=== PATIENT | male | born 1960 | race Caucasian/White ===

== ENCOUNTER → 2017-12-30 | Outpatient (CLI) | payer MEDICAID ==
[~2017-12-30] MED LIST: AC325T PO; AMIT10TA6 PO; AMIT50TA3 PO; ASP81CT PO; B 100 PO; DIGO250T PO; DLT120CCR PO; FLC1T PO; FLT05NA16 NSEACH; GBPN100C PO; IBP200T PO; LMT25T PO; MAGN100T3 PO; METO25TA PO; OSTEO BI-FLEX1 EACH PO; QTP100T PO; SRTR100T PO; ZINC15TA2 PO
== END ==
LOC: CARD 10:43
PROVIDERS: ATTEND Internal Medicine Cardiovascular Disease
DX: I47.1 Supraventricular tachycardia (principal); I63.9 Cerebral infarction, unspecified; R00.2 Palpitations; Z72.0 Tobacco use; I08.1 Rheumatic disorders of both mitral and tricuspid valves
CPT/HCPCS: 93306

== ENCOUNTER 2018-12-15 16:14 | Outpatient (RCR) | payer MEDICAID ==
[2018-12-24] MEDS ORDERED: QUET400T PO (13:03)
[2018-12-24] MEDS ORDERED: ATOR10TA66 PO (13:03)
[2018-12-24] MEDS ORDERED: ACAM333T8 PO (13:03)
[2018-12-24] MEDS ORDERED: METO-351 PO (13:03)
[2018-12-24] MEDS ORDERED: VARE0.5T PO (13:03)
[2018-12-24] MEDS ORDERED: SERT100T PO (13:03)
== END 2019-03-15 | disposition home or self-care (01) ==
LOC: CARD 16:14
PROVIDERS: ATTEND Physician Assistant
DX: I47.1 Supraventricular tachycardia (principal); R00.2 Palpitations; J44.9 Chronic obstructive pulmonary disease, unspecified; Z72.0 Tobacco use; Z82.49 Family history of ischemic heart disease and other diseases of the circulatory system

== ENCOUNTER 2018-12-18 09:37 | Emergency (ER) | payer MEDICAID ==
[~2018-12-18] VITALS: Ht 190.5 cm; Wt 68.0 kg
--- OUTSIDE RECORDS SUMMARY | 2018-12-18 09:44 | XMS REPORT ---
Author Author VICTORIANO BOSWELL Organization [facility] [address] [place] [address] Care Team Providers Care [employer] Specialist Name Role Phone VICTORIANO BOSWELL Unavailable PROBLEMS Type Condition ICD9-CM Code [id number] Code Onset Dates Condition Status SNOMED Code Problem Lumbago 724.2 Active 908343611 Problem Pain in soft tissues of limb 729.5 Active 52231798 Problem Unspecified dental caries 521.00 Active 38148454 Problem Cellulitis and abscess of leg, except foot 682.6 Active 041751200 Problem Chronic airway obstruction, not elsewhere classified 496 Active 62423463 Problem 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 Active 396916230 Problem Occlusion and stenosis of carotid artery without mention of cerebral infarction 433.10 Active 500872441528939 Problem Other specified cardiac dysrhythmias 427.89 Active 390157223 Problem Paroxysmal supraventricular tachycardia 427.0 Active 93513063 Problem Epilepsy, unspecified, not intractable, without status epilepticus G40.909 Active 93844468 Problem Allergic rhinitis, cause unspecified 477.9 Active 33630253 Problem Mixed hyperlipidemia E78.2 Active 044096988 Problem Unspecified epilepsy without mention of intractable epilepsy 345.90 Active 65869835 Problem Tobacco dependence F17.200 Active 76737280 Problem Type 1 diabetes mellitus without complications E10.9 Active 871447102 Problem ETD (eustachian tube dysfunction), left H69.82 Active 31654468 Problem Generalized anxiety disorder F41.1 Active 65768724 Problem Left maxillary sinusitis J32.0 Active 21753471 Problem Lipoma of other specified sites 214.8 Active 10730250 Problem Diabetes mellitus without mention of complication, type I [juvenile type], not stated as uncontrolled 250.01 Active 612138755 Problem PPV23 (PNEUMOVAX) DX V03.82 Active 64817898 Problem Nondependent tobacco use disorder 305.1 Active 578461407 Problem Need for prophylactic vaccination and inoculation, Influenza V04.81 Active 449027429 Problem Family history of prostate cancer Z80.42 Active 310550952 Problem Dental examination V72.2 Active 81780881 Problem Major depressive disorder, recurrent 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 Active 79223158 Problem Special screening for malignant neoplasms, colon V76.51 Active 444874706 Problem Cerebrovascular accident (CVA), unspecified mechanism I63.9 Active 592612966 Problem PSVT (paroxysmal supraventricular tachycardia) I47.1 Active 86713168 Problem Unspecified tachycardia 785.0 Active 1558857 Problem Tinea corporis B35.4 Active 90689007 Problem Marfan's syndrome 759.82 Active 26459064 Problem Sinusitis J32.9 Active 17966933 Problem Other dyspnea and respiratory abnormalities 786.09 Active 388610934 Problem Shoulder pain, right 719.41 Active 77756574 Problem Palpitations 785.1 Active 31796203 Problem Sinusitis chronic, frontal J32.1 Active 51454847 Problem Other, multiple, and unspecified sites, insect bite, nonvenomous, without mention of infection 919.4 Active 100525956 Problem Pain in right shoulder M25.511 Active 565871886 Problem Chest pain, unspecified 786.50 Active 14736427 Problem Chronic obstructive pulmonary disease, unspecified J44.9 Active 31892094 Problem Palpitations R00.2 Active 01231283 Problem Marfan's syndrome, unspecified Q87.40 Active 13007963 ALLERGIES No Information ENCOUNTERS Encounter Location Date Diagnosis [facility] [address] [place] [address] Jul, Mixed hyperlipidemia E78.2 [facility] [address] [place] [address] Jul, [facility] for [facility] Z[facility] [address] [place] [address] Jul, Major depressive disorder, recurrent 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 and Generalized anxiety disorder F41.1 [facility] [address] [place] [address] Feb, [facility] [address] [place] [address] January, Left maxillary sinusitis J32.0 [facility] [address] [place] [address] 17 Oct, [address] [address] May, Tobacco dependence F17.200 ; Mixed hyperlipidemia E78.2 and Encounter for immunization Z23 [address] [address] Apr, Major depressive disorder, recurrent 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 ; Other custodial (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 ; Palpitations R00.2 ; PSVT ( paroxysmal supraventricular tachycardia) I47.1 ; Cerebrovascular accident (CVA) , unspecified mechanism I63.9 and Tobacco use Z72.[address] [address] Apr, Tobacco dependence F17.200 and Type 1 diabetes mellitus without complications E10.[address] [address] Mar, Tobacco dependence F17.200 ; Chronic obstructive pulmonary disease, unspecified J44.9 ; Mixed hyperlipidemia E78.2 ; Palpitations R00.2 and Family history of prostate cancer Z80.[address] [address] Dec, Major depressive disorder, recurrent 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 ; Type 1 diabetes mellitus without complications E10.9 and Other custodial (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 [address] Jul, ETD ( eustachian tube dysfunction), left H69.82 and Tobacco dependence F17.200 [place] [address] [address] Jun, Pain in left shoulder M25.512 [facility] [address] [address] Jun, Pain in left shoulder M25.512 [place] [address] [id number] [place] [address] Jun, Pain in left shoulder M25.512 [facility] [id number] [place] [address] Jun, Pain in left shoulder M25.512 [facility] [id number] [place] [address] Jun, Pain in left shoulder M25.512 [facility] [id number] [place] [address] May, Pain in right shoulder M25.511 [facility] [address] [place] [address] Apr, Pain in right shoulder M25.511 [facility] [address] [place] [address] Dec, Tinea corporis B35.4 and Sinusitis J32.9 [facility] [address] [place] [address] Sep, Sinusitis chronic, frontal J32.1 and URI (upper respiratory infection) J06.[address] [address] May, Shoulder pain, right 719.41 [facility] [address] [address] January, Chronic airway obstruction, not elsewhere classified 496 ; Palpitations 785.1 ; Bleeds easily 287.9 and Mixed hyperlipidemia 272.2 [facility] [id number] [place] [address] Dec, [facility] [id number] [place] [address] Dec, [facility] [id number] [place] [address] Sep, [facility] [id number] [place] [address] Sep, [facility] [id number] [address] Aug, [facility] [id number] [address] Aug, [facility] [address] [place] [address] Aug, [facility] [place] [facility] [id number] [address] Aug, [facility] [place] [facility] [id number] [address] Jul, [facility] [place] [facility] [id number] [address] Jul, [facility] [address] [place] [address] Jul, [facility] [address] [place] [address] Jul, [facility] [place] [facility] [id number] [address] Jul, [facility] [place] [facility] [id number] [address] Jul, [facility] [place] [facility] [address] [address] May, [facility] [place] [facility] [address] [address] May, [facility] [address] [place] [address] May, [facility] [place] [facility] [id number] [address] May, [facility] [place] [facility] [address] [address] Feb, [facility] [address] [place] [address] Feb, [facility] [address] [place] [address] Feb, [facility] [address] [facility] [id number] [place] [address] Feb, [facility] [address] [place] [address] Feb, [facility] [address] [facility] [id number] [place] [address] Feb, [facility] [address] [facility] [id number] [place] [address] January, [facility] [address] [facility] [id number] [place] [address] January, [facility] [address] [place] [address] January, [facility] [address] [facility] [id number] [place] [address] January, [facility] [id number] [address] Dec, [facility] [address] [facility] [id number] [place] [address] Dec, [facility] [id number] [address] Dec, [facility] [address] [facility] [id number] [place] [address] Nov, [facility] [address] [facility] [id number] [place] [address] Nov, [facility] [address] [place] [address] Nov, [facility] [address] [facility] [id number] [address] Nov, [facility] [address] [facility] [id number] [place] [address] May, [facility] [address] [place] [address] May, [facility] [id number] [address] 10 May, 2013 [facility] [address] [id number] [place] [address] May, [facility] [place] [facility] [address] [id number] [place] [address] January, [facility] [address] [id number] [place] [address] Nov, [facility] [address] [id number] [place] [address] Jul, [facility] [address] [id number] [place] [address] Jul, [facility] [address] [id number] [place] [address] Jun, [facility] [address] [id number] [place] [address] Jun, [facility] [address] [id number] [place] [address] January, [facility] [address] [id number] [place] [address] January, [facility] [address] [id number] [place] [address] January, [facility] [address] [id number] [place] [address] Dec, [facility] [address] [id number] [place] [address] Oct, [facility] [place] [facility] [address] [id number] [place] [address] Oct, [facility] [place] [facility] [address] [id number] [place] [address] Oct, [facility] [place] [facility] [address] [id number] [place] [address] Oct, [facility] [address] [facility] [id number] [place] [address] Sep, [facility] [address] [facility] [id number] [place] [id number] Sep, IMMUNIZATIONS No Known Immunizations SOCIAL HISTORY Never Assessed REASON FOR VISIT refill medication PLAN OF CARE VITAL SIGNS MEDICATIONS Medication Instructions Dosage Frequency Start Date End Date Duration Status Atorvastatin Calcium 10 mg Orally Once a day 1 tablet 24h May, 30 day(s) Active RESULTS No Results PROCEDURES No Known procedures INSTRUCTIONS MEDICATIONS ADMINISTERED No Known Medications MEDICAL (GENERAL) HISTORY Type Description Date Medical History Chronic obstructive pulmonary disease, unspecified Medical History Mixed hyperlipidemia Medical History Palpitations Medical History Marfan's syndrome, unspecified Medical History Epilepsy, unspecified, not intractable, without status epilepticus Surgical History C 5-7 fusion 2006 Surgical History Cadiac ablation-stroke at this time 2006 Hospitalization History Hospitalization for surgery only Hospitalization [place]
--- OUTSIDE RECORDS SUMMARY | 2018-12-18 09:44 | XMS REPORT ---
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 Role Phone VICTORIANO BOSWELL Unavailable PROBLEMS Type Condition ICD9-CM Code QAY76-MA Code Onset Dates Condition Status SNOMED Code Problem Lumbago 724.2 Active 771999084 Problem Pain in soft tissues of limb 729.5 Active 65047289 Problem Unspecified dental caries 521.00 Active 21509167 Problem Cellulitis and abscess of leg, except foot 682.6 Active 178399553 Problem Chronic airway obstruction, not elsewhere classified 496 Active 30595790 Problem 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 Active 642484139 Problem Occlusion and stenosis of carotid artery without mention of cerebral infarction 433.10 Active [id number] Problem Other specified cardiac dysrhythmias 427.89 Active 548378702 Problem Paroxysmal supraventricular tachycardia 427.0 Active 11533802 Problem Epilepsy, unspecified, not intractable, without status epilepticus G40.909 Active 43313772 Problem Allergic rhinitis, cause unspecified 477.9 Active 08346076 Problem Mixed hyperlipidemia E78.2 Active 910735337 Problem Unspecified epilepsy without mention of intractable epilepsy 345.90 Active 72637972 Problem Tobacco dependence F17.200 Active 75146702 Problem Type 1 diabetes mellitus without complications E10.9 Active 142065358 Problem ETD (eustachian tube dysfunction), left H69.82 Active 92208874 Problem Generalized anxiety disorder F41.1 Active 13694980 Problem Left maxillary sinusitis J32.0 Active 07384122 Problem Lipoma of other specified sites 214.8 Active 81934771 Problem Diabetes mellitus without mention of complication, type I [juvenile type], not stated as uncontrolled 250.01 Active 803629212 Problem PPV23 (PNEUMOVAX) DX V03.82 Active 73161826 Problem Nondependent tobacco use disorder 305.1 Active 329085553 Problem Need for prophylactic vaccination and inoculation, Influenza V04.81 Active 717230456 Problem Family history of prostate cancer Z80.42 Active 456426494 Problem Dental examination V72.2 Active 06886797 Problem Major depressive disorder, recurrent 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 Active 57518763 Problem Special screening for malignant neoplasms, colon V76.51 Active 135235822 Problem Cerebrovascular accident (CVA), unspecified mechanism I63.9 Active 026176648 Problem PSVT (paroxysmal supraventricular tachycardia) I47.1 Active 69411118 Problem Unspecified tachycardia 785.0 Active 8020639 Problem Tinea corporis B35.4 Active 17019574 Problem Marfan's syndrome 759.82 Active 31937265 Problem Sinusitis J32.9 Active 78526468 Problem Other dyspnea and respiratory abnormalities 786.09 Active 776787457 Problem Shoulder pain, right 719.41 Active 02987401 Problem Palpitations 785.1 Active 10302496 Problem Sinusitis chronic, frontal J32.1 Active 18145982 Problem Other, multiple, and unspecified sites, insect bite, nonvenomous, without mention of infection 919.4 Active 209235543 Problem Pain in right shoulder M25.511 Active 322177295 Problem Chest pain, unspecified 786.50 Active 49439195 Problem Chronic obstructive pulmonary disease, unspecified J44.9 Active 66826221 Problem Palpitations R00.2 Active 56594370 Problem Marfan's syndrome, unspecified Q87.40 Active 33261624 ALLERGIES No Information ENCOUNTERS Encounter Location Date Diagnosis [facility] [address] [place] [address] Jul, [facility]counter for [facility] Z[facility] [address] [place] [address] Jul, Major depressive disorder, recurrent 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 and Generalized anxiety disorder F41.1 [address] [address] [place] [address] Feb, [facility] [address] [place] [address] January, Left maxillary sinusitis J32.0 [facility] [address] [place] [address] [facility] [address] [place] [address] 18 May, 2017 Tobacco dependence F17.200 ; Mixed hyperlipidemia E78.2 and Encounter for immunization Z23 [address] [address] Apr, Major depressive disorder, recurrent 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 ; Other nursing home (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 ; Palpitations R00.2 ; PSVT ( paroxysmal supraventricular tachycardia) I47.1 ; Cerebrovascular accident (CVA) , unspecified mechanism I63.9 and Tobacco use Z72.[address] [address] Apr, Tobacco dependence F17.200 and Type 1 diabetes mellitus without complications E10.[address] [address] Mar, Tobacco dependence F17.200 ; Chronic obstructive pulmonary disease, unspecified J44.9 ; Mixed hyperlipidemia E78.2 ; Palpitations R00.2 and Family history of prostate cancer Z80.[address] [address] Dec, Major depressive disorder, recurrent 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 ; Type 1 diabetes mellitus without complications E10.9 and 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 [address] Jul, ETD ( eustachian tube dysfunction), left H69.82 and Tobacco dependence F17.200 [place] [id number] [place] [address] Jun, Pain in left shoulder M25.512 [place] [address] [place] [id number] [place] [address] Jun, Pain in left shoulder M25.512 [place] [id number] [place] [address] Jun, Pain in left shoulder M25.512 [place] [address] [id number] [place] [address] Jun, Pain in left shoulder M25.512 [facility] [id number] [place] [address] Jun, Pain in left shoulder M25.512 [facility] [id number] [place] [address] May, Pain in right shoulder M25.[address] [address] Apr, Pain in right shoulder M25.[address] [address] Dec, Tinea corporis B35.4 and Sinusitis J32.[address] [address] Sep, Sinusitis chronic, frontal J32.1 and URI (upper respiratory infection) J06.[address] [address] May, Shoulder pain, right 719.[address] [address] January, Chronic airway obstruction, not elsewhere classified 496 ; Palpitations 785.1 ; Bleeds easily 287.9 and Mixed hyperlipidemia 272.2 [place] [address] [place] [id number] [place] [address] Dec, [facility] [id number] [place] [address] Dec, [facility] [id number] [place] [address] Sep, [facility] [address] [id number] [place] [address] Sep, [facility] [address] [id number] [place] [address] Aug, [facility] [address] [place] [address] Aug, [facility] [address] [place] [address] Aug, [facility] [place] [facility] [id number] [address] Aug, [facility] [place] [facility] [id number] [address] Jul, [facility] [place] [facility] [id number] [address] Jul, [facility] [address] [place] [address] Jul, [facility] [address] [place] [address] Jul, [facility] [place] [facility] [id number] [address] Jul, [facility] [place] [facility] [id number] [address] Jul, [facility] [place] [facility] [id number] [address] May, [facility] [place] [facility] [address] [place] [address] May, [facility] [address] [place] [address] May, [facility] [place] [facility] [id number] [address] May, [facility] [place] [facility] [id number] [address] Feb, [facility] [address] [place] [address] Feb, [facility] [address] [place] [address] Feb, [facility] [place] [facility] [address] [id number] [address] Feb, [facility] [address] [place] [facility] [place] [address] Feb, [facility] [address] [facility] [id number] [place] [address] Feb, [facility] [place] [facility] [address] [facility] [id number] [place] [address] January, [facility] [address] [facility] [id number] [place] [address] January, [facility] [address] [place] [facility] [place] [address] January, [facility] [address] [facility] [id number] [place] [address] January, [facility] [address] [facility] [id number] [place] [address] Dec, [facility] [place] [facility] [id number] [place] [address] Dec, [facility] [place] [facility] [address] [facility] [id number] [place] [address] Dec, [facility] [id number] [place] [address] Nov, [facility] [address] [facility] [id number] [place] [address] Nov, [facility] [address] [place] [facility] [place] [address] Nov, [facility] [place] [facility] [address] [facility] [id number] [place] [address] Nov, [facility] [place] [facility] [address] [facility] [id number] [address] May, [facility] [address] [place] [facility] [place] [address] May, [facility] [address] [facility] [id number] [place] [address] May, [facility] [place] [facility] [address] [facility] [id number] [place] [address] May, [facility] [address] [id number] [place] [address] January, [facility] [address] [id number] [place] [address] Nov, [facility] [address] [id number] [place] [address]- [address] Jul, [facility] [address] [id number] [place] [address] Jul, [facility] [address] [id number] [place] [address]- [address] Jun, [facility] [address] [id number] [place] [address]- [address] Jun, [facility] [address] [id number] [place] [address]- [address] January, [facility] [address] [id number] [place] [address]- [address] January, [facility] [address] [id number] [place] [address]- [address] January, [facility] [address] [facility] [id number] [place] [address]- [address] Dec, [facility] [address] [id number] [place] [address]- [address] Oct, [facility] [address] [id number] [place] [address]- [address] Oct, [facility] [place] [facility] [address] [id number] [place] [address]- [address] Oct, [facility] [place] [facility] [address] [id number] [place] [address]- [address] Oct, [facility] [place] [facility] [address] [id number] [place] [address]- [address] Sep, [facility] [address] [facility] [id number] [place] [id number] Sep, IMMUNIZATIONS Vaccine Route Administration Date Status FLULAVAL QUAD 0.5ML (6 MO & UP) 2018 IM Intramuscular Jul 31, 2018 Administered SOCIAL HISTORY Never Assessed REASON FOR VISIT flu shot, [place] PLAN OF CARE VITAL SIGNS MEDICATIONS Unknown Medications RESULTS No Results PROCEDURES Procedure Date Ordered Result Body Site FLULAVAL QUAD 0.5ML (6 MO AND UP) 2018 Jul 31, 2018 SINGLE IMMUNIZATION ADMIN Jul 31, 2018 INSTRUCTIONS MEDICATIONS ADMINISTERED No Known Medications MEDICAL [...]
--- OUTSIDE RECORDS SUMMARY | 2018-12-18 09:44 | XMS REPORT ---
Author Author VICTORIANO BOSWELL [facility] [address] Address [address] [place] [address] Care Team Providers Care Deputy Of Counter Intelligence Name Role Phone VICTORIANO BOSWELL Unavailable PROBLEMS Type Condition ICD9-CM Code WYR86-OO Code Onset Dates Condition Status SNOMED Code Problem Lumbago 724.2 Active 815325044 Problem Pain in soft tissues of limb 729.5 Active 71504523 Problem Unspecified dental caries 521.00 Active 14456125 Problem Cellulitis and abscess of leg, except foot 682.6 Active 132335877 Problem Chronic airway obstruction, not elsewhere classified 496 Active 62341425 Problem 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 Active 765466161 Problem Occlusion and stenosis of carotid artery without mention of cerebral infarction 433.10 Active [id number] Problem Other specified cardiac dysrhythmias 427.89 Active 094167131 Problem Paroxysmal supraventricular tachycardia 427.0 Active 15355955 Problem Epilepsy, unspecified, not intractable, without status epilepticus G40.909 Active 28234460 Problem Allergic rhinitis, cause unspecified 477.9 Active 81431624 Problem Mixed hyperlipidemia E78.2 Active 006188015 Problem Unspecified epilepsy without mention of intractable epilepsy 345.90 Active 27760590 Problem Tobacco dependence F17.200 Active 16727548 Problem Type 1 diabetes mellitus without complications E10.9 Active 826388489 Problem ETD (eustachian tube dysfunction), left H69.82 Active 39937021 Problem Generalized anxiety disorder F41.1 Active 33347312 Problem Left maxillary sinusitis J32.0 Active 16559628 Problem Lipoma of other specified sites 214.8 Active 46329156 Problem Diabetes mellitus without mention of complication, type I [juvenile type], not stated as uncontrolled 250.01 Active 463138196 Problem PPV23 (PNEUMOVAX) DX V03.82 Active 39726803 Problem Nondependent tobacco use disorder 305.1 Active 859978533 Problem Need for prophylactic vaccination and inoculation, Influenza V04.81 Active 897270552 Problem Family history of prostate cancer Z80.42 Active 123752107 Problem Dental examination V72.2 Active 70724644 Problem Major depressive disorder, recurrent 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 Active 83726564 Problem Special screening for malignant neoplasms, colon V76.51 Active 275905703 Problem Cerebrovascular accident (CVA), unspecified mechanism I63.9 Active 850973962 Problem PSVT (paroxysmal supraventricular tachycardia) I47.1 Active 41367808 Problem Unspecified tachycardia 785.0 Active 2564664 Problem Tinea corporis B35.4 Active 78802035 Problem Marfan's syndrome 759.82 Active 12446188 Problem Sinusitis J32.9 Active 66910697 Problem Other dyspnea and respiratory abnormalities 786.09 Active 087496560 Problem Shoulder pain, right 719.41 Active 97130178 Problem Palpitations 785.1 Active 59671609 Problem Sinusitis chronic, frontal J32.1 Active 02232571 Problem Other, multiple, and unspecified sites, insect bite, nonvenomous, without mention of infection 919.4 Active 250494738 Problem Pain in right shoulder M25.511 Active 257944301 Problem Chest pain, unspecified 786.50 Active 10390923 Problem Chronic obstructive pulmonary disease, unspecified J44.9 Active 21304082 Problem Palpitations R00.2 Active 50112600 Problem Marfan's syndrome, unspecified Q87.40 Active 89883021 ALLERGIES No Information ENCOUNTERS Encounter Location Date Diagnosis [facility] [address] [place] [address] Jul, Encounter for immunization Z23 [facility] [address] [place] [address] Jul, Major depressive disorder, recurrent 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 and Generalized anxiety disorder F41.[address] [place] [address] Feb, J[facility] [address] [place] [address] January, Left maxillary sinusitis J32.0 Sharon [address] [place] [address] [facility] [address] [place] [address] 18 May, 2017 Tobacco dependence F17.200 ; Mixed hyperlipidemia E78.2 and Encounter for immunization Z23 [address] [address] Apr, Major depressive disorder, recurrent 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 ; Other skilled nursing (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 ; Palpitations R00.2 ; PSVT ( paroxysmal supraventricular tachycardia) I47.1 ; Cerebrovascular accident (CVA) , unspecified mechanism I63.9 and Tobacco use Z72.[address] [address] Apr, Tobacco dependence F17.200 and Type 1 diabetes mellitus without complications E10.[address] [address] Mar, Tobacco dependence F17.200 ; Chronic obstructive pulmonary disease, unspecified J44.9 ; Mixed hyperlipidemia E78.2 ; Palpitations R00.2 and Family history of prostate cancer Z80.[address] [address] Dec, Major depressive disorder, recurrent 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 ; Type 1 diabetes mellitus without complications E10.9 and 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 lobsterman (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 [address] Jul, ETD ( eustachian tube dysfunction), left H69.82 and Tobacco dependence F17.200 [place] [id number] [place] [address] Jun, Pain in left shoulder M25.512 [place] [id number] [place] [address] Jun, Pain in left shoulder M25.512 [place] [id number] [place] [address] Jun, Pain in left shoulder M25.512 [place] [id number] [place] [address] Jun, Pain in left shoulder M25.512 [facility] [id number] [place] [address] Jun, Pain in left shoulder M25.512 [facility] [id number] [place] [address] May, Pain in right shoulder M25.[address] [address] Apr, Pain in right shoulder M25.[address] [address] Dec, Tinea corporis B35.4 and Sinusitis J32.[address] [address] Sep, Sinusitis chronic, frontal J32.1 and URI (upper respiratory infection) J06.[address] [address] May, Shoulder pain, right 719.[address] [address] January, Chronic airway obstruction, not elsewhere classified 496 ; Palpitations 785.1 ; Bleeds easily 287.9 and Mixed hyperlipidemia 272.2 [place] [id number] [place] [address] Dec, [facility] [id number] [place] [address] Dec, [facility] [id number] [place] [address] Sep, [facility] [id number] [place] [address] Sep, [facility] [id number] [place] [address] Aug, [facility] [address] [place] [address] Aug, [facility] [address] [place] [address] Aug, [facility] [place] [facility] [id number] [address] Aug, [facility] [place] [facility] [id number] [address] Jul, [facility] [place] [facility] [id number] [address] Jul, [facility] [address] [place] [address] Jul, [facility] [address] [place] [address] Jul, [facility] [place] [facility] [id number] [address] Jul, [facility] [place] [facility] [id number] [address] Jul, [facility] [place] [facility] [id number] [address] May, [facility] [place] [facility] [address], [place] [address] May, [facility] [address] [place] [address] May, [facility] [place] [facility] [id number] [address] May, [facility] [place] [facility] [id number] [address] Feb, [facility] [address] [place] [address] Feb, [facility] [address] [place] [address] Feb, [facility] [place] [facility] [id number] [address] Feb, [facility] [address] [place] [facility] [place] [address] Feb, [facility] [address] [facility] [id number] [place] [address] Feb, [facility] [place] [facility] [address] [facility] [id number] [place] [address] January, [facility] [address] [facility] [id number] [place] [address] January, [facility] [address] [facility] [place] [address] January, [facility] [address] [facility] [id number] [place] [address] January, [facility] [address] [facility] [id number] [place] [address] Dec, [facility] [place] [facility] [id number] [place] [address] Dec, [facility] [place] [facility] [address] [facility] [id number] [place] [address] Dec, [facility] [id number] [place] [address] Nov, [facility] [address] [facility] [id number] [place] [address] Nov, [facility] [address] [facility] [place] [address] Nov, [facility] [place] [facility] [address] [facility] [id number] [place] [address] Nov, [facility] [place] [facility] [address] [facility] [id number] [address] May, [facility] [address] [facility] [place] [address] May, [facility] [address] [facility] [id number] [place] [address] May, [facility] [place] [facility] [address] [facility] [id number] [place] [address] May, [facility] [address] [id number] [place] [address] January, [facility] [address] [id number] [place] [address] Nov, [facility] [address] [id number] [place] [address]- [address] Jul, [facility] [address] [id number] [place] [address]- [address] Jul, [facility] [address] [id number] [place] [address] Jun, [facility] [address] [id number] [place] [address]- [address] Jun, [facility] [address] [id number] [place] [address]- [address] January, [facility] [address] [id number] [place] [address]- [address] January, [facility] [address] [id number] [place] [address]- [address] January, [facility] [address] [facility] [id number] [place] [address]- [address] Dec, [facility] [address] [id number] [place] [address]- [address] Oct, [facility] [address] [id number] [place] [address]- 164[address] Oct, [facility] [place] [facility] [address] [id number] [place] [address]- [address] Oct, [facility] [place] [facility] [address] [id number] [place] [address]- [address] Oct, [facility] [place] [facility] [address] [id number] [place] [address]- [address] Sep, [facility] [place] [address] [facility] [id number] [place] [id number] Sep, IMMUNIZATIONS No Known Immunizations SOCIAL HISTORY Never Assessed REASON FOR VISIT Lab (walk-in) PLAN OF CARE Activity Details Pending Test A1C (IN HOUSE) Pending Test LIPID PANEL Pending Test CMP Pending Test CBC Pending Test TSH VITAL SIGNS MEDICATIONS Unknown Medications RESULTS No Results PROCEDURES Procedure Date Ordered Result Body Site LAB [email or web address] Jul 31, 2018 GLYCATED HEMOGLOBIN TEST Jul 31, 2018 INSTRUCTIONS MEDICATIONS ADMINISTERED No [...]
--- OUTSIDE RECORDS SUMMARY | 2018-12-18 09:45 | XMS REPORT ---
Author Author VICTORIANO BOSWELL Organization [facility] [address] Address [address] [place] [address] Care Team Providers Care Gauge Machine Operator Name Role Phone VICTORIANO BOSWELL Unavailable PROBLEMS Type Condition ICD9-CM Code PRQ82-MC Code Onset Dates Condition Status SNOMED Code Problem Pain in soft tissues of limb 729.5 Active 88487991 Problem Marfan's syndrome 759.82 Active 54100296 Problem Cellulitis and abscess of leg, except foot 682.6 Active 322708506 Problem Lumbago 724.2 Active 588884616 Problem Unspecified dental caries 521.00 Active 32788100 Problem Chronic airway obstruction, not elsewhere classified 496 Active 99443186 Problem 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 Active 331956801 Problem Occlusion and stenosis of carotid artery without mention of cerebral infarction 433.10 Active 216073270809524 Problem Other specified cardiac dysrhythmias 427.89 Active 247303789 Problem Pain in right shoulder M25.511 Active 843328491 Problem Paroxysmal supraventricular tachycardia 427.0 Active 09854445 Problem Chronic obstructive pulmonary disease, unspecified J44.9 Active 91010970 Problem Allergic rhinitis, cause unspecified 477.9 Active 02270869 Problem Epilepsy, unspecified, not intractable, without status epilepticus G40.909 Active 66130388 Problem Tobacco dependence F17.200 Active 99459729 Problem ETD (eustachian tube dysfunction), left H69.82 Active 69143002 Problem Left maxillary sinusitis J32.0 Active 49984196 Problem Cerebrovascular accident (CVA), unspecified mechanism I63.9 Active 492055332 Problem Diabetes mellitus without mention of complication, type I [juvenile type], not stated as uncontrolled 250.01 Active 544717130 Problem Nondependent tobacco use disorder 305.1 Active 118202735 Problem Need for prophylactic vaccination and inoculation, Influenza V04.81 Active 732494358 Problem Unspecified epilepsy without mention of intractable epilepsy 345.90 Active 07871271 Problem Dental examination V72.2 Active 69929722 Problem Type 1 diabetes mellitus without complications E10.9 Active 107778228 Problem Special screening for malignant neoplasms, colon V76.51 Active 463918313 Problem Major depressive disorder, recurrent 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 Active 91134982 Problem PSVT (paroxysmal supraventricular tachycardia) I47.1 Active 05403990 Problem Family history of prostate cancer Z80.42 Active 844566237 Problem Palpitations 785.1 Active 72827295 Problem Sinusitis chronic, frontal J32.1 Active 13109505 Problem Unspecified tachycardia 785.0 Active 4044186 Problem Sinusitis J32.9 Active 36459720 Problem Chest pain, unspecified 786.50 Active 94714632 Problem Lipoma of other specified sites 214.8 Active 81770253 Problem Other dyspnea and respiratory abnormalities 786.09 Active 378946745 Problem Shoulder pain, right 719.41 Active 99382216 Problem PPV23 (PNEUMOVAX) DX V03.82 Active 61569791 Problem Palpitations R00.2 Active 94039361 Problem Other, multiple, and unspecified sites, insect bite, nonvenomous, without mention of infection 919.4 Active 113438248 Problem Marfan's syndrome, unspecified Q87.40 Active 58769511 Problem Tinea corporis B35.4 Active 19516764 Problem Mixed hyperlipidemia E78.2 Active 205721204 ALLERGIES No Information ENCOUNTERS Encounter Location Date Diagnosis [address] [address] Feb, [address] [address] January, Left maxillary sinusitis J32.[address] [address] Oct, [address] [address] May, Tobacco dependence F17.200 ; Mixed hyperlipidemia E78.2 and Encounter for immunization Z23 [address] [address] Apr, Major depressive disorder, recurrent 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 ; Other termite renewal inspector (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 ; Palpitations R00.2 ; PSVT ( paroxysmal supraventricular tachycardia) I47.1 ; Cerebrovascular accident (CVA) , unspecified mechanism I63.9 and Tobacco use Z72.[address] [address] Apr, Tobacco dependence F17.200 and Type 1 diabetes mellitus without complications E10.[address] [address] Mar, Tobacco dependence F17.200 ; Chronic obstructive pulmonary disease, unspecified J44.9 ; Mixed hyperlipidemia E78.2 ; Palpitations R00.2 and Family history of prostate cancer Z80.[address] [address] Dec, Major depressive disorder, recurrent 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 ; Type 1 diabetes mellitus without complications E10.9 and Other termite renewal inspector (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 [address] Jul, ETD ( eustachian tube dysfunction), left H69.82 and Tobacco dependence F17.200 [place] [address] [address] Jun, Pain in left shoulder M25.512 [place] [address] [address] Jun, Pain in left shoulder M25.512 [place] [address] [address] Jun, Pain in left shoulder M25.512 [place] [address] [address] Jun, Pain in left shoulder M25.512 [place] [address] [address] Jun, Pain in left shoulder M25.512 [place] [address] [address] May, Pain in right shoulder M25.511 [facility] [address] [place] [address] Apr, Pain in right shoulder M25.[address] [address] Dec, Tinea corporis B35.4 and Sinusitis J32.[address] [address] Sep, Sinusitis chronic, frontal J32.1 and URI (upper respiratory infection) J06.[address] [address] May, Shoulder pain , right 719.[address] [address] January, Chronic airway obstruction, not elsewhere classified 496 ; Palpitations 785.1 ; Bleeds easily 287.9 and Mixed hyperlipidemia 272.2 [facility] [address] [place] [id number] [place] [address] Dec, [facility] [address] [place] [id number] [place] [address] Dec, [facility] [address] [place] [id number] [place] [address] Sep, [facility] [address] [place] [id number] [place] [address] Sep, [facility] [id number] [place] [address] Aug, [facility] [address] [place] [address] [id number] [place] [address] Aug, [address] [address] Aug, [facility] [id number] [place] [address] Aug, [facility] [id number] [address] Jul, [facility] [id number] [address] Jul, [facility] [address] [place] [address] Jul, [facility] [address] [place] [address] Jul, [facility] [place] [facility] [address] [facility] [id number] [place] [address] Jul, [facility] [place] [facility] [address] [facility] [id number] [address] Jul, [facility] [place] [facility] [address] [facility] [id number] [place] [address] May, [facility] [place] [facility] [address] [id number] [address] May, [facility] [address] [place] [address] May, [facility] [place] [facility] [address] [place] [id number] [address] May, [facility] [place] [facility] [address] [place] [id number] [address] Feb, [facility] [address] [place] [address] Feb, [facility] [address] [place] [address] Feb, [facility] [place] [facility] [address] [place] [id number] [address] Feb, [facility] [address] [place] [address] Feb, [facility] [place] [facility] [address] [facility] [id number], [place] [address] Feb, [facility] [place] [facility] [address] [place] [id number] [address] January, [facility] [place] [facility] [address] [place] [id number] [address] January, [facility] [address] [place] [address] January, [facility] [place] [facility] [address] [facility] [id number] [place] [address] January, [facility] [place] [facility] [address] [facility] [id number] [place] [address] Dec, [facility] [place] [facility] [address] [facility] [id number] [place] [address] Dec, [facility] [place] [facility] [address] [facility] [id number] [place] [address] Dec, [facility] [place] [facility] [address] [facility] [id number] [address] Nov, [facility] [place] [facility] [address] [place] [id number] [place] [address] Nov, [facility] [address] [place] [address] Nov, [facility] [place] [facility] [address] [place] [id number] [address] Nov, [facility] [place] [facility] [address] [place] [id number] [address] May, [facility] [address] [place] [address] May, [facility] [place] [facility] [address] [place] [id number] [address] May, [facility] [place] [facility] [address] [facility] [id number], [place] [address] 09 May, 2013 [facility] [place] [facility] [address] [facility] [id number], [place] [address] January, [facility] [place] [facility] [address] [facility] [id number] [address] Nov, [facility] [place] [facility] [address] [facility] [id number], [place] [address] Jul, [facility] [place] [facility] [address] [facility] [id number], [place] [address] Jul, [facility] [id number] [address] Jun, [facility] [id number] [address] Jun, [facility] [id number] [address] January, [facility] [id number] [address] January, [facility] [id number] [address] January, [facility] [id number] [address] Dec, [facility] [id number] [address] Oct, [facility] [id number], [place] [address] Oct, [facility] [id number] [address] Oct, [facility] [id number], [place] [address] Oct, [facility] [address] [place] [id number] [address] Sep, [facility] [address] [id number] [id number] Sep, IMMUNIZATIONS No Known Immunizations SOCIAL HISTORY Never Assessed REASON FOR VISIT refill medication PLAN OF CARE VITAL SIGNS MEDICATIONS Medication Instructions Dosage Frequency Start Date End Date Duration Status Gabapentin 100 mg 2 Capsule 2 times per day Dec, Active RESULTS No Results PROCEDURES No Known procedures INSTRUCTIONS MEDICATIONS ADMINISTERED No Known Medications MEDICAL (GENERAL) HISTORY Type Description Date Medical History Chronic obstructive pulmonary disease, unspecified Medical History Mixed hyperlipidemia Medical History Palpitations Medical History Marfan's syndrome, unspecified Medical History Epilepsy, unspecified, not intractable, without status epilepticus Surgical History C 5-7 fusion 2007 Surgical History Cadiac ablation-stroke at this time 2006 Hospitalization History Hospitalization for surgery only Hospitalization History [place] for [place]
--- OUTSIDE RECORDS SUMMARY | 2018-12-18 09:45 | XMS REPORT ---
Author Author DI ELDRIDGE [facility] [employer] Address Unknown Phone Unavailable Care Team Providers Care Title Search Manager Name Role Phone DI ELDRIDGE Unavailable Allergies No Known Allergies Problems Problem Type Condition Code Onset Dates Condition Status Problem Allergic rhinitis, cause unspecified 477.9 Active Problem Other specified cardiac dysrhythmias 427.89 Active Problem Nondependent tobacco use disorder 305.1 Active Problem Marfan's syndrome 759.82 Active Problem Paroxysmal supraventricular tachycardia 427.0 Active Problem Chronic airway obstruction, not elsewhere classified 496 Active Problem Unspecified epilepsy without mention of intractable epilepsy 345.90 Active Problem 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 Active Problem Other dyspnea and respiratory abnormalities 786.09 Active Problem Unspecified dental caries 521.00 Active Problem Chest pain, unspecified 786.50 Active Problem Special screening for malignant neoplasms, colon V76.51 Active Problem Diabetes mellitus without mention of complication, type I [juvenile type], not stated as uncontrolled 250.01 Active Problem Shoulder pain, right 719.41 Active Problem Sinusitis J32.9 Active Problem Sinusitis chronic, frontal J32.1 Active Problem Palpitations R00.2 Active Problem Marfan's syndrome, unspecified Q87.40 Active Problem Need for prophylactic vaccination and inoculation, Influenza V04.81 Active Problem PPV23 (PNEUMOVAX) DX V03.82 Active Problem Mixed hyperlipidemia E78.2 Active Problem Occlusion and stenosis of carotid artery without mention of cerebral infarction 433.10 Active Problem Pain in right shoulder M25.511 Active Problem Tinea corporis B35.4 Active Problem Epilepsy, unspecified, not intractable, without status epilepticus G40.909 Active Problem Chronic obstructive pulmonary disease, unspecified J44.9 Active Problem Pain in soft tissues of limb 729.5 Active Assessment Pain in left shoulder M25.512 Active Problem Lumbago 724.2 Active Problem Unspecified tachycardia 785.0 Active Problem Palpitations 785.1 Active Problem Dental examination V72.2 Active Problem Lipoma of other specified sites 214.8 Active Problem Other, multiple, and unspecified sites, insect bite, nonvenomous, without mention of infection 919.4 Active Problem Cellulitis and abscess of leg, except foot 682.6 Active Medications No Known Medications Procedures Procedure Coding System Code Date THERAPEUTIC EXERCISES CPT-4 53266 Jul 09, 2016 Results No Known Results Summary Purpose eClinical[employer] Submission
--- OUTSIDE RECORDS SUMMARY | 2018-12-18 09:45 | XMS REPORT ---
Author Author VICTORIANO BOSWELL [facility] [place] Address [address] [place] [address] Care Team Providers Care Miter Sawyer Name Role Phone VICTORIANO BOSWELL Unavailable PROBLEMS Type Condition ICD9-CM Code BMN73-GU Code Onset Dates Condition Status SNOMED Code Problem Marfan's syndrome 759.82 Active 63419712 Problem Unspecified tachycardia 785.0 Active 7809617 Problem Lumbago 724.2 Active 129632668 Problem Pain in soft tissues of limb 729.5 Active 69613610 Problem Cellulitis and abscess of leg, except foot 682.6 Active 506636736 Problem Unspecified dental caries 521.00 Active 42942010 Problem Chronic airway obstruction, not elsewhere classified 496 Active 76335815 Problem 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 Active 431379839 Problem Occlusion and stenosis of carotid artery without mention of cerebral infarction 433.10 Active 142880882367977 Problem Marfan's syndrome, unspecified Q87.40 Active 70541374 Problem Other specified cardiac dysrhythmias 427.89 Active 016543294 Problem Pain in right shoulder M25.511 Active 567529542 Problem Paroxysmal supraventricular tachycardia 427.0 Active 41317671 Problem Chronic obstructive pulmonary disease, unspecified J44.9 Active 61113578 Problem ETD (eustachian tube dysfunction), left H69.82 Active 89027635 Problem Epilepsy, unspecified, not intractable, without status epilepticus G40.909 Active 36174852 Problem PSVT (paroxysmal supraventricular tachycardia) I47.1 Active 02616445 Problem Cerebrovascular accident (CVA), unspecified mechanism I63.9 Active 959016686 Problem Nondependent tobacco use disorder 305.1 Active 973008346 Problem Unspecified epilepsy without mention of intractable epilepsy 345.90 Active 47041518 Problem Dental examination V72.2 Active 25645360 Problem Allergic rhinitis, cause unspecified 477.9 Active 09112574 Problem Special screening for malignant neoplasms, colon V76.51 Active 735981883 Problem Major depressive disorder, recurrent 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 Active 53134976 Problem Tobacco dependence F17.200 Active 59321042 Problem Family history of prostate cancer Z80.42 Active 183985670 Problem Type 1 diabetes mellitus without complications E10.9 Active 884853273 Problem Other dyspnea and respiratory abnormalities 786.09 Active 497070216 Problem Shoulder pain, right 719.41 Active 78544966 Problem Palpitations 785.1 Active 37816260 Problem Sinusitis chronic, frontal J32.1 Active 73178672 Problem Other, multiple, and unspecified sites, insect bite, nonvenomous, without mention of infection 919.4 Active 205913099 Problem Diabetes mellitus without mention of complication, type I [juvenile type], not stated as uncontrolled 250.01 Active 205511008 Problem Chest pain, unspecified 786.50 Active 62351083 Problem Lipoma of other specified sites 214.8 Active 00279091 Problem Need for prophylactic vaccination and inoculation, Influenza V04.81 Active 262545420 Problem Mixed hyperlipidemia E78.2 Active 689347082 Problem PPV23 (PNEUMOVAX) DX V03.82 Active 21003453 Problem Palpitations R00.2 Active 30293400 Problem Sinusitis J32.9 Active 94176816 Problem Tinea corporis B35.4 Active 69868544 ALLERGIES Substance Reaction Event Type Date Status Albuterol Sulfate HFA Unknown Drug Allergy Apr, Active Abilify memory loss Drug Allergy Apr, Active Tramadol Unknown Drug Allergy Apr, Active ENCOUNTERS Encounter Location Date Diagnosis [address] [id number] [place] [id number] Oct, [address] [id number] [place] [id number] May, Tobacco dependence F17.200 ; Mixed hyperlipidemia E78.2 and Encounter for immunization Z23 [address] [id number] [place] [id number] Apr, Major depressive disorder, recurrent 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 ; 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 ; Palpitations R00.2 ; PSVT (paroxysmal supraventricular tachycardia) I47.1 ; Cerebrovascular accident (CVA), unspecified mechanism I63.9 and Tobacco use Z72.0 [facility] [place] [address] [facility] C [id number] [place] [id number] Apr, Tobacco dependence F17.200 and Type 1 diabetes mellitus without complications E10.9 [facility] [place] [address] [facility] C [id number] [place] [id number] Mar, Tobacco dependence F17.200 ; Chronic obstructive pulmonary disease, unspecified J44.9 ; Mixed hyperlipidemia E78.2 ; Palpitations R00.2 and Family history of prostate cancer Z80.42 [facility] [place] [address] [place] [address] C [id number] [place] [id number] Dec, Major depressive disorder, recurrent 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 ; Type 1 diabetes mellitus without complications E10.9 and Other alf (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 [facility] [address] [place] [address] [id number] [place] [id number] Jul, ETD (eustachian tube dysfunction), left H69.82 and Tobacco dependence F17.200 [facility] [id number] [place] [address] Jun, Pain in left shoulder M25.512 [facility] [id number] [place] [address] 1997 Jun, Pain in left shoulder M25.512 [facility] [id number] [place] [address] Jun, Pain in left shoulder M25.512 [facility] [id number] [place] [address] Jun, Pain in left shoulder M25.512 [facility] [id number] [place] [address] Jun, Pain in left shoulder M25.512 [facility] [id number] [place] [address] 3786 May, Pain in right shoulder M25.511 [facility] [address] [place] [address] [address] [id number] [place] [id number] Apr, Pain in right shoulder M25.511 [facility] [place] [address] [facility] [address] [id number] [place] [id number] Dec, Tinea corporis B35.4 and Sinusitis J32.9 [facility] [place] [address] [facility] [address] [id number] [place] [id number] Sep, Sinusitis chronic, frontal J32.1 and URI (upper respiratory infection) J06.9 [facility] [place] [address] [facility] [address] [id number] [place] [id number] May, Shoulder pain, right 719.41 [facility] [place] [address] [facility] [address] [id number] [place] [id number] January, Chronic airway obstruction, not elsewhere classified 496 ; Palpitations 785.1 ; Bleeds easily 287.9 and Mixed hyperlipidemia 272.2 [facility] [address] [address] Dec, [facility] [address] [place] [address] Dec, [facility] [address] [place] [address] Sep, [facility] [address], [place] [address] Sep, [facility] [address] [place] [address] Aug, [facility] [address] [id number] [address] Aug, [facility] [place] [address] [facility] [address] [id number] [place] [id number] Aug, [facility] [address] [id number] [address] Aug, [facility] [address] [address] Jul, [facility] [place] [facility] [address] [id number] [facility] [place] [address] Jul, [facility] [place] [address] [id number] [place] [id number] Jul, [facility] [place] [address] [id number] [place] [address] Jul, [facility] [place] [facility] [address] [id number] [place] [address] Jul, [facility] [place] [facility] [address] [id number] [place] [address] Jul, [facility] [place] [facility] [address] [id number] [place] [address] May, [facility] [place] [facility] [address] [facility] [id number] [place] [address] May, [facility] [place] [address] [facility] [address] [id number] [place] [id number] May, [facility] [place] [facility] [address] [facility] [id number] [place] [address] May, [facility] [place] [facility] [address] [id number] [place] [address] Feb, [facility] [place] [address] [facility] [address] [id number] [place] [address] Feb, [facility] [place] [address] [id number] [place] [id number] Feb, [facility] [place] [facility] [address] [id number] [place] [address] Feb, [facility] [place] [address] [id number] [place] [id number] Feb, [facility] [place] [facility] [address] [id number] [place] [address] Feb, [facility] [place] [facility] [address] [facility] [id number] [place] [address] January, [facility] [place] [facility] [address] [id number] [place] [address] January, [facility] [place] [address] [id number] [place] [id number] January, [facility] [address] [id number] [place] [address] January, [facility] [address] [id number] [place] [address] Dec, [facility] [address] [id number] [place] [address] Dec, [facility] [address] [id number] [place] [address] Dec, [facility] [address] [id number] [place] [address] Nov, [facility] [address] [id number] [place] [address] Nov, [facility] [place] [address] [facility] [address] [id number] [place] [address] Nov, [facility] [address] [id number] [place] [address] Nov, [facility] [address] [id number] [place] [address] May, [facility] [place] [address] [id number] [place] [address] May, [facility] [address] [id number] [place] [address] May, [facility] [place] [facility] [address] [id number] [place] [address] May, [facility] [place] [facility] [address] [id number] [place] [address] January, [facility] [place] [facility] [address] [id number] [place] [address] Nov, [facility] [address] [id number], [place] [address] Jul, [facility] [address], [place] [address] Jul, [facility] [address], [place] [address] Jun, [facility] [address], [place] [address] Jun, [facility] [address] [id number], [place] [address] January, [facility] [address], [place] [address] January, [facility] [address], [place] [address] January, [facility] [address], [place] [address] Dec, [facility] [id number], [place] [address] Oct, [facility] [address], [place] [address] Oct, [facility] [address] [id number], [place] [address] Oct, [facility] [id number], [place] [address] Oct, [facility] [address] [id number], [place] [address] Sep, [facility] [address] [id number] [id number] Sep, IMMUNIZATIONS No Known Immunizations SOCIAL HISTORY Never Assessed REASON FOR VISIT smoking f/u, [facility] PLAN OF CARE Activity Details Follow Up 4 Weeks Reason:smoking VITAL SIGNS Height 72 in 2017-05-15 Weight 147.4 lbs 2017-05-15 Temperature 97.8 degrees Fahrenheit 2017-05-15 Heart Rate 80 bpm 2017-05-15 Respiratory Rate 14 2017-05-15 BMI 19.99 kg/m2 2017-05-15 Blood pressure systolic 110 mmHg 2017-05-15 Blood pressure diastolic 70 mmHg 2017-05-15 MEDICATIONS Medication Instructions Dosage Frequency Start Date End Date Duration Status Breo Ellipta 100-25 mcg/dose 1 Inhalant 1 time per day Jul, Active Diazepam 10 mg take 1 tablet by Oral route 1 time per day PRN Jul, Active Multivitamin 1 time per day May, Active Cyclobenzaprine HCl 10MG TAKE ONE TABLET BY MOUTH TWICE DAILY NEEDED 30 Active Cardizem CD 120 mg take 1 capsule (120 mg) by oral route once daily Jun, Active Seroquel XR 200 mg 1 tablet by Oral route 1 time per day for 30 day(s) Sep, Active Gabapentin 100 mg 2 Capsule 2 times per day Dec, Active Digoxin 250 MCG 1 tablet by Oral route 1 time per day further refills per cardiology May, Active Chantix Starting Month Josh 0.5 MG X 11 & 1 MG X 42 as directed Mar, Active sertraline 100 mg take 2 tablets (200 mg) by oral route once daily January, Active Chantix 1 MG Orally Twice a day 1 tablet 12h Apr, Sep, 30 day(s) Active B-100 daily Jul, Active RESULTS No Results PROCEDURES No Known [...]
--- OUTSIDE RECORDS SUMMARY | 2018-12-18 09:45 | XMS REPORT ---
Author Author DI ELDRIDGE [facility] [employer] Address Unknown Phone Unavailable Care Team Providers Care Route Delivery Manager Name Role Phone DI ELDRIDGE Unavailable [...] Coding System Code Date THERAPEUTIC EXERCISES CPT-4 79232 Jul 04, 2016 Results No Known Results Summary Purpose eClinicalWorks Submission
--- OUTSIDE RECORDS SUMMARY | 2018-12-18 09:45 | XMS REPORT ---
Author Author DI ELDRIDGE [facility] [employer] Address Unknown Phone Unavailable Care Team Providers Care Breastfeeding Peer Counselor Name Role Phone DI ELDRIDGE Unavailable Allergies [...] Coding System Code Date THERAPEUTIC EXERCISES CPT-4 14874 Jul 11, 2016 Results No Known Results Summary Purpose eClinicalWorks Submission
--- OUTSIDE RECORDS SUMMARY | 2018-12-18 09:45 | XMS REPORT ---
Author Author VICTORIANO BOSWELL [facility] [place] Address [address] [place] [address] Care Team Providers Care Planning Analyst Name Role Phone VICTORIANO BOSWELL Unavailable PROBLEMS Type Condition ICD9-CM Code LPM90-RN Code Onset Dates Condition Status SNOMED Code Problem Marfan's syndrome 759.82 Active 69502091 Problem Unspecified tachycardia 785.0 Active 7117420 Problem Lumbago 724.2 Active 637543042 Problem Pain in soft tissues of limb 729.5 Active 53486114 Problem Cellulitis and abscess of leg, except foot 682.6 Active 104632579 Problem Unspecified dental caries 521.00 Active 73838914 Problem Chronic airway obstruction, not elsewhere classified 496 Active 61443040 Problem 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 Active 388448618 Problem Occlusion and stenosis of carotid artery without mention of cerebral infarction 433.10 Active 593286290087168 Problem Marfan's syndrome, unspecified Q87.40 Active 97737163 Problem Other specified cardiac dysrhythmias 427.89 Active 824857823 Problem Pain in right shoulder M25.511 Active 518569659 Problem Paroxysmal supraventricular tachycardia 427.0 Active 09449542 Problem Chronic obstructive pulmonary disease, unspecified J44.9 Active 10361560 Problem ETD (eustachian tube dysfunction), left H69.82 Active 33208740 Problem Epilepsy, unspecified, not intractable, without status epilepticus G40.909 Active 32920418 Problem PSVT (paroxysmal supraventricular tachycardia) I47.1 Active 35000139 Problem Cerebrovascular accident (CVA), unspecified mechanism I63.9 Active 081049368 Problem Nondependent tobacco use disorder 305.1 Active 753358218 Problem Unspecified epilepsy without mention of intractable epilepsy 345.90 Active 77839745 Problem Dental examination V72.2 Active 32718271 Problem Allergic rhinitis, cause unspecified 477.9 Active 23355146 Problem Special screening for malignant neoplasms, colon V76.51 Active 819312173 Problem Major depressive disorder, recurrent 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 Active 11371834 Problem Tobacco dependence F17.200 Active 43877426 Problem Family history of prostate cancer Z80.42 Active 271867452 Problem Type 1 diabetes mellitus without complications E10.9 Active 534316065 Problem Other dyspnea and respiratory abnormalities 786.09 Active 219807495 Problem Shoulder pain, right 719.41 Active 07544284 Problem Palpitations 785.1 Active 98913236 Problem Sinusitis chronic, frontal J32.1 Active 53697043 Problem Other, multiple, and unspecified sites, insect bite, nonvenomous, without mention of infection 919.4 Active 485056485 Problem Diabetes mellitus without mention of complication, type I [juvenile type], not stated as uncontrolled 250.01 Active 200798593 Problem Chest pain, unspecified 786.50 Active 92365617 Problem Lipoma of other specified sites 214.8 Active 63456583 Problem Need for prophylactic vaccination and inoculation, Influenza V04.81 Active 660361984 Problem Mixed hyperlipidemia E78.2 Active 071733793 Problem PPV23 (PNEUMOVAX) DX V03.82 Active 38384587 Problem Palpitations R00.2 Active 39530151 Problem Sinusitis J32.9 Active 92661749 Problem Tinea corporis B35.4 Active 54784760 ALLERGIES No Information SOCIAL HISTORY Never Assessed PLAN OF CARE Activity Details Follow Up prn Reason: VITAL SIGNS MEDICATIONS Unknown Medications RESULTS No Results PROCEDURES Procedure Date Ordered Result Body Site GLYCATED HEMOGLOBIN TEST January 01, 2017 [facility] January 01, 2017 VENIPUNCT, ROUTINE* January 01, 2017 IMMUNIZATIONS No Known Immunizations MEDICAL (GENERAL) HISTORY Type Description Date Medical [...]
--- OUTSIDE RECORDS SUMMARY | 2018-12-18 09:46 | XMS REPORT ---
Author Author VICTORIANO BOSWELL [facility] eClinicalWorks Address Unknown Phone Unavailable Care Team Providers Care Gynecological Assistant Name Role Phone VICTORIANO BOSWELL CP Unavailable Allergies, Adverse Reactions, Alerts Substance Reaction Event Type Abilify memory loss Drug Allergy Tramadol Info Not Available Drug Allergy Albuterol Sulfate 90 Mcg/actuation Hfa Aerosol Inh Info Not Available Non Drug Allergy Problems Problem Type Condition ICD-9 Code Onset Dates Condition Status Assessment Shoulder pain, right 719.41 Active Problem Need for prophylactic vaccination and inoculation, Influenza V04.81 Active Problem Other specified cardiac dysrhythmias 427.89 Active Problem Unspecified tachycardia 785.0 Active Problem Allergic rhinitis, cause unspecified 477.9 Active Problem Palpitations 785.1 Active Problem Lumbago 724.2 Active Problem Pain in soft tissues of limb 729.5 Active Problem Special screening for malignant neoplasms, colon V76.51 Active Problem Unspecified dental caries 521.00 Active Problem Paroxysmal supraventricular tachycardia 427.0 Active Problem Nondependent tobacco use disorder 305.1 Active Problem Shoulder pain, right 719.41 Active Problem Marfan's syndrome 759.82 Active Problem Cellulitis and abscess of leg, except foot 682.6 Active Problem Other, multiple, and unspecified sites, insect bite, nonvenomous, without mention of infection 919.4 Active Problem Lipoma of other specified sites 214.8 Active Problem Dental examination V72.2 Active Problem 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 Active Problem Other dyspnea and respiratory abnormalities 786.09 Active Problem Chronic airway obstruction, not elsewhere classified 496 Active Problem Unspecified epilepsy without mention of intractable epilepsy 345.90 Active Problem Occlusion and stenosis of carotid artery without mention of cerebral infarction 433.10 Active Problem PPV23 (PNEUMOVAX) DX V03.82 Active Problem Chest pain, unspecified 786.50 Active Problem Diabetes mellitus without mention of complication, type I [juvenile type], not stated as uncontrolled 250.01 Active Medications Medication Code System Code Instructions Start Date End Date Status Dosage [place] M[place] [facility] [address]-31 100-25 mcg/dose Aug 13, 2014 1 Inhalant 1 time per day acamprosate ND 0 333 mg December 01, 2013 take 2 tablets (666 mg) by oral route 3 times per day Cyclobenzaprine HCl [facility] [id number] 10MG TAKE ONE TABLET BY MOUTH TWICE DAILY NEEDED sertraline ND 0 100 mg February 22, 2012 take 2 tablets (200 mg) by oral route once daily Digoxin [facility] [address]-57 250 mcg Jun 08, 2013 1 tablet by Oral route 1 time per day further refills per cardiology Diazepam [facility] [address]-20 10 mg Aug 18, 2014 take 1 tablet by Oral route 1 time per day PRN Seroquel XR [facility] [address]-40 200 mg Oct 18, 2011 1 tablet by Oral route 1 time per day for 30 day(s) B-100 [facility] [address]19 Aug 06, 2012 daily Gabapentin [facility] [address]-18 100 mg January 13, 2014 2 Capsule 2 times per day Cardizem CD [facility] [address]-12 120 mg Jul 09, 2012 take 1 capsule ( 120 mg) by oral route once daily Multivitamin [facility] [address] Jun 11, 2013 1 time per day Procedures Procedure Coding System Code Date Office Visit, Est Pt., Level 3 CPT-4 08327 Jun 01, 2015 Vital Signs Date/Time: Jun 01, 2015 Temperature 98.3 F Weight 139 lbs Height 72 in BMI 18.85 Index Blood Pressure Diastolic 80 mmHg Blood Pressure Systolic 124 mmHg Cardiac Monitoring Heart Rate 92 bpm Results No Known Results Summary Purpose eClinicalWorks Submission
--- OUTSIDE RECORDS SUMMARY | 2018-12-18 09:46 | XMS REPORT ---
Author Author VICTORIANO BOSWELL [facility] [place] Address [address] [place] [address] Care Team Providers Care Picking Tech Name Role Phone VICTORIANO BOSWELL Unavailable PROBLEMS Type Condition ICD9-CM Code ZLR85-HC Code Onset Dates Condition Status SNOMED Code Problem Marfan's syndrome 759.82 Active 23669683 Problem Unspecified tachycardia 785.0 Active 9081911 Problem Lumbago 724.2 Active 759437211 Problem Pain in soft tissues of limb 729.5 Active 55186375 Problem Cellulitis and abscess of leg, except foot 682.6 Active 348995397 Problem Unspecified dental caries 521.00 Active 31379169 Problem Chronic airway obstruction, not elsewhere classified 496 Active 54917061 Problem 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 Active 542189722 Problem Occlusion and stenosis of carotid artery without mention of cerebral infarction 433.10 Active 206937353430645 Problem Marfan's syndrome, unspecified Q87.40 Active 57434866 Problem Other specified cardiac dysrhythmias 427.89 Active 424769364 Problem Pain in right shoulder M25.511 Active 103831549 Problem Paroxysmal supraventricular tachycardia 427.0 Active 89693893 Problem Chronic obstructive pulmonary disease, unspecified J44.9 Active 89121051 Problem ETD (eustachian tube dysfunction), left H69.82 Active 75117105 Problem Epilepsy, unspecified, not intractable, without status epilepticus G40.909 Active 32113558 Problem PSVT (paroxysmal supraventricular tachycardia) I47.1 Active 68186199 Problem Cerebrovascular accident (CVA), unspecified mechanism I63.9 Active 736840810 Problem Nondependent tobacco use disorder 305.1 Active 073240033 Problem Unspecified epilepsy without mention of intractable epilepsy 345.90 Active 00603863 Problem Dental examination V72.2 Active 02440371 Problem Allergic rhinitis, cause unspecified 477.9 Active 71148452 Problem Special screening for malignant neoplasms, colon V76.51 Active 226166904 Problem Major depressive disorder, recurrent 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 Active 26328331 Problem Tobacco dependence F17.200 Active 94188389 Problem Family history of prostate cancer Z80.42 Active 657038684 Problem Type 1 diabetes mellitus without complications E10.9 Active 307848569 Problem Other dyspnea and respiratory abnormalities 786.09 Active 365626248 Problem Shoulder pain, right 719.41 Active 44724184 Problem Palpitations 785.1 Active 78199773 Problem Sinusitis chronic, frontal J32.1 Active 50802833 Problem Other, multiple, and unspecified sites, insect bite, nonvenomous, without mention of infection 919.4 Active 450156701 Problem Diabetes mellitus without mention of complication, type I [juvenile type], not stated as uncontrolled 250.01 Active 096158466 Problem Chest pain, unspecified 786.50 Active 42263305 Problem Lipoma of other specified sites 214.8 Active 76351709 Problem Need for prophylactic vaccination and inoculation, Influenza V04.81 Active 222394355 Problem Mixed hyperlipidemia E78.2 Active 568202177 Problem PPV23 (PNEUMOVAX) DX V03.82 Active 75888797 Problem Palpitations R00.2 Active 19804864 Problem Sinusitis J32.9 Active 12346711 Problem Tinea corporis B35.4 Active 76878794 ALLERGIES No Information ENCOUNTERS Encounter Location Date Diagnosis [address] [id number] [place] [id number] Oct, [address] [id number] [place] [id number] May, Tobacco dependence F17.200 ; Mixed hyperlipidemia E78.2 and Encounter for immunization Z23 [address] [id number] [place] [id number] Apr, 2017 Major depressive disorder, recurrent 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 ; Other retirement (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 ; Palpitations R00.2 ; PSVT (paroxysmal supraventricular tachycardia) I47.1 ; Cerebrovascular accident (CVA), unspecified mechanism I63.9 and Tobacco use Z72.[address] [id number] [place] [address] Apr, Tobacco dependence F17.200 and Type 1 diabetes mellitus without complications E10.9 [facility] [place] [address] [place] [address] [id number] [place] [id number] Mar, Tobacco dependence F17.200 ; Chronic obstructive pulmonary disease, unspecified J44.9 ; Mixed hyperlipidemia E78.2 ; Palpitations R00.2 and Family history of prostate cancer Z80.42 [facility] [place] [address] [place] [address] [id number] [place] [id number] Dec, Major depressive disorder, recurrent 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 ; Type 1 diabetes mellitus without complications E10.9 and 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 [facility] [place] [address] [place] [address] [id number] [place] [id number] Jul, ETD (eustachian tube dysfunction), left H69.82 and Tobacco dependence F17.200 [facility] [id number] [place] [address] Jun, Pain in left shoulder M25.512 [facility] [id number] [place] [address]884 Jun, Pain in left shoulder M25.512 [facility] [id number] [place] [address]- 6193 Jun, Pain in left shoulder M25.512 [facility] [id number] [place] [address] 3022 Jun, Pain in left shoulder M25.512 [facility] [id number] [place] [address]- 1817 Jun, Pain in left shoulder M25.512 [facility] [id number] [place] [address]- [address]356 May, Pain in right shoulder M25.511 [facility] [place] [address] [place] [address] C [id number] [place] [id number] Apr, Pain in right shoulder M25.511 [facility] [place] [address] [place] [address] C [id number] [place] [id number] Dec, Tinea corporis B35.4 and Sinusitis J32.9 [facility] [place] [address] [facility] [address] [id number] [place] [id number] Sep, Sinusitis chronic, frontal J32.1 and URI (upper respiratory infection) J06.9 [facility] [place] [address] [facility] C [id number] [place] [id number] May, Shoulder pain, right 719.41 [facility] [place] [address] [facility] C [id number] [place] [id number] January, Chronic airway obstruction, not elsewhere classified 496 ; Palpitations 785.1 ; Bleeds easily 287.9 and Mixed hyperlipidemia 272.2 [facility] [address] [address] Dec, [facility] [id number] [place] [address] Dec, [facility] [id number] [place] [address]97 Sep, [facility] [id number] [place] [address]- 7725 Sep, [facility] [address] [address] Aug, [facility] [address] [address] Aug, [facility] [place] [address] [facility] [address] [id number] [place] [id number] Aug, [facility] [id number] [place] [address]- [address] Aug, [facility] [address] [address] Jul, [facility] [address] [address] Jul, [facility] [place] [address] [id number] [place] [id number] Jul, [facility] [place] [address] [id number] [place] [id number] Jul, [facility] [address] [id number] [place] [address] Jul, [facility] [address] [id number] [place] [address] Jul, [facility] [address] [id number] [place] [address] May, [facility] [address] [id number] [place] [address] May, [facility] [place] [address] [id number] [place] [id number] May, [facility] [address] [id number] [place] [address] May, [facility] [address] [id number] [place] [address] Feb, [facility] [place] [address] [id number] [place] [id number] Feb, [facility] [place] [address] [id number] [place] [address] Feb, [facility] [address] [id number] [place] [address] Feb, [facility] [place] [address] [id number] [place] [id number] Feb, [facility] [place] [facility] [address] [id number] [place] [address] Feb, [facility] [place] [facility] [address] [id number] [place] [address] January, [facility] [place] [facility] [address] [id number] [place] [address] January, [facility] [place] [address] [id number] [place] [address] January, [facility] [address] [id number] [place] [address] January, [facility] [place] [facility] [address] [id number] [place] [address] Dec, [facility] [address] [id number] [place] [address] Dec, [facility] [place] [facility] [address] [id number] [place] [address]- 8966 Dec, [facility] [address] [id number] [place] [address] Nov, [facility] [address] [id number] [place] [address] Nov, [facility] [place] [address] [facility] [address] [id number] [place] [id number] Nov, [facility] [address] [id number] [place] [address] Nov, [facility] [address] [id number] [place] [address] May, [facility] [place] [address] [id number] [place] [id number] May, [facility] [address] [id number] [place] [address] May, [facility] [place] [facility] [address] [id number] [place] [address] May, [facility] [place] [facility] [address] [id number] [place] [address] January, [facility] [place] [facility] [address] [id number] [place] [address] Nov, [facility] [place] [facility] [address] [id number] [place] [address] Jul, [facility] [place] [facility] [address] [address] Jul, [facility] [address] [address] Jun, [facility] [address] [address] Jun, [facility] [address] [address] January, [facility] [address] [address] January, [facility] [address] [address] January, [facility] [address] [address] Dec, [facility] [address] [address] Oct, [facility] [address] [address] Oct, [facility] [address] [address] Oct, [facility] [address] [address] Oct, [facility] [address] [id number] [address] Sep, [facility] [address] [id number] [address] Sep, IMMUNIZATIONS No Known Immunizations SOCIAL HISTORY Never Assessed REASON FOR VISIT labs. Radha PLAN OF CARE Activity Details Follow Up prn Reason: VITAL SIGNS MEDICATIONS Medication Instructions Dosage Frequency Start Date End Date Duration Status Chantix 1 MG Orally Twice a day 1 tablet 12h 16 Apr, 2017 Sep, 30 day(s) Active Digoxin 250 MCG 1 tablet by Oral route 1 time per day further refills per cardiology May, Active Chantix Starting Month Josh 0.5 MG X 11 & 1 MG X 42 as directed Mar, Active Cardizem CD 120 mg take 1 capsule (120 mg) by oral route once daily Jun, Active sertraline 100 mg take 2 tablets (200 mg) by oral route once daily January, Active B-100 daily Jul, Active Seroquel XR 200 mg 1 tablet by Oral route 1 time per day for 30 day(s) Sep, Active Breo Ellipta 100-25 mcg/dose 1 Inhalant 1 time per day Jul, Active Diazepam 10 mg take 1 tablet by Oral route 1 time per day PRN Jul, Active Cyclobenzaprine HCl 10MG TAKE ONE TABLET BY MOUTH TWICE DAILY NEEDED 30 Active Multivitamin 1 time per day May, Active Gabapentin 100 mg 2 Capsule 2 times per day Dec, Active RESULTS Name Result Date Reference Range A1C 2017-05-24 Hemoglobin A1c 5.2 4.8-5.6 CBC 2017-05-24 WBC 7.5 3.4-10.8 RBC 4.76 4.14-5.80 Hemoglobin 14.7 12.6-17.7 Hematocrit 44.8 37.5-51.0 MCV 94 79-97 MCH 30.9 26.6-33.0 MCHC 32.8 31.5-35.7 RDW 15.0 12.3-15.4 Platelets 291 150-379 Neutrophils 55 Lymphs 35 Monocytes 9 Eos 1 Basos 0 Immature Cells Neutrophils (Absolute) 4.1 1.4-7.0 Lymphs (Absolute) 2.7 0.7-3.1 Monocytes(Absolute) 0.7 0.1-0.9 Eos (Absolute) 0.1 0.0-0.4 Baso (Absolute) 0.0 0.0-0.2 Immature Granulocytes 0 Immature Grans (Abs) 0.0 0.0-0.1 NRBC Hematology Comments: LIPID PANEL 2017-05-24 Cholesterol, Total 264 100-199 Triglycerides 149 0-149 HDL Cholesterol 93 >39 VLDL Cholesterol Jack 30 5-40 LDL Cholesterol Calc 141 0-99 Comment: CMP 2017-05-24 Glucose, Serum 101 65-99 BUN 15 6-24 Creatinine, Serum 0.91 0.76-1.27 eGFR If NonAfricn Am 95 >59 eGFR If Africn Am 109 >59 BUN/Creatinine Ratio 16 9-20 Sodium, Serum 139 134-144 Potassium, Serum 4.9 3.5-5.2 Chloride, Serum 96 96-106 Carbon Dioxide, Total 24 18-29 Calcium, Serum 9.9 8.7-10.2 Protein, Total, Serum 7.2 6.0-8.5 Albumin, Serum 4.7 3.5-5.5 Globulin, Total 2.5 1.5-4.5 A/G Ratio 1.9 1.2-2.2 Bilirubin, Total 0.4 0.0-1.2 Alkaline Phosphatase, S 87 39-117 AST (SGOT) 21 0-40 ALT (SGPT) 22 0-44 PROCEDURES Procedure Date Ordered Result Body Site ROUTINE VENIPUNCTURE 2017-05-24 N/A LAB NOT BILLED BY [facility] May 24, 2017 Hemoglobin Test Send Out 0 dollar May 24, 2017 INSTRUCTIONS MEDICATIONS ADMINISTERED No Known Medications MEDICAL [...]
--- OUTSIDE RECORDS SUMMARY | 2018-12-18 09:46 | XMS REPORT ---
Author Author [facility] Medical Staff Organization [facility] Address [address] [place] [id number] Phone [phone] Care Team Providers Care Warehouse Logistics Manager Name Role Phone VICTORIANO BOSWELL MD PP [phone] Summary purpose TRANSITION OF CARE AUTO GENERATION Chief Complaint and Reason for Visit No authorized Reason for Visit (Admitting Diagnosis) is available for this visit. Problem list No authorized problems tracked for continuity of care are available for this visit. Encounters No authorized problems tracked for encounter diagnoses are available for this visit. Medications No home medications recorded for this patient visit Allergies, adverse reactions, alerts No allergy information is available for this patient. Immunizations No immunizations recorded for this patient visit Relevant diagnostic tests and/or laboratory data No authorized results are available for this patient visit History of procedures No procedures recorded for this patient visit. Functional status No functional or cognitive status observations are available for this visit. Vital signs No authorized vital signs are available for this visit. Social history No Social History or smoking status observations were recorded for this visit. ( Unknown if ever smoked.) Treatment Plan No treatment plan text is available for this visit. Hospital discharge instructions No discharge instruction text is available for this visit.
--- OUTSIDE RECORDS SUMMARY | 2018-12-18 09:46 | XMS REPORT ---
Author Author DI ELDRIDGE [facility] [employer] Address Unknown Phone Unavailable Care Team Providers Care Paper Stacker Name Role Phone DI ELDRIDGE Unavailable Allergies [...] of limb 729.5 Active Assessment Pain in right shoulder M25.511 Active Problem Lumbago 724.2 Active Problem Unspecified [...] Coding System Code Date THERAPEUTIC EXERCISES CPT-4 41801 Jun 25, 2016 PT EVALUATION CPT-4 24791 Jun 25, 2016 Results No Known Results Summary Purpose eClinicalWorks Submission
--- OUTSIDE RECORDS SUMMARY | 2018-12-18 09:46 | XMS REPORT ---
Author Author ISELA SHAW Organization [facility] [address] Address [address] [place] [address] Care Team Providers Care Mobile Home Mechanic Name Role Phone ISELA SHAW Unavailable PROBLEMS Type Condition ICD9-CM Code ZCI39-[id number] Code Onset Dates Condition Status SNOMED Code Problem Pain in soft tissues of limb 729.5 Active 56262265 Problem Marfan's syndrome 759.82 Active 41174003 Problem Cellulitis and abscess of leg, except foot 682.6 Active 127111460 Problem Lumbago 724.2 Active 837414195 Problem Unspecified dental caries 521.00 Active 39744939 Problem Chronic airway obstruction, not elsewhere classified 496 Active 72506299 Problem 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 Active 863203681 Problem Occlusion and stenosis of carotid artery without mention of cerebral infarction 433.10 Active [id number] Problem Other specified cardiac dysrhythmias 427.89 Active 733008916 Problem Pain in right shoulder M25.511 Active 115114062 Problem Paroxysmal supraventricular tachycardia 427.0 Active 84743076 Problem Chronic obstructive pulmonary disease, unspecified J44.9 Active 78350738 Problem Allergic rhinitis, cause unspecified 477.9 Active 83973181 Problem Epilepsy, unspecified, not intractable, without status epilepticus G40.909 Active 03460834 Problem Tobacco dependence F17.200 Active 59781281 Problem ETD (eustachian tube dysfunction), left H69.82 Active 17124165 Problem Left maxillary sinusitis J32.0 Active 24564016 Problem Cerebrovascular accident (CVA), unspecified mechanism I63.9 Active 193729097 Problem Diabetes mellitus without mention of complication, type I [juvenile type], not stated as uncontrolled 250.01 Active 680008084 Problem Nondependent tobacco use disorder 305.1 Active 447499936 Problem Need for prophylactic vaccination and inoculation, Influenza V04.81 Active 301768244 Problem Unspecified epilepsy without mention of intractable epilepsy 345.90 Active 30767204 Problem Dental examination V72.2 Active 55114054 Problem Type 1 diabetes mellitus without complications E10.9 Active 416416318 Problem Special screening for malignant neoplasms, colon V76.51 Active 997821277 Problem Major depressive disorder, recurrent 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 Active 80841498 Problem PSVT (paroxysmal supraventricular tachycardia) I47.1 Active 64742593 Problem Family history of prostate cancer Z80.42 Active 178638609 Problem Palpitations 785.1 Active 08913369 Problem Sinusitis chronic, frontal J32.1 Active 14671529 Problem Unspecified tachycardia 785.0 Active 0945674 Problem Sinusitis J32.9 Active 39784851 Problem Chest pain, unspecified 786.50 Active 47152146 Problem Lipoma of other specified sites 214.8 Active 56194346 Problem Other dyspnea and respiratory abnormalities 786.09 Active 509932863 Problem Shoulder pain, right 719.41 Active 41042122 Problem PPV23 (PNEUMOVAX) DX V03.82 Active 77393383 Problem Palpitations R00.2 Active 65015530 Problem Other, multiple, and unspecified sites, insect bite, nonvenomous, without mention of infection 919.4 Active 956001238 Problem Marfan's syndrome, unspecified Q87.40 Active 63434771 Problem Tinea corporis B35.4 Active 84963345 Problem Mixed hyperlipidemia E78.2 Active 244911826 ALLERGIES Substance Reaction Event Type Date Status Albuterol Sulfate HFA Unknown Drug Allergy January, Active Abilify memory loss Drug Allergy January, Active Tramadol Unknown Drug Allergy January, Active ENCOUNTERS Encounter Location Date Diagnosis [address] [address] Feb, [address] [address] January, Left maxillary sinusitis J32.[address] [address] Oct, [address] [address] May, Tobacco dependence F17.200 ; Mixed hyperlipidemia E78.2 and Encounter for immunization Z23 [address] [address] Apr, Major depressive disorder, recurrent 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 ; Other intermediate (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 ; Palpitations R00.2 ; PSVT ( paroxysmal supraventricular tachycardia) I47.1 ; Cerebrovascular accident (CVA) , unspecified mechanism I63.9 and Tobacco use Z72.[address] [address] Apr, Tobacco dependence F17.200 and Type 1 diabetes mellitus without complications E10.[address] [address] Mar, Tobacco dependence F17.200 ; Chronic obstructive pulmonary disease, unspecified J44.9 ; Mixed hyperlipidemia E78.2 ; Palpitations R00.2 and Family history of prostate cancer Z80.[address] [address] Dec, Major depressive disorder, recurrent 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 ; Type 1 diabetes mellitus without complications E10.9 and 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 [address] Jul, ETD ( eustachian tube dysfunction), left H69.82 and Tobacco dependence F17.200 [facility] [id number] [place] [address] Jun, Pain in left shoulder M25.512 [facility] [id number] [place] [address] Jun, Pain in left shoulder M25.512 [facility] [address] [address] Jun, Pain in left shoulder M25.512 [facility] [address] [address] Jun, Pain in left shoulder M25.512 [facility] [address] [address] Jun, Pain in left shoulder M25.512 [facility] [address] [place] [address] May, Pain in right shoulder M25.[address] [address] Apr, Pain in right shoulder M25.[address] [address] Dec, Tinea corporis B35.4 and Sinusitis J32.[address] [address] Sep, Sinusitis chronic, frontal J32.1 and URI (upper respiratory infection) J06.[address] [address] May, Shoulder pain , right 719.[address] [address] January, Chronic airway obstruction, not elsewhere classified 496 ; Palpitations 785.1 ; Bleeds easily 287.9 and Mixed hyperlipidemia 272.2 [facility] [id number] [place] [address] Dec, [facility] [id number] [place] [address] Dec, [facility] [id number] [place] [address] Sep, [facility] [id number] [place] [address] Sep, [facility] [address] [place] [address] Aug, [facility] [id number] [place] [address] Aug, [address] [address] Aug, [facility] [address] [place] [address] Aug, [facility] [place] [facility] [address] [facility] [id number] [address] Jul, [facility] [place] [facility] [address] [facility] [id number] [place] [address] Jul, [facility] [address] [place] [address] Jul, [facility] [address] [place] [address] Jul, [facility] [place] [facility] [address] [facility] [id number] [place] [address] Jul, [facility] [place] [facility] [address] [facility] [id number] [place] [address] Jul, [facility] [place] [facility] [address] [id number] [address] May, [facility] [place] [facility] [address] [id number] [address] May, [facility] [address] [place] [address] May, [facility] [place] [facility] [address] [id number] [address] May, [facility] [place] [facility] [address] [id number] [address] Feb, [facility] [address] [place] [address] Feb, [facility] [address] [place] [address] Feb, [facility] [place] [facility] [address] [facility] [id number] [place] [address] Feb, [facility] [address] [place] [address] Feb, [facility] [place] [facility] [address] [id number] [address] Feb, [facility] [place] [facility] [address] [id number] [address] January, [facility] [place] [facility] [address] [id number] [place] [address] January, [facility] [address] [place] [address] January, [facility] [place] [facility] [address] [id number] [place] [address] January, [facility] [address] [facility] [id number] [place] [address] Dec, [facility] [place] [facility] [address] [id number] [place] [address] Dec, [facility] [place] [facility] [address] [facility] [id number] [place] [address] Dec, [facility] [place] [facility] [address] [facility] [id number] [place] [address] Nov, [facility] [place] [facility] [address] [id number] [place] [address] Nov, [facility] [address] [facility] [place] [address] Nov, [facility] [address] [id number] [place] [address] Nov, [facility] [place] [facility] [address] [id number] [place] [address] 18 May, 2013 [facility] [address] [place] [address] 12 May, 2013 [facility] [place] [facility] [address] [facility] [id number] [place] [address] 10 May, 2013 [facility] [place] [facility] [address] [facility] [id number] [place] [address] 09 May, 2013 [facility] [place] [facility] [address] [facility] [id number] [place] [address] January, [facility] [place] [facility] [address] [facility] [id number] [place] [address] 06 Nov, 2012 [facility] [place] [facility] [address] [address] Jul, [facility] [address] [address] Jul, [facility] [address] [address] Jun, [facility] [address] [address] Jun, [facility] [address] [address] January, [facility] [id number] [place] [address] January, [facility] [address] [place] [address] January, [facility] [address] [place] [address] Dec, [facility] [address] [address] Oct, [facility] [address] [address] Oct, [facility] [address] [address] Oct, [facility] [address] [address] Oct, [facility] [address] [id number] [address] Sep, [facility] [id number] [id number] Sep, IMMUNIZATIONS No Known Immunizations SOCIAL HISTORY Never Assessed REASON FOR VISIT Sinus Infection- patient had tooth extracted several years ago and his sinuses drain constantly. He has fluid in L ear and foul taste in his mouth Wellington Jackson RN PLAN OF CARE Activity Details Follow Up prn Reason: VITAL SIGNS Height 72 in 2018-02-10 Weight 146 lbs 2018-02-10 Temperature 98.1 degrees Fahrenheit 2018-02-10 Heart Rate 66 bpm 2018-02-10 Respiratory Rate 16 2018-02-10 BMI 19.80 kg/m2 2018-02-10 Blood pressure systolic 123 mmHg 2018-02-10 Blood pressure diastolic 87 mmHg 2018-02-10 MEDICATIONS Medication Instructions Dosage Frequency Start Date End Date Duration Status Breo Ellipta 100-25 mcg/dose 1 Inhalant 1 time per day Jul, Active Cardizem CD 120 mg take 1 capsule (120 mg) by oral route once daily Jun, Active sertraline 100 mg take 2 tablets (200 mg) by oral route once daily January, Active Augmentin 875-125 MG Orally every 12 hrs 1 tablet 12h 10 day(s) Active Diazepam 10 mg take 1 tablet by Oral route 1 time per day PRN Jul, Active Gabapentin 100 mg 2 Capsule 2 times per day Dec, Active Atorvastatin Calcium 10 mg Orally Once a day 1 tablet 24h May, 30 day(s) Not-Taking Seroquel XR 200 mg 1 tablet by Oral route 1 time per day for 30 day(s) Sep, Active Chantix Starting Month Josh 0.5 MG X 11 & 1 MG X 42 as directed Mar, Active Digoxin 250 MCG 1 tablet by Oral route 1 time per day further refills per cardiology May, Active RESULTS No Results PROCEDURES No Known [...]
--- OUTSIDE RECORDS SUMMARY | 2018-12-18 09:47 | XMS REPORT ---
Author Author DI ELDRIDGE [facility] eClinicalWorks Address Unknown Phone Unavailable Care Team Providers Care Senior Payroll Specialist Name Role Phone DI ELDRIDGE Unavailable Allergies [...] Coding System Code Date THERAPEUTIC EXERCISES CPT-4 86863 Jul 02, 2016 Results No Known Results Summary Purpose eClinicalWorks Submission
--- OUTSIDE RECORDS SUMMARY | 2018-12-18 09:47 | XMS REPORT ---
Author Author VICTORIANO BOSWELL [facility] [place] Address [address] [place] [address] Care Team Providers Care Nursing Clinical Director Name Role Phone VICTORIANO BOSWELL Unavailable PROBLEMS Type Condition ICD9-CM Code UIT13-PW Code Onset Dates Condition Status SNOMED Code Problem Pain in soft tissues of limb 729.5 Active 91033009 Problem Marfan's syndrome 759.82 Active 34264600 Problem Cellulitis and abscess of leg, except foot 682.6 Active 317991956 Problem Lumbago 724.2 Active 689216950 Problem Unspecified dental caries 521.00 Active 54280676 Problem Chronic airway obstruction, not elsewhere classified 496 Active 31735244 Problem 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 Active 159562294 Problem Occlusion and stenosis of carotid artery without mention of cerebral infarction 433.10 Active [id number] Problem Other specified cardiac dysrhythmias 427.89 Active 964176004 Problem Pain in right shoulder M25.511 Active 784706848 Problem Paroxysmal supraventricular tachycardia 427.0 Active 06645195 Problem Chronic obstructive pulmonary disease, unspecified J44.9 Active 44943581 Problem Allergic rhinitis, cause unspecified 477.9 Active 58535101 Problem Epilepsy, unspecified, not intractable, without status epilepticus G40.909 Active 81500117 Problem Tobacco dependence F17.200 Active 90260532 Problem ETD (eustachian tube dysfunction), left H69.82 Active 44433600 Problem Left maxillary sinusitis J32.0 Active 71920722 Problem Cerebrovascular accident (CVA), unspecified mechanism I63.9 Active 702207786 Problem Diabetes mellitus without mention of complication, type I [juvenile type], not stated as uncontrolled 250.01 Active 663905275 Problem Nondependent tobacco use disorder 305.1 Active 256837203 Problem Need for prophylactic vaccination and inoculation, Influenza V04.81 Active 874279280 Problem Unspecified epilepsy without mention of intractable epilepsy 345.90 Active 76345969 Problem Dental examination V72.2 Active 87798339 Problem Type 1 diabetes mellitus without complications E10.9 Active 092359508 Problem Special screening for malignant neoplasms, colon V76.51 Active 212677477 Problem Major depressive disorder, recurrent 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 Active 52765517 Problem PSVT (paroxysmal supraventricular tachycardia) I47.1 Active 57823736 Problem Family history of prostate cancer Z80.42 Active 720247109 Problem Palpitations 785.1 Active 16025426 Problem Sinusitis chronic, frontal J32.1 Active 55388247 Problem Unspecified tachycardia 785.0 Active 7572967 Problem Sinusitis J32.9 Active 86628558 Problem Chest pain, unspecified 786.50 Active 63056598 Problem Lipoma of other specified sites 214.8 Active 75344997 Problem Other dyspnea and respiratory abnormalities 786.09 Active 835711100 Problem Shoulder pain, right 719.41 Active 68613599 Problem PPV23 (PNEUMOVAX) DX V03.82 Active 23642753 Problem Palpitations R00.2 Active 72855001 Problem Other, multiple, and unspecified sites, insect bite, nonvenomous, without mention of infection 919.4 Active 631228305 Problem Marfan's syndrome, unspecified Q87.40 Active 22899252 Problem Tinea corporis B35.4 Active 17367220 Problem Mixed hyperlipidemia E78.2 Active 667732008 ALLERGIES No Information ENCOUNTERS Encounter Location Date Diagnosis [facility] [place] [address] [facility] [address] [id number] [facility] [place] [id number] Feb, [facility] [place] [address] [facility] [address] [id number] [place] [id number] January, Left maxillary sinusitis J32.0 [facility] [place] [address] [facility] [address] [id number] [place] [id number] Oct, [facility] [place] [address] [facility] [address] [id number] [place] [address] May, Tobacco dependence F17.200 ; Mixed hyperlipidemia E78.2 and Encounter for immunization Z23 [facility] [place] [address] [facility] [address] [id number] [place] [address] Apr, Major depressive disorder, recurrent 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 ; 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 [id number] [place] [id number] Apr, Tobacco dependence F17.200 and Type 1 diabetes mellitus without complications E10.9 [facility] [place] [address] [place] [address] [id number] [place] [id number] Mar, Tobacco dependence F17.200 ; Chronic obstructive pulmonary disease, unspecified J44.9 ; Mixed hyperlipidemia E78.2 ; Palpitations R00.2 and Family history of prostate cancer Z80.42 [facility] [address] [place] [address] [id number] [place] [id number] Dec, Major depressive disorder, recurrent 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 ; Type 1 diabetes mellitus without complications E10.9 and Other detention (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 [facility] [place] [id number] [place] [id number] Jul, ETD (eustachian tube dysfunction), left H69.82 and Tobacco dependence F17.200 [place] [id number] [place] [address] Jun, Pain in left shoulder M25.512 [place] [address] [id number] [place] [address] Jun, Pain in left shoulder M25.512 [facility] [id number] [place] [address] Jun, Pain in left shoulder M25.512 [place] [id number] [place] [address]67 Jun, Pain in left shoulder M25.512 [facility] [id number] [place] [address] Jun, Pain in left shoulder M25.512 [place] [address] [place] [address] [id number] [address] May, Pain in right shoulder M25.511 [facility] [place] [address] [facility] [address] [id number] [place] [address] Apr, Pain in right shoulder M25.511 [facility] [place] [address] [facility] [address] [id number] [place] [address] Dec, Tinea corporis B35.4 and Sinusitis J32.9 [facility] [place] [address] [facility] C [id number] [place] [address] Sep, Sinusitis chronic, frontal J32.1 and URI (upper respiratory infection) J06.9 [facility] [place] [address] [place] [address] C [id number] [place] [address] May, Shoulder pain, right 719.41 [facility] [place] [address] [place] [address] C [id number] [place] [id number] January, Chronic airway obstruction, not elsewhere classified 496 ; Palpitations 785.1 ; Bleeds easily 287.9 and Mixed hyperlipidemia 272.2 [facility] [address], [place] [address] 14 Dec, 2014 [facility] [address], [place] [address] Dec, [facility] [address], [place] [address] Sep, [facility] [address], [place] [address] Sep, [facility] [address], [place] [address] Aug, [facility] [address] [address] Aug, [facility] [address] [place] [address] C [id number] [place] [id number] Aug, [facility] [address] [address] Aug, [facility] [place] [facility] [address] [facility] [id number] [place] [address] Jul, [facility] [place] [facility] [address] [facility] [id number] [place] [address] Jul, [facility] [place] [address] [facility] [address] [id number] [place] [id number] Jul, [facility] [place] [address] [facility] [address] [id number] [place] [id number] Jul, [facility] [place] [facility] [address] [facility] [id number], [place] [address] Jul, [facility] [place] [facility] [address] [facility] [id number], [place] [address] Jul, [facility] [place] [facility] [address] [facility] [id number], [place] [address] May, [facility] [place] [facility] [address] [facility] [id number], [place] [address] May, [facility] [place] [address] [facility] [address] [id number] [facility] [place] [id number] May, [facility] [place] [facility] [address] [facility] [id number], [place] [address] May, [facility] [place] [facility] [address] [facility] [id number], [place] [address] Feb, [facility] [place] [address] [facility] [address] [id number] [place] [id number] Feb, [facility] [place] [address] [facility] [address] [id number] [place] [address] Feb, [facility] [place] [facility] [address] [facility] [id number] [place] [address] Feb, [facility] [place] [address] [facility] [address] [id number] [place] [address] Feb, [facility] [place] [facility] [address] [facility] [id number], [place] [address] Feb, [facility] [address] [id number] [place] [address] January, [facility] [address] [id number] [place] [address] January, [facility] [place] [address] [facility] [address] [id number] [place] [id number] January, [facility] [address] [id number] [place] [address] January, [facility] [address] [id number] [place] [address] Dec, [facility] [place] [facility] [address] [id number] [place] [address] Dec, [facility] [address] [facility] [id number] [place] [address] Dec, [facility] [address] [id number], [place] [address] Nov, [facility] [place] [facility] [address] [id number] [place] [address] Nov, [facility] [place] [address] [facility] [address] [id number] [place] [address] Nov, [facility] [place] [facility] [address] [id number], [place] [address] Nov, [facility] [place] [facility] [address] [id number], [place] [address] May, [facility] [place] [address] [id number] [place] [address] May, [facility] [place] [facility] [address] [id number] [place] [address] May, [facility] [place] [facility] [address] [id number], [place] [address] May, [facility] [place] [facility] [address] [facility] [id number], [place] [address] January, [facility] [address] [id number], [place] [address] Nov, [facility] [address], [place] [address] Jul, [facility] [address], [place] [address] Jul, [facility] [address], [place] [address] Jun, [facility] [address] [place] [address] [id number] [address] Jun, [facility] [address], [place] [address] January, [facility] [address], [place] [address] January, [facility] [address], [place] [address] January, [facility] [address], [place] [address] Dec, [facility] [address], [place] [address] Oct, [facility] [address], [place] [address] Oct, [facility] [address] [id number], [place] [address] Oct, [facility] [address] [id number], [place] [address] Oct, [facility] [address] [id number], [place] [address] Sep, [facility] [place] [address] [id number] [id number] Sep, IMMUNIZATIONS No Known Immunizations SOCIAL HISTORY Never Assessed REASON FOR VISIT Medication refill request PLAN OF CARE VITAL SIGNS MEDICATIONS Medication [...]
--- OUTSIDE RECORDS SUMMARY | 2018-12-18 09:47 | XMS REPORT ---
Author Author VICTORIAN[facility] BOSWELL [facility] [place] Address [address] [place] [address] Care Team Providers Care Manager Civil Name Role Phone VICTORIANO BOSWELL Unavailable PROBLEMS Type Condition ICD9-CM Code KNB83-TX Code Onset Dates Condition Status SNOMED Code Problem Marfan's syndrome 759.82 Active 48886362 Problem Allergic rhinitis, cause unspecified 477.9 Active 55892147 Problem Paroxysmal supraventricular tachycardia 427.0 Active 71239017 Problem Nondependent tobacco use disorder 305.1 Active 602491620 Problem Chronic airway obstruction, not elsewhere classified 496 Active 81625499 Problem Unspecified epilepsy without mention of intractable epilepsy 345.90 Active 48010728 Problem 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 Active 078156222 Problem Other dyspnea and respiratory abnormalities 786.09 Active 666667282 Problem Chest pain, unspecified 786.50 Active 44193121 Problem Special screening for malignant neoplasms, colon V76.51 Active 782485930 Problem Diabetes mellitus without mention of complication, type I [juvenile type], not stated as uncontrolled 250.01 Active 19873375 Problem Shoulder pain, right 719.41 Active 63885033 Problem Occlusion and stenosis of carotid artery without mention of cerebral infarction 433.10 Active 181386420083291 Problem Sinusitis chronic, frontal J32.1 Active 25662991 Problem Tinea corporis B35.4 Active 43672368 Problem Sinusitis J32.9 Active 54568688 Problem Mixed hyperlipidemia E78.2 Active 530308775 Problem Palpitations R00.2 Active 90800495 Problem Unspecified tachycardia 785.0 Active 6639161 Problem Need for prophylactic vaccination and inoculation, Influenza V04.81 Active 176866349 Problem PPV23 (PNEUMOVAX) DX V03.82 Active Problem Chronic obstructive pulmonary disease, unspecified J44.9 Active 68505951 Problem Pain in right shoulder M25.511 Active 827778894 Problem Marfan's syndrome, unspecified Q87.40 Active 84560200 Problem Epilepsy, unspecified, not intractable, without status epilepticus G40.909 Active 91559821 Assessment Pain in right shoulder M25.511 Apr, Active 660699262 Problem Lumbago 724.2 Active 069136888 Problem Other specified cardiac dysrhythmias 427.89 Active 742977289 Problem Other, multiple, and unspecified sites, insect bite, nonvenomous, without mention of infection 919.4 Active 605778086 Problem Palpitations 785.1 Active 94012191 Problem Pain in soft tissues of limb 729.5 Active 61605510 Problem Lipoma of other specified sites 214.8 Active 60073563 Problem Unspecified dental caries 521.00 Active 28897805 Problem Cellulitis and abscess of leg, except foot 682.6 Active 314462121 Problem Dental examination V72.2 Active 95754798 ALLERGIES Substance Reaction Event Type Date Status Albuterol Sulfate HFA Unknown Drug Allergy Apr, Active Abilify memory loss Drug Allergy Apr, Active Tramadol Unknown Drug Allergy Apr, Active SOCIAL HISTORY No smoking Hx information available PLAN OF CARE VITAL SIGNS Height 72 in 2016-05-25 Weight 147.2 lbs 2016-05-25 Heart Rate 102 bpm 2016-05-25 Respiratory Rate 16 2016-05-25 BMI 19.96 kg/m2 2016-05-25 Blood pressure systolic 136 mmHg 2016-05-25 Blood pressure diastolic 80 mmHg 2016-05-25 MEDICATIONS Medication Instructions Dosage Frequency Start Date End Date Duration Status Digoxin 250 mcg 1 tablet by Oral route 1 time per day further refills per cardiology May, Active Diazepam 10 mg take 1 tablet by Oral route 1 time per day PRN Jul, Active B-100 daily Jul, Active Gabapentin 100 mg 2 Capsule 2 times per day Dec, Active Multivitamin 1 time per day May, Active Breo Ellipta 100-25 mcg/dose 1 Inhalant 1 time per day Jul, Active Seroquel XR 200 mg 1 tablet by Oral route 1 time per day for 30 day(s) Sep, Active Cardizem CD 120 mg take 1 capsule (120 mg) by oral route once daily Jun, Active sertraline 100 mg take 2 tablets (200 mg) by oral route once daily January, Active Cyclobenzaprine HCl 10MG TAKE ONE TABLET BY MOUTH TWICE DAILY NEEDED 30 Active RESULTS No Results PROCEDURES Procedure Date Ordered Related Diagnosis Body Site Office Visit, Est Pt., Level 3 May 25, 2016 IMMUNIZATIONS No Known Immunizations
--- OUTSIDE RECORDS SUMMARY | 2018-12-18 09:47 | XMS REPORT ---
Author Author VICTORIANO BOSWELL [facility] [place] Address [address] [place] [address] Care Team Providers Care Watchguard Name Role Phone VICTORIANO BOSWELL Unavailable PROBLEMS Type Condition ICD9-CM Code THM84-LK Code Onset Dates Condition Status SNOMED Code Problem Marfan's syndrome 759.82 Active 11840883 Problem Unspecified tachycardia 785.0 Active 5815280 Problem Lumbago 724.2 Active 914437867 Problem Pain in soft tissues of limb 729.5 Active 18824754 Problem Cellulitis and abscess of leg, except foot 682.6 Active 078011399 Problem Unspecified dental caries 521.00 Active 80590384 Problem Chronic airway obstruction, not elsewhere classified 496 Active 84984615 Problem 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 Active 152254694 Problem Occlusion and stenosis of carotid artery without mention of cerebral infarction 433.10 Active 201228870125941 Problem Marfan's syndrome, unspecified Q87.40 Active 26126857 Problem Other specified cardiac dysrhythmias 427.89 Active 113376947 Problem Pain in right shoulder M25.511 Active 128404464 Problem Paroxysmal supraventricular tachycardia 427.0 Active 83635257 Problem Chronic obstructive pulmonary disease, unspecified J44.9 Active 93451029 Problem ETD (eustachian tube dysfunction), left H69.82 Active 00324577 Problem Epilepsy, unspecified, not intractable, without status epilepticus G40.909 Active 92804539 Problem PSVT (paroxysmal supraventricular tachycardia) I47.1 Active 50003944 Problem Cerebrovascular accident (CVA), unspecified mechanism I63.9 Active 765365897 Problem Nondependent tobacco use disorder 305.1 Active 072444279 Problem Unspecified epilepsy without mention of intractable epilepsy 345.90 Active 43041835 Problem Dental examination V72.2 Active 61680359 Problem Allergic rhinitis, cause unspecified 477.9 Active 97826996 Problem Special screening for malignant neoplasms, colon V76.51 Active 238252222 Problem Major depressive disorder, recurrent 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 Active 21626166 Problem Tobacco dependence F17.200 Active 11746903 Problem Family history of prostate cancer Z80.42 Active 405228970 Problem Type 1 diabetes mellitus without complications E10.9 Active 092031454 Problem Other dyspnea and respiratory abnormalities 786.09 Active 459828928 Problem Shoulder pain, right 719.41 Active 25239758 Problem Palpitations 785.1 Active 85338328 Problem Sinusitis chronic, frontal J32.1 Active 72910839 Problem Other, multiple, and unspecified sites, insect bite, nonvenomous, without mention of infection 919.4 Active 798674292 Problem Diabetes mellitus without mention of complication, type I [juvenile type], not stated as uncontrolled 250.01 Active 416429663 Problem Chest pain, unspecified 786.50 Active 84375021 Problem Lipoma of other specified sites 214.8 Active 34846944 Problem Need for prophylactic vaccination and inoculation, Influenza V04.81 Active 757245089 Problem Mixed hyperlipidemia E78.2 Active 939875404 Problem PPV23 (PNEUMOVAX) DX V03.82 Active 64425632 Problem Palpitations R00.2 Active 32214003 Problem Sinusitis J32.9 Active 01681070 Problem Tinea corporis B35.4 Active 25281019 ALLERGIES Substance Reaction Event Type Date Status Albuterol Sulfate HFA Unknown Drug Allergy May, Active Abilify memory loss Drug Allergy May, Active Tramadol Unknown Drug Allergy May, Active ENCOUNTERS Encounter Location Date Diagnosis [address] [id number] [place] [id number] Oct, [address] [id number] [place] [id number] May, Tobacco dependence F17.200 ; Mixed hyperlipidemia E78.2 and Encounter for immunization Z23 [address] [id number] [place] [id number] Apr, Major depressive disorder, recurrent 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 ; Other long term care pharmacist (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 ; Palpitations R00.2 ; PSVT (paroxysmal supraventricular tachycardia) I47.1 ; Cerebrovascular accident (CVA), unspecified mechanism I63.9 and Tobacco use Z72.0 [facility] [place] [address] [facility] [address] [id number] [place] [id number] Apr, Tobacco dependence F17.200 and Type 1 diabetes mellitus without complications E10.9 [facility] [place] [address] [facility] [address] [id number] [place] [id number] Mar, Tobacco dependence F17.200 ; Chronic obstructive pulmonary disease, unspecified J44.9 ; Mixed hyperlipidemia E78.2 ; Palpitations R00.2 and Family history of prostate cancer Z80.42 [facility] [place] [address] [place] [address] C [id number] [place] [id number] Dec, Major depressive disorder, recurrent 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 ; Type 1 diabetes mellitus without complications E10.9 and Other shelter (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 [facility] [address] [place] [address] [id number] [place] [id number] Jul, ETD (eustachian tube dysfunction), left H69.82 and Tobacco dependence F17.200 [facility] [id number] [place] [address] Jun, Pain in left shoulder M25.512 [facility] [id number] [place] [address] Jun, Pain in left shoulder M25.512 [facility] [id number] [place] [address] Jun, Pain in left shoulder M25.512 [facility] [id number] [place] [address] Jun, Pain in left shoulder M25.512 [facility] [id number] [place] [address]- [address] Jun, Pain in left shoulder M25.512 [facility] [id number] [place] [address] May, Pain in right shoulder M25.511 [facility] [address] [place] [address] [address] [id number] [place] [address] Apr, Pain in right shoulder M25.511 [facility] [place] [address] [facility] [address] [id number] [place] [address] Dec, Tinea corporis B35.4 and Sinusitis J32.9 [facility] [place] [address] [facility] [address] [id number] [place] [address] Sep, Sinusitis chronic, frontal J32.1 and URI (upper respiratory infection) J06.9 [facility] [place] [address] [facility] [address] [id number] [place] [id number] May, Shoulder pain, right 719.41 [facility] [place] [address] [facility] [address] [id number] [place] [address] January, Chronic airway obstruction, not elsewhere classified 496 ; Palpitations 785.1 ; Bleeds easily 287.9 and Mixed hyperlipidemia 272.2 [facility] [address] [address] Dec, [facility] [address] [address] Dec, [facility] [address] [address] Sep, [facility] [address] [address] Sep, [facility] [address] [address] Aug, [facility] [id number] [address] Aug, [facility] [place] [address] [facility] [address] [id number] [place] [id number] Aug, [facility] [address] [id number] [address] Aug, [facility] [address] [address] Jul, [facility] [place] [facility] [address] [id number] [facility] [place] [address] Jul, [facility] [place] [address] [id number] [place] [address] Jul, [facility] [place] [address] [id number] [place] [id number] Jul, [facility] [place] [facility] [address] [id number] [place] [address] Jul, [facility] [place] [facility] [address] [id number] [place] [address] Jul, [facility] [place] [facility] [address] [id number] [place] [address] May, [facility] [place] [facility] [address] [facility] [id number] [place] [address] May, [facility] [place] [address] [facility] [address] [id number] [place] [id number] May, [facility] [place] [facility] [address] [facility] [id number] [place] [address] May, [facility] [place] [facility] [address] [id number] [place] [address] Feb, [facility] [place] [address] [facility] [address] [id number] [place] [address] Feb, [facility] [place] [address] [id number] [place] [id number] Feb, [facility] [place] [facility] [address] [id number] [place] [address] Feb, [facility] [place] [address] [id number] [place] [address] Feb, [facility] [place] [facility] [address] [id number] [place] [address] Feb, [facility] [place] [facility] [address] [facility] [id number] [place] [address] January, [facility] [place] [facility] [address] [id number] [place] [address] January, [facility] [place] [address] [id number] [place] [address] January, [facility] [address] [id number] [place] [address] January, [facility] [address] [id number] [place] [address] Dec, [facility] [address] [id number] [place] [address] Dec, [facility] [address] [id number] [place] [address] Dec, [facility] [address] [id number] [place] [address] Nov, [facility] [address] [id number] [place] [address] Nov, [facility] [place] [address] [facility] [address] [id number] [place] [id number] Nov, [facility] [address] [id number] [place] [address] Nov, [facility] [address] [id number] [place] [address] May, [facility] [place] [address] [id number] [place] [id number] May, [facility] [address] [id number] [place] [address] May, [facility] [place] [facility] [address] [id number] [place] [address] May, [facility] [place] [facility] [address] [id number] [place] [address] January, [facility] [place] [facility] [address] [id number] [place] [address] Nov, [facility] [address] [address] Jul, [facility] [address] [address] Jul, [facility] [address] [address] Jun, [facility] [address] [address] Jun, [facility] [address] [address] January, [facility] [id number] [place] [address]- [address] January, [facility] [address] [address] January, [facility] [address] [address] Dec, [facility] [address] [address] Oct, [facility] [address] [address] Oct, [facility] [address] [address] Oct, [facility] [address] [id number] [address] Oct, [facility] [address] [id number] [address] Sep, [facility] [address] [id number] [id number] Sep, IMMUNIZATIONS Vaccine Route Administration Date Status FLUARIX QUAD (3 AND UP) 2017 IM Intramuscular Jun 17, 2017 Administered SOCIAL HISTORY Never Assessed REASON FOR VISIT smoking cessation f/u-KGoodridge, RN, would like to review labs from April PLAN OF CARE Activity Details Follow Up 3 Months Reason:lipid profile VITAL SIGNS Height 72 in 2017-06-17 Weight 145.2 lbs 2017-06-17 Temperature 98.5 degrees Fahrenheit 2017-06-17 Heart Rate 98 bpm 2017-06-17 Respiratory Rate 14 2017-06-17 BMI 19.69 kg/m2 2017-06-17 Blood pressure systolic 110 mmHg 2017-06-17 Blood pressure diastolic 76 mmHg 2017-06-17 MEDICATIONS Medication Instructions Dosage Frequency Start Date End Date Duration Status Breo Ellipta 100-25 mcg/dose 1 Inhalant 1 time per day Jul, Active Gabapentin 100 mg 2 Capsule 2 times per day Dec, Active Diazepam 10 mg take 1 tablet by Oral route 1 time per day PRN Jul, Active Cardizem CD 120 mg take 1 capsule (120 mg) by oral route once daily Jun, Active Seroquel XR 200 mg 1 tablet by Oral route 1 time per day for 30 day(s) Sep, Active Atorvastatin Calcium 10 mg Orally Once a day 1 tablet 24h May, 30 day(s) Active Chantix Starting Month Josh 0.5 MG X 11 & 1 MG X 42 as directed Mar, Active sertraline 100 mg take 2 tablets (200 mg) by oral route once daily January, Active Digoxin 250 MCG 1 tablet by Oral route 1 time per day further refills per cardiology May, Active Chantix 1 MG Orally Twice a day 1 tablet 12h Apr, Sep, 30 day(s) Active RESULTS No Results PROCEDURES Procedure Date Ordered Result Body Site FLUARIX QUAD (3 & UP)-GSK-2015 Jun 17, 2017 SINGLE IMMUNIZATION ADMIN Jun 17, 2017 INSTRUCTIONS MEDICATIONS ADMINISTERED No Known Medications [...]
--- OUTSIDE RECORDS SUMMARY | 2018-12-18 09:48 | XMS REPORT | Clinical Summary ---
Author Author Admin, PAY[place] Organization [facility] Address Unknown Phone Allergies, Adverse Reactions, Alerts Allergy Name Reaction Description Start Date Severity Status Provider ANNIE UNABLE TO REMEMBER ANYTHING WHEN TAKING Moderate Active Arturo Ramirez MD Conditions or Problems Problem Name Problem Code Onset Date Status Entry Date Provider Comment Standard Description Annotate FH DEPRESSION V17.0 Active Arturo Ramirez MD Family history of psychiatric condition FH SEIZURES V17.2 Active Arturo Ramirez MD Family history of other neurological diseases STROKE V17.1 Active Arturo Ramirez MD Family history of stroke (cerebrovascular) DEPRESSION 311 Active Arturo Ramirez MD Depressive disorder, not elsewhere classified SEIZURE 780.39 Active Arturo Ramirez MD Other convulsions MARFAN'S SYNDROME 759.82 Active Arturo Ramirez MD Marfan syndrome SUPRAVENTRICULAR TACHYCARDIA 427.89 Active Arturo Ramirez MD Other specified cardiac dysrhythmias SINUSITIS 473.9 Active Arturo Ramirez MD Unspecified sinusitis (chronic) COPD, MILD 496 Active Arturo Ramirez MD Chronic airway obstruction, not elsewhere classified PERIPHERAL NEUROPATHY 356.9 Active Arturo Ramirez MD Unspecified idiopathic peripheral neuropathy ALCOHOL ABUSE 305.00 Active Kang MARINO Alcohol abuse, unspecified drinking behavior Medication List Medication Instructions Start Date Stop Date Generic Name ND Status Provider Patient Instruction PROAIR HFA 108 (90 BASE) MCG/ACT AERS 2 puffs four times a day as needed 2013 ALBUTEROL SULFATE 24944475585 Active Arturo Ramirez MD Active CAMPRAL 333 MG TBEC Take one (1) tablet by mouth three times a day ACAMPROSATE CALCIUM 16744128757 Active Kang MARINO Active FLUTICASONE PROPIONATE 50 MCG/ACT SUSP 1 to 2 sprays each nostril qDay FLUTICASONE PROPIONATE 50588310670 Active Kang MARINO Active PROAIR HFA 108 (90 BASE) MCG/ACT AERS 2 puffs four times a day as needed 2011 ALBUTEROL SULFATE 12857806984 No Longer Active Kang MARINO Active FOLIC ACID 1 MG TABS Take one by mouth daily FOLIC ACID 11679283967 No Longer Active Arturo Ramirez MD Active DILT-XR 120 MG MB39M-AHY 1 CAP PO DAILY DILTIAZEM HCL 92955327983 Active Arturo Ramirez MD Active GABAPENTIN 100 MG CAPS 1 tab po BID GABAPENTIN 17976010719 Active Arturo Ramirez MD Active FLUTICASONE PROPIONATE 50 MCG/ACT SUSP INHALE 1 PUFF IN EACH NOSTRIL QD PRN FLUTICASONE PROPIONATE 86429000448 No Longer Active Arturo Ramirez MD Active PREDNISONE 20 MG TAB 2 tabs daily for 3 days, 1 tab daily for 3 days, 1/2 tab daily for 2 days PREDNISONE 61192097159 No Longer Active Arturo Ramirez MD Active BACTRIM DS 800-160 MG TAB 1 tab by mouth twice daily TRIMETHOPRIM-SULFAMETHOXAZOLE 55445501192 No Longer Active Arturo Ramirez MD Active AMOXICILLIN 500 MG CAP 1 tab by mouth 3 times daily AMOXICILLIN 34170973749 No Longer Active Arturo Ramirez MD Active SERTRALINE HCL 100 MG TABS 2 TAB PO DAILY SERTRALINE HCL 74082526831 Active Mariana Bella LPN Active LAMICTAL 100 MG TABS TAKE ONE-HALF TABLET PO QD LAMOTRIGINE 50101618891 No Longer Active Arturo Ramirez MD Active AMITRIPTYLINE HCL 50 MG TAB take 1 tab po qhs AMITRIPTYLINE HCL 25305190292 Active Farrah Adam RN Active DIGOXIN 0.25 MG TABS Take one by mouth daily DIGOXIN 99763413984 Active Arturo Ramirez MD Active B-100 COMPLEX TABS Take one by mouth daily VITAMINS-LIPOTROPICS 80008618204 Active Arturo Ramirez MD Active ADULT ASPIRIN LOW STRENGTH 81 MG TBDP Take one by mouth daily ASPIRIN 97046358105 Active Arturo Ramirez MD Active MAGNESIUM CAPS 1 TABLET PO QD MAGNESIUM OXIDE CAPS 92361779394 Active Arturo Ramirez MD Active EQL IBUPROFEN 200 MG TABS THREE TABLETS PO QD PRN IBUPROFEN 10217519627 Active Arturo Ramirez MD Active LAMICTAL 100 MG TABS TAKE ONE-HALF TABLET PO QD LAMICTAL 100 MG TABS 893097 LAMOTRIGINE Inactive FLUTICASONE PROPIONATE 50 MCG/ACT SUSP INHALE 1 PUFF IN EACH NOSTRIL QD PRN FLUTICASONE PROPIONATE 50 MCG/ACT SUSP 649019 FLUTICASONE PROPIONATE Inactive FOLIC ACID 1 MG TABS Take one by mouth daily FOLIC ACID 1 MG TABS 217816 FOLIC ACID Inactive PROAIR HFA 108 (90 BASE) MCG/ACT AERS 2 puffs four times a day as needed 2011 PROAIR HFA 108 (90 BASE) MCG/ACT AERS ALBUTEROL SULFATE Inactive AMOXICILLIN 500 MG CAP 1 tab by mouth 3 times daily AMOXICILLIN 500 MG CAP 760314 AMOXICILLIN Inactive BACTRIM DS 800-160 MG TAB 1 tab by mouth twice daily BACTRIM DS 800-160 MG TAB TRIMETHOPRIM-SULFAMETHOXAZOLE Inactive PREDNISONE 20 MG TAB 2 tabs daily for 3 days, 1 tab daily for 3 days, 1/2 tab daily for 2 days PREDNISONE 20 MG TAB 597891 PREDNISONE Inactive Immunizations Vaccine Administration Date Value Standard Description Seasonal influenza vaccine, injectable, containing preservative, for > 3 years old (Afluria, FluLaval, Fluzone, Fluvirin, Fluarix, Agriflu(>=18 yo)) Fluzone (>3 yrs.) [[id number]] Influenza, seasonal, injectable Seasonal influenza vaccine, injectable, containing preservative, for > 3 years old (Afluria, FluLaval, Fluzone, Fluvirin, Fluarix, Agriflu(>=18 yo)) Fluzone (>3 yrs.) [[id number]] Influenza, seasonal, injectable Vital Signs Date Name Value Unit Range Description blood pressure, diastolic - 8462-4 74 mm[Hg] BP rod blood pressure, systolic - 8480-6 118 mm[Hg] BP sys height E&M - 8302-2 73 [in_us] Bdy height pulse rate E&M - 8867-4 99 /min Heart rate temperature E&M 98.3 [degF] Body temperature weight E&M - 3141-9 123 [lb_av] Weight Measured blood pressure, diastolic - 8462-4 95 mm[Hg] BP rod blood pressure, systolic - 8480-6 154 mm[Hg] BP sys height E&M - 8302-2 73 [in_us] Bdy height pulse rate E&M - 8867-4 114 /min Heart rate temperature E&M 98.2 [degF] Body temperature weight E&M - 3141-9 120 [lb_av] Weight Measured Encounters Code Encounter Date Provider Facility CPT-17564 Level 3 Est. Patient 15:07:36 CDT Arturo Ramirez MD [facility] CPT-37321 Level 3 Est. Patient 10:31:30 CDT Kang MARINO [facility] CPT-50064 Level 3 Est. Patient 13:54:07 INVESTIGATIONS MANAGER Arturo Ramirez MD [facility] CPT-25533 Level 4 Est. Patient 13:29:47 CDT Arturo Ramirez MD [facility] CPT-06600 Level 4 Est. Patient 11:50:49 CDT Arturo Ramirez MD [facility] CPT-99793 Level 3 Est. Patient 15:19:06 CDT Arturo Ramirez MD [facility] CPT-52491 Level 3 Est. Patient 17:12:26 CDT Arturo Ramirez MD [facility] CPT-87947 Level 3 Est. Patient 19:26:26 CDT Arturo Ramirez MD [facility] CPT-01791 Level 3 New Patient 21:05:00 CDT Arturo Ramirez MD [facility] Procedures Code Procedure Name Date Entry Date Standard Description CPT-66207 Administration single or combination vaccine inc oral 11 :47:00 INVESTIGATIONS MANAGER CPT-69088 Influenza split virus > age 3 11:47:00 INVESTIGATIONS MANAGER CPT-97264 Administration single or combination vaccine inc oral 10 :09:51 CDT CPT-00777 Influenza split virus > age 3 10:09:51 CDT
--- OUTSIDE RECORDS SUMMARY | 2018-12-18 09:48 | XMS REPORT | Clinical Summary ---
Author Author Admin, PAYTON Organization [facility] Address Unknown Phone Allergies, Adverse Reactions, Alerts [...] a day as needed 2013 ALBUTEROL SULFATE 42229100383 Active Arturo Ramirez MD Active CAMPRAL 333 MG TBEC Take one (1) tablet by mouth three times a day ACAMPROSATE CALCIUM 26010389476 Active Kang MARINO Active FLUTICASONE PROPIONATE 50 MCG/ACT SUSP 1 to 2 sprays each nostril qDay FLUTICASONE PROPIONATE 24070629270 Active Kagn MARINO Active PROAIR HFA 108 (90 BASE) MCG/ACT AERS 2 puffs four times a day as needed 2011 ALBUTEROL SULFATE 50507947550 No Longer Active Kang MARINO Active FOLIC ACID 1 MG TABS Take one by mouth daily FOLIC ACID 27962545161 No Longer Active Arturo Ramirez MD Active DILT-XR 120 MG [id number] 1 CAP PO DAILY DILTIAZEM HCL 18791504479 Active Arturo Ramirez MD Active GABAPENTIN 100 MG CAPS 1 tab po BID GABAPENTIN 29989666479 Active Arturo Ramirez MD Active FLUTICASONE PROPIONATE 50 MCG/ACT SUSP INHALE 1 PUFF IN EACH NOSTRIL QD PRN FLUTICASONE PROPIONATE 02491361960 No Longer Active Arturo Ramirez MD Active PREDNISONE 20 MG TAB 2 tabs daily for 3 days, 1 tab daily for 3 days, 1/2 tab daily for 2 days PREDNISONE 97383174750 No Longer Active Arturo Ramirez MD Active BACTRIM DS 800-160 MG TAB 1 tab by mouth twice daily TRIMETHOPRIM-SULFAMETHOXAZOLE 83150267016 No Longer Active Arturo Ramirez MD Active AMOXICILLIN 500 MG CAP 1 tab by mouth 3 times daily AMOXICILLIN 93984066536 No Longer Active Arturo Ramirez MD Active SERTRALINE HCL 100 MG TABS 2 TAB PO DAILY SERTRALINE HCL 96285839212 Active Mariana Bella LPN Active LAMICTAL 100 MG TABS TAKE ONE-HALF TABLET PO QD LAMOTRIGINE 36534716897 No Longer Active Arturo Ramirez MD Active AMITRIPTYLINE HCL 50 MG TAB take 1 tab po qhs AMITRIPTYLINE HCL 16146655570 Active Farrah Adam RN Active DIGOXIN 0.25 MG TABS Take one by mouth daily DIGOXIN 14670853857 Active Arturo Ramirez MD Active B-100 COMPLEX TABS Take one by mouth daily VITAMINS-LIPOTROPICS 52420130860 Active Arturo Ramirez MD Active ADULT ASPIRIN LOW STRENGTH 81 MG TBDP Take one by mouth daily ASPIRIN 06844032172 Active Arturo Ramirez MD Active MAGNESIUM CAPS 1 TABLET PO QD MAGNESIUM OXIDE CAPS 82412659864 Active Arturo Ramirez MD Active EQL IBUPROFEN 200 MG TABS THREE TABLETS PO QD PRN IBUPROFEN 37936884301 Active Arturo Ramirez MD Active LAMICTAL 100 MG TABS TAKE ONE-HALF TABLET PO QD LAMICTAL 100 MG TABS 260315 LAMOTRIGINE Inactive FLUTICASONE PROPIONATE 50 MCG/ACT SUSP INHALE 1 PUFF IN EACH NOSTRIL QD PRN FLUTICASONE PROPIONATE 50 MCG/ACT SUSP 369054 FLUTICASONE PROPIONATE Inactive FOLIC ACID 1 MG TABS Take one by mouth daily FOLIC ACID 1 MG TABS 373409 FOLIC ACID Inactive PROAIR HFA 108 (90 BASE) MCG/ACT AERS 2 puffs four times a day as needed 2011 PROAIR HFA 108 (90 BASE) MCG/ACT AERS ALBUTEROL SULFATE Inactive AMOXICILLIN 500 MG CAP 1 tab by mouth 3 times daily AMOXICILLIN 500 MG CAP 293832 AMOXICILLIN Inactive BACTRIM DS 800-160 MG TAB 1 tab by mouth twice daily BACTRIM DS 800-160 MG TAB TRIMETHOPRIM-SULFAMETHOXAZOLE Inactive PREDNISONE 20 MG TAB 2 tabs daily for 3 days, 1 tab daily for 3 days, 1/2 tab daily for 2 days PREDNISONE 20 MG TAB 432059 PREDNISONE Inactive Immunizations Vaccine Administration Date Value Standard Description Seasonal influenza vaccine, injectable, containing preservative, for > 3 years old (Afluria, FluLaval, Fluzone, Fluvirin, Fluarix, Agriflu(>=18 yo)) Fluzone (>3 yrs.) [[id number]] Influenza, seasonal, injectable Seasonal influenza vaccine, injectable, containing preservative, for > 3 years old (Afluria, FluLaval, Fluzone, Fluvirin, Fluarix, Agriflu(>=18 yo)) Fluzone (>3 yrs.) [[id number]] Influenza, seasonal, injectable Vital Signs Date Name [...] Measured Encounters Code Encounter Date Provider Facility CPT-40329 Level 3 Est. Patient 15:07:36 CDT [facility] CPT-19230 Level 3 Est. Patient 10:31:30 CDT Kang MARINO [facility] CPT-91926 Level 3 Est. 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 Patient 13:29:47 CDT Arturo Ramirez MD [facility] CPT-01298 Level 4 Est. Patient 11:50:49 CDT Arturo Ramirez MD [facility] CPT-37905 Level 3 Est. Patient 15:19:06 CDT Arturo Ramirez MD [facility] CPT-56763 Level 3 Est. Patient 17:12:26 CDT Arturo Ramirez MD [facility] CPT-36121 Level 3 Est. Patient 19:26:26 CDT Arturo Ramirez MD [facility] CPT-43260 Level 3 New Patient 21:05:00 CDT Arturo Ramirez MD [facility] Procedures Code Procedure Name Date Entry Date Standard Description CPT-45206 Administration single or combination vaccine inc oral 11 :47:00 ACCOUNT PROCESSOR CPT-14329 Influenza split virus > age 3 11:47:00 ACCOUNT PROCESSOR CPT-23904 Administration single or combination vaccine inc oral 10 :09:51 CDT CPT-48179 Influenza split virus > age 3 10:09:51 CDT
--- OUTSIDE RECORDS SUMMARY | 2018-12-18 09:48 | XMS REPORT | Clinical Summary ---
Author Author Admin, PAYTON Organization [facility] Address Unknown Phone Allergies, Adverse Reactions, [...] a day as needed 2013 ALBUTEROL SULFATE 76060443428 Active Arturo Ramirez MD Active CAMPRAL 333 MG TBEC Take one (1) tablet by mouth three times a day ACAMPROSATE CALCIUM 30489293299 Active Kang MARINO Active FLUTICASONE PROPIONATE 50 MCG/ACT SUSP 1 to 2 sprays each nostril qDay FLUTICASONE PROPIONATE 84070894516 Active Kang MARINO Active PROAIR HFA 108 (90 BASE) MCG/ACT AERS 2 puffs four times a day as needed 2011 ALBUTEROL SULFATE 42780729245 No Longer Active Kang MARINO Active FOLIC ACID 1 MG TABS Take one by mouth daily FOLIC ACID 19724982780 No Longer Active Arturo Ramirez MD Active DILT-XR 120 MG [id number] 1 CAP PO DAILY DILTIAZEM HCL 21859838710 Active Arturo Ramirez MD Active GABAPENTIN 100 MG CAPS 1 tab po BID GABAPENTIN 84305974956 Active Arturo Ramirez MD Active FLUTICASONE PROPIONATE 50 MCG/ACT SUSP INHALE 1 PUFF IN EACH NOSTRIL QD PRN FLUTICASONE PROPIONATE 79455440677 No Longer Active Arturo Ramirez MD Active PREDNISONE 20 MG TAB 2 tabs daily for 3 days, 1 tab daily for 3 days, 1/2 tab daily for 2 days PREDNISONE 83316665581 No Longer Active Arturo Ramirez MD Active BACTRIM DS 800-160 MG TAB 1 tab by mouth twice daily TRIMETHOPRIM-SULFAMETHOXAZOLE 55052727863 No Longer Active Arturo Ramirez MD Active AMOXICILLIN 500 MG CAP 1 tab by mouth 3 times daily AMOXICILLIN 20435773984 No Longer Active Arturo Ramirez MD Active SERTRALINE HCL 100 MG TABS 2 TAB PO DAILY SERTRALINE HCL 83964889345 Active Mariana Bella LPN Active LAMICTAL 100 MG TABS TAKE ONE-HALF TABLET PO QD LAMOTRIGINE 32657329278 No Longer Active Arturo Ramirez MD Active AMITRIPTYLINE HCL 50 MG TAB take 1 tab po qhs AMITRIPTYLINE HCL 36267428153 Active Farrah Adam RN Active DIGOXIN 0.25 MG TABS Take one by mouth daily DIGOXIN 70337901557 Active Arturo Ramirez MD Active B-100 COMPLEX TABS Take one by mouth daily VITAMINS-LIPOTROPICS 93276871335 Active Arturo Ramirez MD Active ADULT ASPIRIN LOW STRENGTH 81 MG TBDP Take one by mouth daily ASPIRIN 72796931386 Active Arturo Ramirez MD Active MAGNESIUM CAPS 1 TABLET PO QD MAGNESIUM OXIDE CAPS 65742163804 Active Arturo Ramirez MD Active EQL IBUPROFEN 200 MG TABS THREE TABLETS PO QD PRN IBUPROFEN 23584514883 Active Arturo Ramirez MD Active LAMICTAL 100 MG TABS TAKE ONE-HALF TABLET PO QD LAMICTAL 100 MG TABS 633797 LAMOTRIGINE Inactive FLUTICASONE PROPIONATE 50 MCG/ACT SUSP INHALE 1 PUFF IN EACH NOSTRIL QD PRN FLUTICASONE PROPIONATE 50 MCG/ACT SUSP 078437 FLUTICASONE PROPIONATE Inactive FOLIC ACID 1 MG TABS Take one by mouth daily FOLIC ACID 1 MG TABS 513097 FOLIC ACID Inactive PROAIR HFA 108 (90 BASE) MCG/ACT AERS 2 puffs four times a day as needed 2011 PROAIR HFA 108 (90 BASE) MCG/ACT AERS ALBUTEROL SULFATE Inactive AMOXICILLIN 500 MG CAP 1 tab by mouth 3 times daily AMOXICILLIN 500 MG CAP 838130 AMOXICILLIN Inactive BACTRIM DS 800-160 MG TAB 1 tab by mouth twice daily BACTRIM DS 800-160 MG TAB TRIMETHOPRIM-SULFAMETHOXAZOLE Inactive PREDNISONE 20 MG TAB 2 tabs daily for 3 days, 1 tab daily for 3 days, 1/2 tab daily for 2 days PREDNISONE 20 MG TAB 564523 PREDNISONE Inactive Immunizations Vaccine Administration Date Value Standard Description Seasonal influenza vaccine, injectable, containing preservative, for > 3 years old (Afluria, FluLaval, Fluzone, Fluvirin, Fluarix, Agriflu(>=18 yo)) Fluzone (>3 yrs.) [[id number]] Influenza, seasonal, injectable Seasonal influenza vaccine, injectable, containing preservative, for > 3 years old (Afluria, FluLaval, Fluzone, Fluvirin, Fluarix, Agriflu(>=18 yo)) Fluzone (>3 yrs.) [[id number]] Influenza, seasonal, injectable Vital Signs Date Name [...] Measured Encounters Code Encounter Date Provider Facility CPT-68365 Level 3 Est. Patient 15:07:36 CDT Arturo Ramirez MD [facility] CPT-63724 Level 3 Est. Patient 10:31:30 CDT Kang MARINO [facility] CPT-84245 Level 3 Est. 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 Patient 13:29:47 CDT Arturo Ramirez MD [facility] CPT-75477 Level 4 Est. Patient 11:50:49 CDT Arturo Ramirez MD [facility] CPT-19587 Level 3 Est. Patient 15:19:06 CDT Arturo Ramirez MD [facility] CPT-98185 Level 3 Est. Patient 17:12:26 CDT Arturo Ramirez MD [facility] CPT-26931 Level 3 Est. Patient 19:26:26 CDT Arturo Ramirez MD [facility] CPT-99961 Level 3 New Patient 21:05:00 CDT Arturo Ramirez MD [facility] Procedures Code Procedure Name Date Entry Date Standard Description CPT-25456 Administration single or combination vaccine inc oral 11 :47:00 PORT CRANE OPERATOR CPT-04165 Influenza split virus > age 3 11:47:00 PORT CRANE OPERATOR CPT-83765 Administration single or combination vaccine inc oral 10 :09:51 CDT CPT-25747 Influenza split virus > age 3 10:09:51 CDT
--- OUTSIDE RECORDS SUMMARY | 2018-12-18 09:48 | XMS REPORT ---
Author Author DI ELDRIDGE [facility] eClinicalWorks Address Unknown Phone Unavailable Care Team Providers Care Forester Aide Name Role Phone DI ELDRIDGE Unavailable Allergies [...] Coding System Code Date THERAPEUTIC EXERCISES CPT-4 31651 Jul 25, 2016 Results No Known Results Summary Purpose eClinicalWorks Submission
--- OUTSIDE RECORDS SUMMARY | 2018-12-18 09:49 | XMS REPORT | Continuity of Care Document ---
Author Author [facility] Organization [facility] Address Unknown Phone Unavailable Allergies Active Description Code Type Severity Reaction Onset Reported/Identified Relationship to Patient Clinical Status Yes NKA Drug N/A N/A Yes No Known Drug Allergies [id number] Drug Allergy Unknown N/A 12/17/2011 Yes Abilify Drug Allergy N/A N/A 06/11/2013 Yes ARIPIPRAZOLE 3310 DRUG INGREDI Med Other 12/31/2013 Yes BUPROPION 6280 DRUG INGREDI High Other 12/31/2013 Yes TRAZODONE 5938 DRUG INGREDI Med Swelling 12/31/2013 Medications There is no data. Problems Date Dx Coded Attending Type Code Diagnosis Diagnosed By 01/24/2009 D 305.00 ALCOHOL ABUSE -UNSPEC 01/24/2009 D 723.1 CERVICALGIA 01/24/2009 D 784.0 HEADACHE 01/24/2009 D 959.09 INJURY OF FACE AND NECK 01/24/2009 D E849.0 ACCIDENT IN HOME 01/24/2009 D E888.9 FALL NOS 01/24/2009 D E980.4 UNDET POIS- MED AGNT NEC 01/24/2009 D 305.00 ALCOHOL ABUSE -UNSPEC 01/24/2009 D 305.90 DRUG ABUSE NEC-UNSPEC 01/24/2009 D 724.5 BACKACHE NOS 01/24/2009 D 959.19 OTHER INJURY OF OTHER SI 01/24/2009 D 977.9 POISON- MEDICINAL AGT NOS 01/24/2009 D E849.0 ACCIDENT IN HOME 01/24/2009 D E888.9 FALL NOS 01/24/2009 D E958.8 SUICIDE/SELF- INJURY NEC 10/18/2011 JOSE WAKEFIELD DO 427.89 OTHER SPECIFIED CARDIAC DYSRHYTHMIAS 10/18/2011 JOSE WAKEFIELD DO 477.9 ALLERGIC RHINITIS CAUSE UNSPECIFIED 10/18/2011 JOSE WAKEFIELD DO 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 10/18/2011 427.89 OTHER SPECIFIED CARDIAC DYSRHYTHMIAS 10/18/2011 477.9 ALLERGIC RHINITIS CAUSE UNSPECIFIED 10/18/2011 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 10/18/2011 WAKEFIELD DO, JOSE K 427.89 OTHER SPECIFIED CARDIAC DYSRHYTHMIAS 10/18/2011 WAKEFIELD DO, JOSE K 477.9 ALLERGIC RHINITIS CAUSE UNSPECIFIED 10/18/2011 WAKEFIELD DO, JOSE K 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 10/18/2011 ONEAL DDS, JANNIE G 427.89 OTHER SPECIFIED CARDIAC DYSRHYTHMIAS 10/18/2011 ONEAL DDS, JANNIE G 477.9 ALLERGIC RHINITIS CAUSE UNSPECIFIED 10/18/2011 ONEAL DDS, JANNIE G 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 10/18/2011 ELKINS DDS, SHANT 427.89 OTHER SPECIFIED CARDIAC DYSRHYTHMIAS 10/18/2011 ELKINS DDS, SHANT 477.9 ALLERGIC RHINITIS CAUSE UNSPECIFIED 10/18/2011 ELKINS DDS, SHANT 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 10/18/2011 VICTORIANO BOSWELL MD 427.89 OTHER SPECIFIED CARDIAC DYSRHYTHMIAS 10/18/2011 VICTORIANO BOSWELL MD 477.9 ALLERGIC RHINITIS CAUSE UNSPECIFIED 10/18/2011 VICTORIANO BOSWELL MD 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 10/18/2011 VICTORIANO BOSWELL MD 427.89 OTHER SPECIFIED CARDIAC DYSRHYTHMIAS 10/18/2011 VICTORIANO BOSWELL MD 477.9 ALLERGIC RHINITIS CAUSE UNSPECIFIED 10/18/2011 VICTORIANO BOSWELL MD 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 10/18/2011 VICTORIANO BOSWELL MD 427.89 OTHER SPECIFIED CARDIAC DYSRHYTHMIAS 10/18/2011 VICTORIANO BOSWELL MD 477.9 ALLERGIC RHINITIS CAUSE UNSPECIFIED 10/18/2011 VICTORIANO BOSWELL MD 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 10/18/2011 VICTORIANO BOSWELL MD 427.89 OTHER SPECIFIED CARDIAC DYSRHYTHMIAS 10/18/2011 VICTORIANO BOSWELL MD 477.9 ALLERGIC RHINITIS CAUSE UNSPECIFIED 10/18/2011 VICTORIANO BOSWELL MD 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 10/18/2011 VICTORIANO BOSWELL MD 427.89 OTHER SPECIFIED CARDIAC DYSRHYTHMIAS 10/18/2011 VICTORIANO BOSWELL MD 477.9 ALLERGIC RHINITIS CAUSE UNSPECIFIED 10/18/2011 VICTORIANO BOSWELL MD 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 10/18/2011 VICTORIANO BOSWELL MD 427.89 OTHER SPECIFIED CARDIAC DYSRHYTHMIAS 10/18/2011 VICTORIANO BOSWELL MD 477.9 ALLERGIC RHINITIS CAUSE UNSPECIFIED 10/18/2011 VICTORIANO BOSWELL MD 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 10/18/2011 427.89 OTHER SPECIFIED CARDIAC DYSRHYTHMIAS 10/18/2011 477.9 ALLERGIC RHINITIS CAUSE UNSPECIFIED 10/18/2011 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 12/17/2011 Ot 303.93 ALCOH DEP NEC/NOS-REMISS 12/17/2011 Ot 305.1 TOBACCO USE DISORDER 12/17/2011 Ot 311 DEPRESSIVE DISORDER NEC 12/17/2011 Ot 397.0 TRICUSPID VALVE DISEASE 12/17/2011 Ot 424.0 MITRAL VALVE DISORDER 12/17/2011 Ot 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 12/17/2011 Ot V58.69 OTH MED,LT, CURRENT USE 02/14/2012 Ot 397.0 TRICUSPID VALVE DISEASE 02/14/2012 Ot 424.0 MITRAL VALVE DISORDER 02/14/2012 Ot 427.89 CARDIAC DYSRHYTHMIAS NEC 02/14/2012 Ot 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 07/09/2012 JOSE WAKEFIELD DO K 785.1 PALPITATIONS 07/09/2012 785.1 PALPITATIONS 07/09/2012 WAKEFIELD JOSE CALHOUN K 785.1 PALPITATIONS 07/09/2012 ONEAL DDSJANNIE 785.1 PALPITATIONS 07/09/2012 SHANT ELKINS DDS 785.1 PALPITATIONS 07/09/2012 VICTORIANO BOSWELL MD 785.1 PALPITATIONS 07/09/2012 VICTORIANO BOSWELL MD 785.1 PALPITATIONS 07/09/2012 VICTORIANO BOSWELL MD 785.1 PALPITATIONS 07/09/2012 VICTORIANO BOSWELL MD 785.1 PALPITATIONS 07/09/2012 VICTORIANO BOSWELL MD 785.1 PALPITATIONS 07/09/2012 VICTORIANO BOSWELL MD 785.1 PALPITATIONS 07/09/2012 785.1 PALPITATIONS 2012 Ot 785.0 TACHYCARDIA NOS 2012 Ot 785.1 PALPITATIONS 01/29/2013 WAKEFIELD DO, JOSE K V76.51 COLON CANCER SCREENING 01/29/2013 V76.51 COLON CANCER SCREENING 01/29/2013 WAKEFIELD DO, JOSE K V76.51 COLON CANCER SCREENING 01/29/2013 JANNIE NO DDS V76.51 COLON CANCER SCREENING 01/29/2013 BRITTNI ESCALANTES, SHANT V76.51 COLON CANCER SCREENING 01/29/2013 ANDREIA SANTOS, VICTORIANO Gupta V76.51 COLON CANCER SCREENING 01/29/2013 ANDREIA SANTOS, VICTORIANO Gupta V76.51 COLON CANCER SCREENING 01/29/2013 ANDREIA SANTOS, VICTORIANO Gupta V76.51 COLON CANCER SCREENING 01/29/2013 ANDREIA SANTOS, VICTORIANO Gupta V76.51 COLON CANCER SCREENING 01/29/2013 ANDREIA SANTOS, VICTORIANO Gupta V76.51 COLON CANCER SCREENING 01/29/2013 VICTORIANO BOSWELL MD V76.51 COLON CANCER SCREENING 06/11/2013 785.0 TACHYCARDIA 06/11/2013 WAKEFIELD DO, JOSE K 785.0 TACHYCARDIA 06/11/2013 ONEAL KAHN, JANNIE Trejo 785.0 TACHYCARDIA 06/11/2013 BRITTNI KAHN, SHANT 785.0 TACHYCARDIA 06/11/2013 ANDREIA SANTOS, VICTORIANO Gupta 785.0 TACHYCARDIA 06/11/2013 ANDREIA SANTOS, VICTORIANO Gupta 785.0 TACHYCARDIA 06/11/2013 ANDREIA SANTOS, VICTORIANO Gupta 785.0 TACHYCARDIA 06/11/2013 ANDREIA SANTOS, VICTORIANO Gupta 785.0 TACHYCARDIA 06/11/2013 ANDREIA SANTOS, VICTORIANO Gupta 785.0 TACHYCARDIA 06/11/2013 ANDREIA SANTOS, VICTORIANO Gupta 785.0 TACHYCARDIA 06/17/2013 WAKEFIELD DO, JOSE K 305.1 TOBACCO ABUSE 06/17/2013 WAKEFIELD DO, JOSE K 345.90 SEIZURE DISORDER 06/17/2013 WAKEFIELD DO, JOSE K 427.0 PAROXYSMAL SUPRAVENTRICULAR TACHYCARDIA 06/17/2013 WAKEFIELD DO, JOSE K 438.9 CVA LATE EFFECTS 06/17/2013 WAKEFIELD DO, JOSE K 496 COPD 06/17/2013 WAKEFIELD DO, JOSE K 786.09 DYSPNEA 06/17/2013 WAKEFIELD DO, JOSE K 786.50 CHEST PAIN 06/17/2013 ONEAL DDS, JANNIE G 305.1 TOBACCO ABUSE 06/17/2013 ONEAL DDS, JANNIE G 345.90 SEIZURE DISORDER 06/17/2013 ONEAL DDS, JANNIE G 427.0 PAROXYSMAL SUPRAVENTRICULAR TACHYCARDIA 06/17/2013 ONEAL DDS, JANNIE G 438.9 CVA LATE EFFECTS 06/17/2013 ONEAL DDS, JANNIE G 496 COPD 06/17/2013 ONEAL DDS, JANNIE G 786.09 DYSPNEA 06/17/2013 ONEAL DDS, JANNIE G 786.50 CHEST PAIN 06/17/2013 ELKINS DDS, SHANT 305.1 TOBACCO ABUSE 06/17/2013 ELKINS DDS, SHANT 345.90 SEIZURE DISORDER 06/17/2013 ELKINS DDS, SHANT 427.0 PAROXYSMAL SUPRAVENTRICULAR TACHYCARDIA 06/17/2013 ELKINS DDS, SHANT 438.9 CVA LATE EFFECTS 06/17/2013 ELKINS DDS, SHANT 496 COPD 06/17/2013 ELKINS DDS, SHANT 786.09 DYSPNEA 06/17/2013 ELKINS DDS, SHANT 786.50 CHEST PAIN 06/17/2013 ANDREIA SANTOS, VICTORIANO Gupta 305.1 TOBACCO ABUSE 06/17/2013 ANDREIA SANTOS, VICTORIANO Gupta 345.90 SEIZURE DISORDER 06/17/2013 ANDREIA SANTOS, VICTORIANO Gupta 427.0 PAROXYSMAL SUPRAVENTRICULAR TACHYCARDIA 06/17/2013 VICTORIANO BOSWELL MD 438.9 CVA LATE EFFECTS 06/17/2013 VICTORIANO BOSWELL MD 496 COPD 06/17/2013 VICTORIANO BOSWELL MD 786.09 DYSPNEA 06/17/2013 VICTORIANO BOSWELL MD 786.50 CHEST PAIN 06/17/2013 ANDREIA SANTOS, VICTORIANO Gupta 305.1 TOBACCO ABUSE 06/17/2013 ANDREIA SANTOS, VICTORIANO Gupta 345.90 SEIZURE DISORDER 06/17/2013 VICTORIANO BOSWELL MD 427.0 PAROXYSMAL SUPRAVENTRICULAR TACHYCARDIA 06/17/2013 VICTORIANO BOSWELL MD 438.9 CVA LATE EFFECTS 06/17/2013 VICTORIANO BOSWELL MD 496 COPD 06/17/2013 VICTORIANO BOSWELL MD 786.09 DYSPNEA 06/17/2013 VICTORIANO BOSWELL MD 786.50 CHEST PAIN 06/17/2013 VICTORIANO BOSWELL MD 305.1 TOBACCO ABUSE 06/17/2013 VICTORIANO BOSWELL MD 345.90 SEIZURE DISORDER 06/17/2013 VICTORIANO BOSWELL MD 427.0 PAROXYSMAL SUPRAVENTRICULAR TACHYCARDIA 06/17/2013 VICTORIANO BOSWELL MD 438.9 CVA LATE EFFECTS 06/17/2013 VICTORIANO BOSWELL MD 496 COPD 06/17/2013 VICTORIANO BOSWELL MD 786.09 DYSPNEA 06/17/2013 VICTORIANO BOSWELL MD 786.50 CHEST PAIN 06/17/2013 VICTORIANO BOSWELL MD 305.1 TOBACCO ABUSE 06/17/2013 VICTORIANO BOSWELL MD 345.90 SEIZURE DISORDER 06/17/2013 VICTORIANO BOSWELL MD 427.0 PAROXYSMAL SUPRAVENTRICULAR TACHYCARDIA 06/17/2013 VICTORIANO BOSWELL MD 438.9 CVA LATE EFFECTS 06/17/2013 VICTORIANO BOSWELL MD 496 COPD 06/17/2013 VICTORIANO BOSWELL MD 786.09 DYSPNEA 06/17/2013 VICTORIANO BOSWELL MD 786.50 CHEST PAIN 06/17/2013 VICTORIANO BOSWELL MD 305.1 TOBACCO ABUSE 06/17/2013 VICTORIANO BOSWELL MD 345.90 SEIZURE DISORDER 06/17/2013 VICTORIANO BOSWELL MD 427.0 PAROXYSMAL SUPRAVENTRICULAR TACHYCARDIA 06/17/2013 VICTORIANO BOSWELL MD 438.9 CVA LATE EFFECTS 06/17/2013 VICTORIANO BOSWELL MD 496 COPD 06/17/2013 VICTORIANO BOSWELL MD 786.09 DYSPNEA 06/17/2013 VICTORIANO BOSWELL MD 786.50 CHEST PAIN 06/17/2013 VICTORIANO BOSWELL MD 305.1 TOBACCO ABUSE 06/17/2013 VICTORIANO BOSWELL MD 345.90 SEIZURE DISORDER 06/17/2013 VICTORIANO BOSWELL MD 427.0 PAROXYSMAL SUPRAVENTRICULAR TACHYCARDIA 06/17/2013 VICTORIANO BOSWELL MD 438.9 CVA LATE EFFECTS 06/17/2013 VICTORIANO BOSWELL MD 496 COPD 06/17/2013 VICTORIANO BOSWELL MD 786.09 DYSPNEA 06/17/2013 VICTORIANO BOSWELL MD 786.50 CHEST PAIN 12/01/2013 ONEAL KAHN, JANNIE Trejo 214.8 LIPOMA OF OTHER SPECIFIED SITES 12/01/2013 ONEAL ESCALANTES, JANNIE G 521.00 UNSPECIFIED DENTAL CARIES 12/01/2013 BRITTNI KAHN, SHANT 214.8 LIPOMA OF OTHER SPECIFIED SITES 12/01/2013 BRITTNI KAHN, SHANT 521.00 UNSPECIFIED DENTAL CARIES 12/01/2013 VICTORIANO BOSWELL MD 214.8 LIPOMA OF OTHER SPECIFIED SITES 12/01/2013 VICTORIANO BOSWELL MD 521.00 UNSPECIFIED DENTAL CARIES 12/01/2013 VICTORIANO BOSWELL MD 214.8 LIPOMA OF OTHER SPECIFIED SITES 12/01/2013 VICTORIANO BOSWELL MD 521.00 UNSPECIFIED DENTAL CARIES 12/01/2013 VICTORIANO BOSWELL MD 214.8 LIPOMA OF OTHER SPECIFIED SITES 12/01/2013 VICTORIANO BOSWELL MD 521.00 UNSPECIFIED DENTAL CARIES 12/01/2013 VICTORIANO BOSWELL MD 214.8 LIPOMA OF OTHER SPECIFIED SITES 12/01/2013 VICTORIANO BOSWELL MD 521.00 UNSPECIFIED DENTAL CARIES 12/01/2013 VICTORIANO BOSWELL MD 214.8 LIPOMA OF OTHER SPECIFIED SITES 12/01/2013 VICTORIANO BOSWELL MD 521.00 UNSPECIFIED DENTAL CARIES 12/01/2013 VICTORIANO BOSWELL MD 214.8 LIPOMA OF OTHER SPECIFIED SITES 12/01/2013 VICTORIANO BOSWELL MD 521.00 UNSPECIFIED DENTAL CARIES 12/04/2013 ONEAL KAHN, JANNIE G V72.2 DENTAL EXAMINATION 12/04/2013 SHANT ELKINS DDS V72.2 DENTAL EXAMINATION 12/04/2013 VICTORIANO BOSWELL MD V72.2 DENTAL EXAMINATION 12/04/2013 VICTORIANO BOSWELL MD V72.2 DENTAL EXAMINATION 12/04/2013 VICTORIANO BOSWELL MD V72.2 DENTAL EXAMINATION 12/04/2013 VICTORIANO BOSWELL MD V72.2 DENTAL EXAMINATION 12/04/2013 VICTORIANO BOSWELL MD V72.2 DENTAL EXAMINATION 12/04/2013 VICTORIANO BOSWELL MD V72.2 DENTAL EXAMINATION 01/13/2014 SHANT ELKINS DDS 250.01 DIABETES 1 CONTROLLED 01/13/2014 ELKINS DDS, SHANT 433.10 CAROTID 01/13/2014 ANDREIA SANTOS, VICTORIANO Gupta 250.01 DIABETES 1 CONTROLLED 01/13/2014 VICTORIANO BOSWELL MD 433.10 CAROTID 01/13/2014 VICTORIANO BOSWELL MD 250.01 DIABETES 1 CONTROLLED 01/13/2014 VICTORIANO BOSWELL MD 433.10 CAROTID 01/13/2014 VICTORIANO BOSWELL MD 250.01 DIABETES 1 CONTROLLED 01/13/2014 VICTORIANO BOSWELL MD 433.10 CAROTID 01/13/2014 VICTORIANO BOSWELL MD 250.01 DIABETES 1 CONTROLLED 01/13/2014 VICTORIANO OBSWELL MD 433.10 CAROTID 01/13/2014 ANDREIA SANTOS, VICTORIANO Gupta 250.01 DIABETES 1 CONTROLLED 01/13/2014 VICTORIANO BOSWELL MD 433.10 CAROTID 01/13/2014 VICTORIANO BOSWELL MD 250.01 DIABETES 1 CONTROLLED 01/13/2014 VICTORIANO BOSWELL MD 433.10 CAROTID 02/04/2014 VICTORIANO BOSWELL MD 682.6 CELLULITIS AND ABSCESS OF LEG EXCEPT FOOT 02/04/2014 VICTORIANO BOSWELL MD 919.4 INSECT BITE NONVENOMOUS OF OTHER MULTIPLE AND UNSPECIFIED SITES WITHOUT INFECTION 02/04/2014 VICTORIANO BOSWELL MD 682.6 CELLULITIS AND ABSCESS OF LEG EXCEPT FOOT 02/04/2014 VICTORIANO BOSWELL MD 919.4 INSECT BITE NONVENOMOUS OF OTHER MULTIPLE AND UNSPECIFIED SITES WITHOUT INFECTION 02/04/2014 VICTORIANO BOSWELL MD 682.6 CELLULITIS AND ABSCESS OF LEG EXCEPT FOOT 02/04/2014 VICTORIANO BOSWELL MD 919.4 INSECT BITE NONVENOMOUS OF OTHER MULTIPLE AND UNSPECIFIED SITES WITHOUT INFECTION 02/04/2014 VICTORIANO BOSWELL MD 682.6 CELLULITIS AND ABSCESS OF LEG EXCEPT FOOT 02/04/2014 VICTORIANO BOSWELL MD 919.4 INSECT BITE NONVENOMOUS OF OTHER MULTIPLE AND UNSPECIFIED SITES WITHOUT INFECTION 02/04/2014 VICTORIANO BOSWELL MD 682.6 CELLULITIS AND ABSCESS OF LEG EXCEPT FOOT 02/04/2014 VICTORIANO BOSWELL MD 919.4 INSECT BITE NONVENOMOUS OF OTHER MULTIPLE AND UNSPECIFIED SITES WITHOUT INFECTION 02/04/2014 VICTORIANO BOSWELL MD 682.6 CELLULITIS AND ABSCESS OF LEG EXCEPT FOOT 02/04/2014 VICTOIRANO BOSWELL MD 919.4 INSECT BITE NONVENOMOUS OF OTHER MULTIPLE AND UNSPECIFIED SITES WITHOUT INFECTION 03/08/2014 VICTORIANO BOSWELL MD 724.2 BACK PAIN, LOWER 03/08/2014 VICTORIANO BOSWELL MD 724.2 BACK PAIN, LOWER 03/08/2014 VICTORIANO BOSWELL MD 724.2 BACK PAIN, LOWER 03/08/2014 VICTORIANO BOSWELL MD 724.2 BACK PAIN, LOWER 08/13/2014 VICTORIANO BOSWELL MD V03.82 PPV23 (PNEUMOVAX) DX 08/13/2014 VICTORIANO BOSWELL MD V04.81 FLU SHOT 08/13/2014 VICTORIANO BOSWELL MD V03.82 PPV23 (PNEUMOVAX) DX 08/13/2014 VICTORIANO BOSWELL MD V04.81 FLU SHOT 08/13/2014 VICTORIANO BOSWELL MD V03.82 PPV23 (PNEUMOVAX) DX 08/13/2014 VICTORIANO BOSWELL MD V04.81 FLU SHOT 09/08/2014 VICTORIANO BOSWELL MD 729.5 PAIN IN LIMB 09/08/2014 VICTORIANO BOSWELL MD 729.5 PAIN IN LIMB 05/29/2017 Ot 397.0 TRICUSPID VALVE DISEASE 05/29/2017 Ot 424.0 MITRAL VALVE DISORDER 05/29/2017 Ot 427.89 CARDIAC DYSRHYTHMIAS NEC 05/29/2017 Ot 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 05/29/2017 Ot 785.0 TACHYCARDIA NOS 05/29/2017 Ot 785.1 PALPITATIONS 05/29/2017 Ot 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 05/29/2017 MYRA SANTOS FACC, TERESITA FACP CCDS Ot 786.09 RESPIRATORY ABNORM NEC 05/29/2017 MYRA SANTOS FACC, ALI FACP CCDS Ot 786.50 CHEST PAIN NOS 05/29/2017 MYRA SANTOS FACC, ALI FACP CCDS Ot 424.0 MITRAL VALVE DISORDER 05/29/2017 TERESITA BRIAN MD, FACC FACP CCDS Ot 427.0 PAROX ATRIAL TACHYCARDIA 06/04/2017 Ot 397.0 TRICUSPID VALVE DISEASE 06/04/2017 Ot 424.0 MITRAL VALVE DISORDER 06/04/2017 Ot 427.89 CARDIAC DYSRHYTHMIAS NEC 06/04/2017 Ot 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 06/04/2017 Ot 785.0 TACHYCARDIA NOS 06/04/2017 Ot 785.1 PALPITATIONS 06/04/2017 Ot 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 06/04/2017 MYRA SANTOS [facility], ALI FACP CCDS Ot 786.09 RESPIRATORY ABNORM NEC 06/04/2017 MYRA SANTOS FAC, ALI FACP CCDS Ot 786.50 CHEST PAIN NOS 06/04/2017 MYRA SANTOS FACC, ALI FACP CCDS Ot 424.0 MITRAL VALVE DISORDER 06/04/2017 MYRA SANTOS [facility], ALI FACP CCDS Ot 427.0 PAROX ATRIAL TACHYCARDIA 11/04/2017 W 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 11/04/2017 W 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 11/04/2017 W 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, high risk, bilateral 11/04/2017 W 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 11/04/2017 W 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, high risk, bilateral 11/04/2017 W 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 11/04/2017 W 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, high risk, bilateral 11/06/2017 W 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 11/06/2017 W 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, high risk, bilateral 11/13/2017 W 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, high risk, bilateral 11/13/2017 W 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, high risk, bilateral 11/13/2017 W H52.13 Myopia, bilateral 11/13/2017 W 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, high risk, bilateral 11/13/2017 W H52.13 Myopia, bilateral 11/13/2017 W 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, high risk, bilateral 11/13/2017 W H52.13 Myopia, bilateral 11/13/2017 W 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, high risk, bilateral 11/13/2017 W H52.13 Myopia, bilateral 12/31/2017 KEKE SANTOS, JOHAN Hurtado Ot I08.1 RHEUMATIC DISORDERS OF BOTH MITRAL AND T 12/31/2017 JOHAN DAVIES MD Ot I47.1 SUPRAVENTRICULAR TACHYCARDIA 12/31/2017 JOHAN DAVIES MD Ot I63.9 CEREBRAL INFARCTION, UNSPECIFIED 12/31/2017 JOHAN DAVIES MD Ot R00.2 PALPITATIONS 12/31/2017 JOHAN DAVIES MD Ot Z72.0 TOBACCO USE 03/03/2018 JOHAN DAVIES MD Ot I08.1 RHEUMATIC DISORDERS OF BOTH MITRAL AND T 03/03/2018 JOHAN DAVIES MD Ot I47.1 SUPRAVENTRICULAR TACHYCARDIA 03/03/2018 JOHAN DAVIES MD Ot I63.9 CEREBRAL INFARCTION, UNSPECIFIED 03/03/2018 JOHAN DAVIES MD Ot R00.2 PALPITATIONS 03/03/2018 JOHAN DAVIES MD Ot Z72.0 TOBACCO USE Procedures Code Description [place] [address] ROUTINE VENIPUNCTURE TERESA PORTER MD 01/24/2009 71552 X-RAY EXAM OF NECK SPINE GERMAN SANTOS, TERESA Mccallum 01/24/2009 03421 COMPREHEN METABOLIC PANEL GERMAN SANTOS, TERESA Mccallum 01/24/2009 06175 DRUG SCREEN, QUALITATE/ MULTI GERMAN SANTOS, TERESA Mccallum 01/24/2009 04460 ASSAY OF BREATH ETHANOL GERMAN SANTOS, TERESA Mccallum 01/24/2009 37991 COMPLETE CBC W/AUTO DIFF WBC GERMAN SANTOS, TERESA Mccallum 01/24/2009 82658 THER/PROPH/DIAG IV INF, INIT GERMAN SANTOS, TERESA Mccallum 01/24/2009 46092 THER/PROPH/DIAG INJ, SC/IM GERMAN SANTOS, TERESA Mccallum 01/24/2009 22706 EMERGENCY DEPT VISIT GERMAN SANTOS, TERESA Mccallum 01/24/2009 9929 INJECT/INFUSE NEC GERMAN SANTOS, TERESA Mccallum 01/24/2009 J1610 GLUCAGON HCL INJ GERMAN SANTOS, TERESA Mcacllum 01/24/2009 J3411 THIAMINE HCL 100 MG GERMAN SANTOS, TERESA Mccallum 01/24/2009 A0425 GROUND MILEAGE GERMAN SANTOS, TERESA Mccallum 01/24/2009 A0429 BLS EMERGENCY TERESA PORTER MD 01/24/[address] CHEST W/O DYE 12/03/2012 Cardiolog Teresita Brian 06/09/2013 76284 ROUTINE VENIPUNCTURE 06/17/2013 02963 CMP 06/17/2013 13780 LIPID PANEL 06/17/2013 6512534 GFR CALC (RESULT ONLY) 06/17/2013 27225 TSH 06/17/2013 28383 T4 FREE 06/17/2013 60341 DIGOXIN 06/17/2013 90472 STRESS TEST, CARDIAC ( SPECIFY TYPE) 06/19/2013 41491 US CAROTID DOPPLER 06/19/2013 D0099 NO CHARGE/FOLLOW UP 12/04/2013 GENERAL D ADRIANNA SIMON 12/04/2013 15750 ECHO 2D 01/13/2014 63769 OXIMETRY 01/13/2014 89009 EKG, TRACING (IN-HOUSE) 09/27/2014 48526 OXIMETRY 09/27/2014 87113 EYE EXAM T TREATMENT 11/04/2017 12502 Gdx Oct Optic Nerve 11/04/2017 40541 EYE EXAM WITH PHOTOS 11/04/2017 39724 EYE EXAM ESTABLISHED PAT 11/13/2017 86820 REFRACTION 11/13/2017 51970 VISUAL FIELD EXAMINATION(S) 11/13/2017 V2020 Vision svcs frames purchases 11/13/2017 V2307 Lens sphcy trifocal 4.25-7/ . 11/13/2017 V2715 Prism lens/es 11/13/2017 V2782 Lens, 1.54-1.65 p/1.60- 1.79g 11/13/2017 VNOPP No Protection Plan 11/13/2017 Results Test Result Range CMP - 05/24/17 10:10 Glucose, Serum 101 mg/dL 65-99 BUN 15 mg/dL 6-24 Creatinine, Serum 0.91 mg/dL 0.76-1.27 eGFR If NonAfricn Am 95 mL/min/1.73 >59 eGFR If Africn Am 109 mL/min/1.73 >59 BUN/Creatinine Ratio 16 9-20 Sodium, Serum 139 mmol/L 134-144 Potassium, Serum 4.9 mmol/L 3.5-5.2 Chloride, Serum 96 mmol/L 96-106 Carbon Dioxide, Total 24 mmol/L 18-29 Calcium, Serum 9.9 mg/dL 8.7-10.2 Protein, Total, Serum 7.2 g/dL 6.0-8.5 Albumin, Serum 4.7 g/dL 3.5-5.5 Globulin, Total 2.5 g/dL 1.5-4.5 A/G Ratio 1.9 1.2-2.2 Bilirubin, Total 0.4 mg/dL 0.0-1.2 Alkaline Phosphatase, S 87 IU/L 39-117 AST (SGOT) 21 IU/L 0-40 ALT (SGPT) 22 IU/L 0-44 TSH - 07/31/18 11:03 TSH 1.74 mIU/L 0.40-4.50 Encounters ACCT No. Visit Date/Time Discharge Status Pt. Type Provider Facility Loc./Unit Complaint [id number] 01/24/2009 19:35:00 01/24/2009 23:59:59 CLS Emergency [id number] 01/24/2009 18:17:00 01/24/2009 23:59:59 CLS Outpatient [id number] 12/30/2017 10:43:00 12/30/2017 23:59:59 CLS Outpatient JOHAN DAVIES MD [facility] CARD R00.2 PALPITATIONS [id number] 06/05/2017 12:00:00 06/05/2017 23:59:59 CLS Preadmit JOHAN DAVIES MD [facility] CARD PSVT [id number] 02/08/2014 10:56:00 02/08/2014 23:59:59 CLS Outpatient TERESITA BRIAN MD, FACC, FACP CCDS [facility] CARD AV JUNCTIONAL BEATS,STROKE [id number] 06/22/2013 12:21:00 06/22/2013 23:59:59 CLS Outpatient TERESITA BRIAN MD, FACC, FACP CCDS [facility] RAD DYSPNEA,CHEST PAIN [id number] 12/15/2018 16:14:00 ACT Outpatient JADE PROCTOR [facility] CARD COPD, PSVT [id number] 12/08/2012 11:06:00 Document Registration [id number] 10/31/2012 08:00:00 Document Registration [id number] 08/01/2012 08:22:00 Document Registration [id number] 02/15/2012 11:30:00 Document Registration [id number] 12/17/2011 10:52:00 Document Registration [id number] 11/16/2011 11:26:00 Document Registration [id number] 02/10/2018 11:20:00 02/10/2018 23:59:59 CLS Outpatient VICTORIANO BOSWELL MD [facility] [id number] 07/31/2018 09:40:00 Document Registration [id number] 05/24/2017 09:30:00 Document Registration [id number] 11/13/2017 10:15:00 Document Registration [id number] 11/13/2017 00:00:00 Document Registration [id number] 11/04/2017 13:00:00 Document Registration [id number] 03/24/2018 12:33:22 03/24/2018 23:59:59 DIS Outpatient FAUSTINO TRACY [facility] ERIKA RAD left maxillary sinusitis [id number] 12/21/2017 12:05:19 ACT Document Registration [id number] 09/27/2014 00:00:00 09/27/2014 23:59:59 CLS Outpatient VICTORIANO BOSWELL MD [id number] 09/08/2014 09:10:00 09/08/2014 23:59:59 CLS Outpatient VICTROIANO BOSWELL MD [id number] 08/13/2014 15:09:00 08/13/2014 23:59:59 CLS Outpatient VICTORIANO BOSWELL MD [id number] 06/07/2014 10:11:00 06/07/2014 23:59:59 CLS Outpatient VICTORIANO BOSWELL MD [id number] 03/22/2014 14:54:00 03/22/2014 23:59:59 CLS Outpatient VICTORIANO BOSWELL MD [id number] 02/04/2014 09:08:00 02/04/2014 23:59:59 CLS Outpatient VICTORIANO BOSWELL MD [id number] 01/13/2014 11:04:00 01/13/2014 23:59:59 CLS Outpatient SHANT ELKINS DDS [id number] 12/04/2013 10:12:00 12/04/2013 23:59:59 CLS Outpatient JANNIE NO DDS [id number] 06/17/2013 09:43:00 06/17/2013 23:59:59 CLS Outpatient JOSE WAKEFIELD DO [id number] 12/03/2012 09:01:00 12/03/2012 23:59:59 [place] [id number] 08/06/2012 09:55:00 08/06/2012 23:59:59 CLS Outpatient [id number] 06/11/2013 10:30:00 Document Registration [id number] 12/09/2017 09:57:00 12/09/2017 09:57:00 DIS Emergency HARDEEP MEIER [facility] ER
[2018-12-18] MEDS ORDERED: meTOprolol 5 MG/5 ML (LOPRESSOR) VIAL IV ONE (10:30)
--- NOTE | 2018-12-18 10:40 | ED Cardiac General ---
History of Present Illness General Chief Complaint: Cardiac/General Problems Stated Complaint: SVT Nursing Triage Note: PT AMB TO RM 6 WITH COMPLAINT OF TACHYCARIDA. PT STATES HE WAS SENT BY DR DAVIES. STATES HE HAS AN EXTERNAL HEART MONITOR THAT HAS BEEN SHOWING TACHYCARDIA. PT STATES HE HAD BLOOD WORK DONE THIS AM IN [place] AT [facility]. Source: patient Exam Limitations: no limitations History of Present Illness Date Seen by Provider: Dec 18, 2018 Time Seen by Provider: 10:36 Initial Comments To ER per private vehicle with reports of intermittent tachycardia. He states he 's been tachycardic intermittently his whole life, has a history of SVT treated with ablation about 10 years ago. He denies chest pain or shortness of breath. He is wearing an external front desk monitor which has been showing apparently a 17 run of V. tach and this was transmitted to Dr. Davies's office, he was referred to the emergency room because of this. He states that he doesn't really have any complaints at this time. He is on Cardizem and digoxin. However , this 17 run of V. tach was noted two days ago and he was told at that time to come to the emergency room but has been unable to do so until today. Severity: moderate NTG SL TIRE MOLD TESTER: No ASA po TIRE MOLD TESTER: No Associated Systoms: No Cough, No Fever/Chills, No Headaches, No Syncope Allergies and Home Medications Allergies Coded Allergies: No Known Drug Allergies (Unverified , 12/17/11) Home Medications Aspirin 81 Mg Chew, 81 MG PO DAILY, (Reported) Digoxin 250 Mcg Tablet, 1 EACH PO DAILY, (Reported) Diltiazem Hcl 120 Mg Cap.sr.24h, 1 CAP PO DAILY, (Reported) DO NOT CRUSH Fluticasone Propionate 16 Gm [place], 2 SPRAYS NSEACH PRN, (Reported) Folic Acid 1 Mg Tab, 1 EACH PO DAILY, (Reported) Gabapentin 100 Mg Cap, 100 MG PO BID, (Reported) Ibuprofen 200 Mg Tab, 200 MG PO ONCE, (Reported) Magnesium Amino Acid Chelate 100 Mg Tablet, 100 MG PO DAILY, (Reported) Quetiapine Fumarate 100 Mg Tablet, 150 MG PO DAILY, (Reported) Sertraline Hcl 100 Mg Tab, 200 MG PO DAILY, (Reported) [B 100] , 1 TAB PO DAILY, (Reported) Patient Home Medication List Home Medication List Reviewed: Yes Review of Systems Review of Systems Constitutional: see HPI EENTM: No Symptoms Reported Respiratory: No Symptoms Reported; Denies Cough, Denies Orthopnea, Denies Shortness of Air Cardiovascular: No Symptoms Reported; Denies Chest Pain, Denies Edema, Denies Irregular Heart Rate, Denies Lightheadedness; Palpitations; Denies Syncope Gastrointestinal: See HPI Genitourinary: No Symptoms Reported Musculoskeletal: no symptoms reported Skin: no symptoms reported Psychiatric/Neurological: No Symptoms Reported Endocrine: No Symptoms Reported Past Kdpagtc-Votsdc-Uajeqg Hx Patient Social History Alcohol Use: Occasionally Uses Recreational Drug Use: No Smoking Status: Current Everyday Smoker Type Used: Cigarettes Recent Foreign Travel: No Contact w/Someone Who Travel: No Recent Infectious Disease Expo: No Recent Hopitalizations: No Immunizations Up To Date Tetanus Booster (TDap): Unknown Seasonal Allergies Seasonal Allergies: No Past Medical History Surgeries: Yes (ORAL- NASAL FISTULA REPAIR. SPINAL FUSION) Respiratory: No Cardiac: Yes (SVT, MITRAL VALVE PROLAPSE) Neurological: No Genitourinary: No Gastrointestinal: No Cancer: No Psychosocial: Yes Anxiety, Depression Physical Exam Vital Signs Vital Signs - First Documented 12/18/18 10:18 Temp 97.8 Pulse 108 Resp 15 B/P (MAP) 154/100 (118) Pulse Ox 99 O2 Delivery Room Air Capillary Refill : Less Than 3 Seconds Height, Weight, BMI Height: 6'3.00" Weight: 150lbs. oz. 68.669051uf; BMI Method:Stated General Appearance: No Apparent Distress, WD/WN, Thin HEENT: PERRL/EOMI, TMs Normal Neck: Full Range of Motion, Normal Inspection Respiratory: No Accessory Muscle Use, No Respiratory Distress Cardiovascular: Regular Rate, Rhythm, Normal Peripheral Pulses Gastrointestinal: Normal Bowel Sounds, Non Tender, Soft Extremity: Normal Capillary Refill, Normal Inspection Neurologic/Psychiatric: Alert, Oriented x3 Skin: Normal Color, Warm/Dry Other comments At this time his bit tachycardic at 109 sinus with occasional PVC. Blood pressure 154/100. We will order metoprolol. Progress/Results/Core Measures Results/Orders Lab Results Laboratory Tests Test 12/18/18 10:48 Range/Units White Blood Count 14.1 H 4.3-11.0 10^3/uL Red Blood Count 4.96 4.35-5.85 10^6/uL Hemoglobin 15.0 13.3-17.7 G/DL Hematocrit 44 40-54 % Mean Corpuscular Volume 89 80-99 FL Mean Corpuscular Hemoglobin 30 25-34 PG Mean Corpuscular Hemoglobin Concent 34 32-36 G/DL Red Cell Distribution Width 14.4 10.0-14.5 % Platelet Count 271 130-400 10^3/uL Mean Platelet Volume 9.6 7.4-10.4 FL Neutrophils (%) (Auto) 67 42-75 % Lymphocytes (%) (Auto) 26 12-44 % Monocytes (%) (Auto) 6 0-12 % Eosinophils (%) (Auto) 1 0-10 % Basophils (%) (Auto) 0 0-10 % Neutrophils # (Auto) 9.4 H 1.8-7.8 X 10^3 Lymphocytes # (Auto) 3.7 1.0-4.0 X 10^3 Monocytes # (Auto) 0.9 0.0-1.0 X 10^3 Eosinophils # (Auto) 0.2 0.0-0.3 10^3/uL Basophils # (Auto) 0.0 0.0-0.1 10^3/uL Neutrophils % (Manual) 65 % Lymphocytes % (Manual) 30 % Monocytes % (Manual) 5 % Eosinophils % (Manual) 0 % Basophils % (Manual) 0 % Band Neutrophils 0 % Blood Morphology Comment NORMAL D-Dimer 0.40 0.00-0.49 UG/ML Sodium Level 136 135-145 MMOL/L Potassium Level 4.2 3.6-5.0 MMOL/L Chloride Level 100 98-107 MMOL/L Carbon Dioxide Level 23 21-32 MMOL/L Anion Gap 13 5-14 MMOL/L Blood Urea Nitrogen 21 H 7-18 MG/DL Creatinine 1.03 0.60-1.30 MG/DL Estimat Glomerular Filtration Rate > 60 BUN/Creatinine Ratio 20 Glucose Level 83 70-105 MG/DL Calcium Level 9.5 8.5-10.1 MG/DL Magnesium Level 2.2 1.8-2.4 MG/DL Troponin I < 0.028 <0.028 NG/ML Thyroid Stimulating Hormone (TSH) 0.98 0.35-4.94 UIU/ML My Orders Orders - VINCENT BOBO OPTICAL GLASS ETCHER Cbc With Automated Diff (12/18/18 10:30) Thyroid Stimulating Hormone (12/18/18 10:30) Basic Metabolic Panel (12/18/18 10:30) Troponin I (12/18/18 10:30) Fibrin Degradation Products (12/18/18 10:30) Iv Heplock-Insert (Order) (12/18/18 10:30) Metoprolol Tartrate Injection (Lopressor (12/18/18 10:30) Magnesium (12/18/18 10:35) Iv Heplock-Insert (Order) (12/18/18 10:35) Manual Differential (12/18/18 10:48) Medications Given in ED Current Medications Medications Dose Ordered Sig/Josy Route Start Time Stop Time Status Last Admin Dose Admin Metoprolol Tartrate 5 mg ONCE ONCE IV 12/18/18 10:30 12/18/18 10:32 DC 12/18/18 10:53 5 MG Vital Signs/I&O 12/18/18 10:18 Temp 97.8 Pulse 108 Resp 15 B/P (MAP) 154/100 (118) Pulse Ox 99 O2 Delivery Room Air Blood Pressure Mean: 118 Departure Communication (Admissions) Discussed with Dr. Davies, we will discharge from here to his office. Patient was given metoprolol 5 mg IV here. Impression Primary Impression: History of ventricular tachycardia Disposition: HOME, SELF-CARE Condition: Stable Departure-Patient Inst. Decision time for Depature: 11:56 Referrals: JOHAN DAVIES MD, BRIAN D MD (PCP) Primary Care Physician Patient Instructions: Ventricular Tachycardia Add. Discharge Instructions: 1. Go directly from here to Dr. Davies's office. Return to ER for any concerns. All discharge instructions reviewed with patient and/or family. Voiced understanding. Copy Copies To 1: JOHAN DAVIES MD, PETER J APRN Dec 18, 2018 10:40
[2018-12-18 10:54] LABS: BASOPHILS % (AUTO) 0 % (0-10); EOSINOPHILS # (AUTO) 0.2 10^3/uL (0.0-0.3); EOSINOPHILS % (AUTO) 1 % (0-10); HEMATOCRIT 44 % (40-54); LYMPHOCYTES # (AUTO) 3.7 X 10^3 (1.0-4.0); LYMPHOCYTES % (AUTO) 26 % (12-44); MEAN CORPUSCULAR HEMOGLOBIN 30 PG (25-34); MEAN CORPUSCULAR HGB CONC 34 G/DL (32-36); MEAN CORPUSCULAR VOLUME 89 FL (80-99); MEAN PLATELET VOLUME 9.6 FL (7.4-10.4); MONOCYTES # (AUTO) 0.9 X 10^3 (0.0-1.0); MONOCYTES % (AUTO) 6 % (0-12); NEUTROPHILS # (AUTO) 9.4 X 10^3 (1.8-7.8); NEUTROPHILS % (AUTO) 67 % (42-75); PLATELET COUNT 271 10^3/uL (130-400); RED CELL DISTRIBUTION WIDTH 14.4 % (10.0-14.5); WHITE BLOOD COUNT 14.1 10^3/uL (4.3-11.0)
[2018-12-18 11:12] LABS: BUN/CREATININE RATIO 20; CALCIUM 9.5 MG/DL (8.5-10.1); CARBON DIOXIDE 23 MMOL/L (21-32); CHLORIDE 100 MMOL/L (98-107); CREATININE SERUM 1.03 MG/DL (0.60-1.30); GFR ESTIMATED > 60; GLUCOSE 83 MG/DL (70-105); MAGNESIUM 2.2 MG/DL (1.8-2.4); POTASSIUM 4.2 MMOL/L (3.6-5.0); SODIUM 136 MMOL/L (135-145)
[2018-12-18 11:13] LABS: BAND NEUTROPHILS 0 %; LYMPHOCYTES % (MANUAL) 30 %; NEUTROPHILS % (MANUAL) 65 %
[2018-12-18 11:14] LABS: BASOPHILS % (MANUAL) 0 %; EOSINOPHILS % (MANUAL) 0 %; MONOCYTES % (MANUAL) 5 %; RBC MORPH NORMAL
[2018-12-18 12:10] VITALS: BP 128/76
== END 2018-12-18 12:10 | disposition home or self-care (01) ==
LOC: EDUNIT# 09:37 → ER 09:40
DX: R00.0 Tachycardia, unspecified (principal); F41.9 Anxiety disorder, unspecified; F32.9 Major depressive disorder, single episode, unspecified; F17.210 Nicotine dependence, cigarettes, uncomplicated; Z79.82 Long term (current) use of aspirin; Z79.51 Long term (current) use of inhaled steroids; Z98.1 Arthrodesis status; Z98.890 Other specified postprocedural states
CPT/HCPCS: 36415; 80048; 83735; 84443; 84484; 85007; 85027; 85379

== ENCOUNTER 2018-12-24 11:46 | Day surgery (SDC) | payer MEDICAID ==
[2018-12-24] VITALS (9 sets, daily range): BP systolic 93–122; BP diastolic 63–83
[~2018-12-24] VITALS: Ht 188 cm; Wt 67.1 kg
--- OUTSIDE RECORDS SUMMARY | 2018-12-24 11:54 | XMS REPORT | Continuity of Care Document ---
Author Author [facility] Organization [facility] Address Unknown Phone Unavailable Allergies Active Description Code Type Severity Reaction Onset Reported/Identified Relationship to Patient Clinical Status Yes NKA Drug N/A N/A Yes No Known Drug Allergies [id number] Drug Allergy Unknown N/A 12/17/2011 Yes Abilify [...] 427.89 OTHER SPECIFIED CARDIAC DYSRHYTHMIAS 10/18/2011 VICTORIANO BSOWELL MD 477.9 ALLERGIC RHINITIS CAUSE UNSPECIFIED 10/18/2011 [...] NO DDS V76.51 COLON CANCER SCREENING 01/29/2013 RBITTNI ESCALANTES, SHANT V76.51 COLON CANCER SCREENING 01/29/2013 [...] Gupta 785.0 TACHYCARDIA 06/11/2013 ANDREIA SANTOS, VICTORIANO Gupat 785.0 TACHYCARDIA 06/11/2013 ANDREIA SANTOS, VICTORIANO Gupta [...] SANTOS, VICTORIANO Gupta 305.1 TOBACCO ABUSE 06/17/2013 ANDERIA SANTOS, VICTORIANO Gupta 345.90 SEIZURE DISORDER 06/17/2013 [...] 01/13/2014 VICTORIANO BOSWELL MD 433.10 CAROTID 01/13/2014 ANDREIA SANTOS, VICTORIANO [...] Ot 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 06/04/2017 MYRA SANTOS [facility], ALI FACP CCDS Ot 786.09 RESPIRATORY ABNORM NEC 06/04/2017 MYRA SANTOS FAC, ALI FACP CCDS Ot 786.50 CHEST PAIN NOS 06/04/2017 MYRA SANTOS FACC, ALI FACP CCDS Ot 424.0 MITRAL VALVE DISORDER 06/04/2017 MYRA SANTOS [facility], ALI FACP CCDS Ot 427.0 PAROX ATRIAL [...] DAVIES MD Ot I47.1 SUPRAVENTRICULAR TACHYCARDIA 12/31/2017 KEKE SANTOS, JOHAN Hurtado Ot I63.9 CEREBRAL INFARCTION, UNSPECIFIED 12/31/2017 KEKE SANTOS, JOHAN Hurtado Ot R00.2 PALPITATIONS 12/31/2017 KEKE SANTOS, JOHAN Hurtado Ot Z72.0 TOBACCO USE 03/03/2018 KEKE SANTOS, JOHAN Hurtado Ot I08.1 RHEUMATIC DISORDERS OF BOTH MITRAL AND T 03/03/2018 JOHAN DAVIES MD Ot I47.1 SUPRAVENTRICULAR TACHYCARDIA 03/03/2018 JOHAN DAVIES MD Ot I63.9 CEREBRAL INFARCTION, UNSPECIFIED 03/03/2018 JOHAN DAVIES MD Ot R00.2 PALPITATIONS 03/03/2018 JOHAN DAVIES MD Ot Z72.0 TOBACCO USE 12/20/2018 VINCENT BOBO APRN Ot F17.210 NICOTINE DEPENDENCE, CIGARETTES, UNCOMPL 12/20/2018 VINCENT BOBO APRN Ot F32.9 MAJOR DEPRESSIVE DISORDER, SINGLE EPISOD 12/20/2018 VINCENT BOBO APRN Ot F41.9 ANXIETY DISORDER, UNSPECIFIED 12/20/2018 VINCENT BOBO APRN Ot R00.0 TACHYCARDIA, UNSPECIFIED 12/20/2018 VINCENT BOBO APRN Ot Z79.51 ANALYTICS INTERN (CURRENT) USE OF INHALED STERO 12/20/2018 VINCENT BOBO APRN Ot Z79.82 INTERMEDIATE (CURRENT) USE OF ASPIRIN 12/20/2018 VINCENT BOBO APRN Ot Z98.1 ARTHRODESIS STATUS 12/20/2018 VINCENT BOBO APRN Ot Z98.890 OTHER SPECIFIED POSTPROCEDURAL STATES 12/24/2018 VINCENT BOBO APRN Ot F17.210 NICOTINE DEPENDENCE, CIGARETTES, UNCOMPL 12/24/2018 VINCENT BOBO APRN Ot F32.9 MAJOR DEPRESSIVE DISORDER, SINGLE EPISOD 12/24/2018 VINCENT BOBO APRN Ot F41.9 ANXIETY DISORDER, UNSPECIFIED 12/24/2018 VINCENT BOBO APRN Ot R00.0 TACHYCARDIA, UNSPECIFIED 12/24/2018 VINCENT BOBO APRN Ot Z79.51 INTERMEDIATE (CURRENT) USE OF INHALED STERO 12/24/2018 VINCENT BOBO APRN Ot Z79.82 INTERMEDIATE (CURRENT) USE OF ASPIRIN 12/24/2018 VINCENT BOBO APRN Ot Z98.1 ARTHRODESIS STATUS 12/24/2018 VINCENT BOBO APRN Ot Z98.890 OTHER SPECIFIED POSTPROCEDURAL STATES Procedures Code Description [place] [address] ROUTINE VENIPUNCTURE GERMAN SANTOS, TERESA Mccallum 01/24/2009 16797 X-RAY EXAM OF NECK SPINE GERMAN SANTOS, TERESA Mccallum 01/24/2009 99030 COMPREHEN METABOLIC PANEL GERMAN SANTOS, TERESA Mccallum 01/24/2009 02256 DRUG SCREEN, QUALITATE/ MULTI GERMAN SANTOS, TERESA Mccallum 01/24/2009 49543 ASSAY OF BREATH ETHANOL GERMAN SANTOS, TERESA Mccallum 01/24/2009 11944 COMPLETE CBC W/AUTO DIFF WBC GERMAN SANTOS, TERESA Mccallum 01/24/2009 29006 THER/PROPH/DIAG IV INF, INIT GERMAN SANTOS, TERESA Mccallum 01/24/2009 82726 THER/PROPH/DIAG INJ, SC/IM GERMAN SANTOS, TERESA Mccallum 01/24/2009 66153 EMERGENCY DEPT VISIT GERMAN SANTOS, TERESA Mccallum 01/24/2009 9929 INJECT/INFUSE NEC GERMAN SANTOS, TERESA Mccallum 01/24/2009 J1610 GLUCAGON HCL INJ GERMAN SANTOS, TERESA Mccallum 01/24/2009 J3411 THIAMINE HCL 100 MG GERMAN SANTOS, TERESA Mccallum 01/24/2009 A0425 GROUND MILEAGE GERMAN SANTOS, TERESA Mccallum 01/24/2009 A0429 BLS EMERGENCY GERMAN SANTOS, TERESA Mccallum 01/24/[address] CHEST W/O DYE 12/03/2012 Cardiolog Teresita Brian 06/09/2013 62453 ROUTINE VENIPUNCTURE 06/17/2013 85609 CMP 06/17/2013 18159 LIPID PANEL 06/17/2013 0184581 GFR CALC (RESULT ONLY) 06/17/2013 84881 TSH 06/17/2013 29422 T4 FREE 06/17/2013 39495 DIGOXIN 06/17/2013 39605 STRESS TEST, CARDIAC ( SPECIFY TYPE) 06/19/2013 99712 US CAROTID DOPPLER 06/19/2013 D0099 NO CHARGE/FOLLOW UP 12/04/2013 GENERAL D ADRIANNA SIMON 12/04/2013 84877 ECHO 2D 01/13/2014 90335 OXIMETRY 01/13/2014 23520 EKG, TRACING (IN-HOUSE) 09/27/2014 14438 OXIMETRY 09/27/2014 03504 EYE EXAM T TREATMENT 11/04/2017 73037 Gdx Oct Optic Nerve 11/04/2017 21311 EYE EXAM WITH PHOTOS 11/04/2017 85015 EYE EXAM ESTABLISHED PAT 11/13/2017 98093 REFRACTION 11/13/2017 32922 VISUAL FIELD EXAMINATION(S) 11/13/2017 V2020 Vision svcs frames purchases 11/13/2017 V2307 Lens sphcy trifocal 4.25-7/ . 11/13/2017 V2715 Prism lens/es 11/13/2017 V2782 Lens, 1.54-1.65 p/1.60- 1.79g 11/13/2017 VNOPP No Protection Plan 11/13/2017 Results Test Result Range [facility] - 05/24/17 10:10 Glucose, Serum 101 mg/dL [...] - 07/31/18 11:03 TSH 1.74 mIU/L 0.40-4.50 Complete blood count (CBC) with automated white blood cell (WBC) differential - 12/18/18 10:48 Blood leukocytes automated count (number/volume) 14.1 10*3/uL 4.3-11.0 Blood erythrocytes automated count (number/volume) 4.96 10*6/uL 4.35-5.85 Venous blood hemoglobin measurement (mass/volume) 15.0 g/dL 13.3-17.7 Blood hematocrit (volume fraction) 44 % 40-54 Automated erythrocyte mean corpuscular volume 89 [foz_us] 80-99 Automated erythrocyte mean corpuscular hemoglobin (mass per erythrocyte) 30 pg 25-34 Automated erythrocyte mean corpuscular hemoglobin concentration measurement ( mass/volume) 34 g/dL 32-36 Automated erythrocyte distribution width ratio 14.4 % 10.0-14.5 Automated blood platelet count (count/volume) 271 10*3/uL 130-400 Automated blood platelet mean volume measurement 9.6 [foz_us] 7.4-10.4 Automated blood neutrophils/100 leukocytes 67 % 42-75 Automated blood lymphocytes/100 leukocytes 26 % 12-44 Blood monocytes/100 leukocytes 6 % 0-12 Automated blood eosinophils/100 leukocytes 1 % 0-10 Automated blood basophils/100 leukocytes 0 % 0-10 Blood neutrophils automated count (number/volume) 9.4 10*3 1.8-7.8 Blood lymphocytes automated count (number/volume) 3.7 10*3 1.0-4.0 Blood monocytes automated count (number/volume) 0.9 10*3 0.0-1.0 Automated eosinophil count 0.2 10*3/uL 0.0-0.3 Automated blood basophil count (count/volume) 0.0 10*3/uL 0.0-0.1 Fibrin D-dimer FEU measurement in platelet poor plasma (mass/volume) - 10:48 Fibrin D-dimer FEU measurement in platelet poor plasma (mass/volume) 0.40 ug/mL 0.00-0.49 Whole blood basic metabolic panel - 12/18/18 10:48 Serum or plasma sodium measurement (moles/volume) 136 mmol/L 135-145 Serum or plasma potassium measurement (moles/volume) 4.2 mmol/L 3.6-5.0 Serum or plasma chloride measurement (moles/volume) 100 mmol/L 98-107 Carbon dioxide 23 mmol/L 21-32 Serum or plasma anion gap determination (moles/volume) 13 mmol/L 5-14 Serum or plasma urea nitrogen measurement (mass/volume) 21 mg/dL 7-18 Serum or plasma creatinine measurement (mass/volume) 1.03 mg/dL 0.60-1.30 Serum or plasma urea nitrogen/creatinine mass ratio 20 NRG Serum or plasma creatinine measurement with calculation of estimated glomerular filtration rate > NRG Serum or plasma glucose measurement (mass/volume) 83 mg/dL 70-105 Serum or plasma calcium measurement (mass/volume) 9.5 mg/dL 8.5-10.1 Magnesium - 12/18/18 10:48 Magnesium 2.2 mg/dL 1.8-2.4 Blood manual differential performed detection - 12/18/18 10:48 Blood monocytes/100 leukocytes 5 % NRG Manual blood segmented neutrophils/100 leukocytes 65 % NRG Blood band neutrophils/100 leukocytes 0 % NRG Manual blood lymphocytes/100 leukocytes 30 % NRG Manual eosinophils/100 leukocytes in nose 0 % NRG Manual blood basophils/100 leukocytes 0 % NRG Blood erythrocyte morphology finding identification NORMAL NRG Serum or plasma troponin i.cardiac measurement (mass/volume) - 12/18/18 10:48 Serum or plasma troponin i.cardiac measurement (mass/volume) < ng/ mL <0.028 THYROID STIMULATING HORMONE - 12/18/18 10:48 THYROID STIMULATING HORMONE 0.98 u[iU]/mL 0.35-4.94 Encounters ACCT No. Visit Date/Time Discharge Status Pt. Type Provider Facility Loc./Unit Complaint [id number] 01/24/2009 19:35:00 01/24/2009 23:59:59 CLS Emergency [id number] 01/24/2009 18:17:00 01/24/2009 23:59:59 CLS Outpatient [id number] 12/18/2018 09:40:00 12/18/2018 12:10:00 DIS Outpatient VINCENT BOBO APRN [facility] ER SVT [id number] 12/15/2018 16:14:00 12/15/2018 23:59:59 CLS Outpatient JADE PROCTOR [facility] CARD COPD, PSVT [id number] 12/30/2017 10:43:00 12/30/2017 23:59:59 CLS Outpatient KEKE SANTOS, JOHAN Hurtado [facility] CARD R00.2 PALPITATIONS [id number] 06/05/2017 12:00:00 06/05/2017 23:59:59 CLS Preadmit JOHAN DAVIES MD [facility] CARD PSVT [id number] 02/08/2014 10:56:00 02/08/2014 23:59:59 CLS Outpatient MYRA SANTOS FACC, ALI FACP CCDS [facility] CARD AV JUNCTIONAL BEATS,STROKE [id number] 06/22/2013 12:21:00 06/22/2013 23:59:59 CLS Outpatient MYRA SANTOS FAC, ALI FACP CCDS [facility] RAD DYSPNEA,CHEST PAIN [id number] 12/24/2018 11:46:00 ACT Outpatient JOHAN DAVIES MD [facility] CATH NSVT, PALPITATIONS, DYSPENA [id number] 12/08/2012 11:06:00 Document Registration [id number] 10/31/2012 08:00:00 Document Registration [id number] 08/01/2012 08:22:00 Document Registration [id number] 02/15/2012 11:30:00 Document Registration [id number] 12/17/2011 10:52:00 Document Registration [id number] 11/16/2011 11:26:00 Document Registration [id number] 02/10/2018 11:20:00 02/10/2018 23:59:59 CLS Outpatient VICTORIANO BOSWELL MD [facility] [id number] 07/31/2018 09:40:00 Document Registration [id number] 05/24/2017 09:30:00 Document Registration [id number] 11/13/2017 10:15:00 Document Registration [id number] 11/13/2017 00:00:00 Document Registration [id number] 11/04/2017 13:00:00 Document Registration [id number] 12/18/2018 07:42:09 12/18/2018 23:59:59 DIS Outpatient VICTORIANO BOSWELL [facility] labs [id number] 03/24/2018 12:33:22 03/24/2018 23:59:59 DIS Outpatient FAUSTINO TRACY [facility] left maxillary sinusitis [id number] 12/21/2017 12:05:19 ACT Document Registration [id number] 09/27/2014 00:00:00 09/27/2014 23:59:59 CLS Outpatient VICTORIANO BOSWELL MD [id number] 09/08/2014 09:10:00 09/08/2014 23:59:59 CLS Outpatient VICTORIANO BOSWELL MD [id number] 08/13/2014 15:09:00 08/13/2014 23:59:59 CLS Outpatient VICTORIANO BOSWELL MD [id number] 06/07/2014 10:11:00 06/07/2014 23:59:59 CLS Outpatient VICTORIANO BOSWELL MD [id number] 03/22/2014 14:54:00 03/22/2014 23:59:59 CLS Outpatient VICTORIANO BOSWELL MD [id number] 02/04/2014 09:08:00 02/04/2014 23:59:59 CLS Outpatient VICTORIANO BOSWELL MD [id number] 01/13/2014 11:04:00 01/13/2014 23:59:59 CLS Outpatient SHANT ELKINS DDS [id number] 12/04/2013 10:12:00 12/04/2013 23:59:59 CLS Outpatient JANNIE NO DDS [id number] 06/17/2013 09:43:00 06/17/2013 23:59:59 CLS Outpatient JOSE WAKEFIELD DO [id number] 12/03/2012 09:01:00 12/03/2012 23:59:59 [place] [id number] 08/06/2012 09:55:00 08/06/2012 23:59:59 CLS Outpatient [id number] 06/11/2013 10:30:00 Document Registration [id number] 12/09/2017 09:57:00 12/09/2017 09:57:00 DIS Emergency HARDEEPHARDEEP [facility] ER
[2018-12-24] MEDS ORDERED: NS IV 1000 ML 1,000 ML IV SCH ×2 (11:58→13:47)
[2018-12-24] MEDS ORDERED: LIDOCAINE 1% INJ 20 ML 20 ML VIAL ONE (12:06)
[2018-12-24] MEDS ORDERED: HEParin 1000 UNIT/ML (10ML VIAL) FOR BOLUS ONE (12:06)
[2018-12-24] MEDS ORDERED: NS IV 1000 ML 3,000 ML ONE (12:06)
[2018-12-24 12:26] LABS: HEMOGLOBIN 13.6 G/DL (13.3-17.7); MEAN PLATELET VOLUME 9.7 FL (7.4-10.4); RED CELL DISTRIBUTION WIDTH 14.2 % (10.0-14.5); WHITE BLOOD COUNT 8.1 10^3/uL (4.3-11.0)
[2018-12-24 12:44] LABS: INR 0.9 (0.8-1.4)
--- NOTE | 2018-12-24 12:51 | Diagnostic Imaging Report ---
INDICATION: Palpitations. FINDINGS: The heart size and configuration are normal. The lungs are hyperexpanded but free of infiltrate. There is some scarring in the right greater than left pulmonary apices. No edema, pneumonia, effusion, pneumothorax, or failure pattern. Chronic deformities to the partially visualized proximal left humerus are noted. IMPRESSION: Air trapping and some mild apical scarring. No acute cardiopulmonary abnormality is identified. Dictated by: Dictated on workstation # [id number]
[2018-12-24 12:56] LABS: ALANINE AMINOTRANSFERASE 16 U/L (0-55); ALBUMIN 4.5 GM/DL (3.2-4.5); ALKALINE PHOSPHATASE 74 U/L (40-136); BILIRUBIN,TOTAL 0.5 MG/DL (0.1-1.0); BUN/CREATININE RATIO 17; CALCIUM 9.2 MG/DL (8.5-10.1); CARBON DIOXIDE 24 MMOL/L (21-32); CHLORIDE 102 MMOL/L (98-107); CHOLESTEROL 176 MG/DL (< 200); CREATININE SERUM 0.84 MG/DL (0.60-1.30); GFR ESTIMATED > 60; GLUCOSE 101 MG/DL (70-105); HDL CHOLESTEROL 88 MG/DL (40-60); POTASSIUM 3.5 MMOL/L (3.6-5.0); SODIUM 138 MMOL/L (135-145); TOTAL PROTEIN 7.3 GM/DL (6.4-8.2); TRIGLYCERIDES 158 MG/DL (<150); VLDL CHOLESTEROL 32 MG/DL (5-40)
[2018-12-24] MEDS ORDERED: MIDAZOLAM 5 MG/5 ML (VERSED) VIAL ONE (13:03)
[2018-12-24] MEDS ORDERED: ACAM333T8 PO (13:03)
[2018-12-24] MEDS ORDERED: QUET400T PO (13:03)
[2018-12-24] MEDS ORDERED: VARE0.5T PO (13:03)
[2018-12-24] MEDS ORDERED: ATOR10TA66 PO (13:03)
[2018-12-24] MEDS ORDERED: SERT100T PO (13:03)
[2018-12-24] MEDS ORDERED: METO-351 PO (13:03)
[2018-12-24] MEDS ORDERED: fentaNYL INJECTION 100 MCG/2 ML AMP ONE (13:04)
--- NOTE | 2018-12-24 13:47 | Cardiac Procedure Note-CS/ASA ---
Pre-Procedure Note Pre-Op Procedure Note H&P Reviewed The H&P was reviewed, patient examined and no changes noted. Date H&P Reviewed: Dec 24, 2018 Time H&P Reviewed: 13:46 Conscious Sedation Pre-Proced Time 13:46 ASA Score 3 For ASA 3 and 4: Consider anesthesia and medical clearance. Also, for patients with a history of failed moderate sedation consider anesthesia. Airway Lungs Heart ASA score ASA 1: a normal healthy patient ASA 2: a patient with a mild systemic disease (mid diabetes, controlled hypertension, obesity x ASA 3: a patient with a severe systemic disease that limits activity (angina , COPD, prior Myocardial infarction) ASA 4: a patient with an incapacitating disease that is a constant threat to life (CHF, renal failure) ASA 5: a moribund patient not expected to survive 24 hrs. (ruptured aneurysm) ASA 6: a declared brain- patient whose organs are being harvested. For emergent operations, add the letter E after the classification Mallampati Classification Grade 3 Sedation Plan Analgesia, Amnesia, Plan communicated to team members, Discussed options with patient/fam, Discussed risks with patient/fam The patient is an appropriate candidate to undergo the planned procedure, sedation, and anesthesia. The patient immediately re-assessed prior to indication. JOHAN DAVIES MD Dec 24, 2018 13:47
--- NOTE | 2018-12-24 13:48 | Discharge Inst-Post CATH ---
Discharge Inst-CATH/EP Post Cardiac Cath/EP D/C Inst Follow Up/Plan Appointment with Dr. DAVIES's office in 2-4 weeks CARDIAC CATH DISCHARGE INSTRUCTIONS *Hold Metformin for 48 hours post heart cath. ACTIVITY * Go Home directly and rest. * Limit activity of the leg (or wrist if it was used) for 7 days including aerobics, swimming, jogging, bicycling, etc. * Restrict stair-climbing for 7 days if possible, if not, climb up with your non -cath leg, then bring together on the same step. * Avoid lifting, pushing, pulling or excessive movement of the affected extremity for 7 days. * Customary sexual activity may be resumed after 2 days-use caution not to use a position that strains or causes pain to the affected extremity. * No driving for 24 hours. * NO SMOKING. * Avoid straining for bowel movements for 7 days. * Gentle walking on level ground is allowed. * Returning to work will depend on the type of procedure and the results. Your doctor will discuss this with you. CALL YOUR DOCTOR FOR ANY OF THE FOLLOWING: *If bleeding from the puncture site occurs- Apply gentle pressure to site with clean cloth and call your doctor or EMS. * If a knot or lump forms under the skin, increases in size, or causes pain. * If bruising appears to be worsening or moving further down your leg instead of disappearing. * Temperature above 101 F. CARE OF YOUR GROIN INCISION; * Bruising or purple discoloration of the skin near the puncture site is common. * You may shower only, no bathtub bathing for 5 days. Be careful to avoid slipping as your leg may feel stiff. * If a closure device was used on your femoral artery, please see the attached guide regarding care of the device and your leg. * Leave the dressing on, until removed by office staff. CARE OF YOUR WRIST INCISION; * Bruising or purple discoloration of the skin near the puncture site is common. * You may shower. * DO NOT submerge wrist. * Leave dressing on, until removed by office staff.. JOHAN DAVIES MD Dec 24, 2018 13:48
--- NOTE | 2018-12-24 13:52 | Cardiac Cath Report ---
Cardiac Cath Report Physician (s)/Flatwork Folder (s) Physician JOHAN DAVIES MD Pre-Procedure Diagnosis Pre-Procedure Diagnosis: ventricular tachycardia Post-Procedure Note Procedure Start Date: Dec 24, 2018 Name of Procedure: Left heart catheterization Aortic arch angiogram Left ventriculogram Findings/Procedure Note PROCEDURE NOTE: After explaining the procedure to the patient, all pros and cons were explained , all questions were answered. The patient signed the consent and then he was placed on the cardiac catheterization laboratory. Groin was prepped SL fashion local anesthesia was used. Sheath placed in the right femoral artery. Dalila right and left catheter were used to access the coronary system. Pigtail was used to access the left ventricular cavity. Left ventriculogram was done Aortic arch angiogram was done At the end of the procedure the sheath was removed. Closure device was used FINDINGS: Hemodynamics LV 101/20, end-diastolic pressure of 20 Aorta 105/62 mean of 79 ANATOMY: Left Main is free of obstructive disease Left Anterior Descending is free of obstructive disease Left Circumflex has mild disease nonobstructive disease Right Coronory Artery has mild disease nonobstructive disease LV Gram is normal in size with normal contraction. Estimated ejection fraction 50 percent Aorta evaluation done with aortic arch angiogram which showed normal aortic arch , no dissection or aneurysm, normal origin of the innominate artery, left carotid and left subclavian arteries CONCLUSION: 1. Mild coronary artery disease nonobstructive disease 2. Normal left ventricular size and systolic function estimated ejection fraction 50 percent 3. Normal aortic arch and great vessels of the neck DISCUSSION AND RECOMMENDATION: Ventricular tachycardia is probably not related to coronary artery disease, continue on Cardizem, will refer him for EP evaluation Anesthesia Type: Conscious Sedation Estimated blood loss (mL): 15 ml Contrast Amount: 50 ml Total Radiation Dose: 146 mGy Post-Procedure Diagnosis Post-operative diagnosis: Ventricular tachycardia Coronary artery disease Palpitation Hypertension JOHAN Galan MD Dec 24, 2018 13:52
[2018-12-24] MEDS ORDERED: PATIENT MAY USE OWN MEDS, ALL PO SCH (14:00)
== END 2018-12-24 18:10 | disposition home or self-care (01) ==
LOC: CATH 11:46 → ICU 14:06 → CATH 18:10
PROVIDERS: ATTEND Internal Medicine Cardiovascular Disease
DX: I47.1 Supraventricular tachycardia (principal); I25.10 Atherosclerotic heart disease of native coronary artery without angina pectoris; R00.2 Palpitations; I10 Essential (primary) hypertension; Q87.40 Marfan syndrome, unspecified; J44.9 Chronic obstructive pulmonary disease, unspecified; F17.210 Nicotine dependence, cigarettes, uncomplicated; I65.23 Occlusion and stenosis of bilateral carotid arteries; F10.21 Alcohol dependence, in remission
CPT/HCPCS: 36221; 36415; 71045; 80053; 80061; 85027; 85610; 85730; 87081; 93005; 93458

== ENCOUNTER 2019-02-13 07:00 | Day surgery (SDC) | payer MEDICAID ==
[2019-02-13] VITALS (15 sets, daily range): BP systolic 107–145; BP diastolic 64–87
[~2019-02-13] VITALS: Ht 188 cm; Wt 67.1 kg
[~2019-02-13 07:00] MED LIST changes: +ACAM333T8 PO; +ATOR10TA66 PO; +METO-351 PO; +QUET400T PO; +SERT100T PO; +VARE0.5T PO
[2019-02-13] MEDS ORDERED: NS IV 1000 ML 1,000 ML IV SCH ×2 (07:01→10:37)
[2019-02-13] MEDS ORDERED: HEParin (CATH LAB) 1,000 ML IV ONE (07:01)
[2019-02-13] MEDS ORDERED: LIDOCAINE 1% INJ 20 ML 20 ML VIAL ONE (07:01)
[2019-02-13] MEDS ORDERED: NS IV 1000 ML 1,000 ML ONE (07:01)
--- OUTSIDE RECORDS SUMMARY | 2019-02-13 07:04 | XMS REPORT ---
Author Author Migration, Doctor Organization [facility] Address Unknown Phone Unavailable Care Team Providers Care Adjunct Philosophy Faculty Name Role Phone Migration, Doctor Unavailable Unavailable PROBLEMS Type Condition ICD9-CM Code ZIZ83-IC Code Onset Dates Condition Status SNOMED Code Problem Tinea corporis B35.4 Active 07261855 Problem Palpitations R00.2 Active 96788298 Problem Sinusitis J32.9 Active 70029862 Problem Pain in right shoulder M25.511 Active 170533623 Problem Marfan's syndrome, unspecified Q87.40 Active 97953799 Problem Mixed hyperlipidemia E78.2 Active 306414016 Problem ETD (eustachian tube dysfunction), left H69.82 Active 48948956 Problem Tobacco dependence F17.200 Active 80558634 Problem Left maxillary sinusitis J32.0 Active 41593378 Problem Epilepsy, unspecified, not intractable, without status epilepticus G40.909 Active 48007861 Problem Generalized anxiety disorder F41.1 Active 71730937 Problem Chronic obstructive pulmonary disease, unspecified J44.9 Active 65530521 Problem Major depressive disorder, recurrent 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 Active 23681900 Problem Type 1 diabetes mellitus without complications E10.9 Active 810846521 Problem PSVT (paroxysmal supraventricular tachycardia) I47.1 Active 90138835 Problem Cerebrovascular accident (CVA), unspecified mechanism I63.9 Active 483723575 ALLERGIES No Information ENCOUNTERS Encounter Location Date Diagnosis [facility] [address] [place] [address] Nov, [facility] [address] [place] [address] Jul, Mixed hyperlipidemia E78.2 [facility] [address] [place] [address] Jul, Encounter for immunization Z23 [facility] [address] [place] [address] Jul, Major depressive disorder, recurrent 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 and Generalized anxiety disorder F41.1 [facility] [address] [address] Feb, [facility] [address] [address] January, Left maxillary sinusitis J32.[address] [address] 17 Oct, 2017 [facility] [address] [address] May, Tobacco dependence F17.200 ; Mixed hyperlipidemia E78.2 and Encounter for immunization Z23 [address] [address] Apr, Major depressive disorder, recurrent 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 ; 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 ; Palpitations R00.2 ; PSVT ( paroxysmal supraventricular tachycardia) I47.1 ; Cerebrovascular accident (CVA) , unspecified mechanism I63.9 and Tobacco use Z72.[address] [address] Apr, Tobacco dependence F17.200 and Type 1 diabetes mellitus without complications E10.[address] [address] Mar, Tobacco dependence F17.200 ; Chronic obstructive pulmonary disease, unspecified J44.9 ; Mixed hyperlipidemia E78.2 ; Palpitations R00.2 and Family history of prostate cancer Z80.[address] [address] Dec, Major depressive disorder, recurrent 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 ; Type 1 diabetes mellitus without complications E10.9 and 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 [address] Jul, ETD ( eustachian tube dysfunction), left H69.82 and Tobacco dependence F17.200 [facility] [address] [facility] [id number] [address] Jun, Pain in left shoulder M25.512 [facility] [id number] [place] [address] Jun, Pain in left shoulder M25.512 [facility] [address] [place] [address] Jun, Pain in left shoulder M25.512 [facility] [id number] [place] [address] Jun, Pain in left shoulder M25.512 [facility] [id number] [place] [address] Jun, Pain in left shoulder M25.512 [facility] [id number] [place] [address] May, Pain in right shoulder M25.[address] [address] Apr, Pain in right shoulder M25.[address] [address] Dec, Tinea corporis B35.4 and Sinusitis J32.[address] [address] Sep, Sinusitis chronic, frontal J32.1 and URI (upper respiratory infection) J06.[address] [address] May, Shoulder pain, right 719.[address] [address] January, Chronic airway obstruction, not elsewhere classified 496 ; Palpitations 785.1 ; Bleeds easily 287.9 and Mixed hyperlipidemia 272.2 [place] [address] [place] [address] 14 Dec, 2014 [place] [id number] [place] [address] Dec, [place] [address] [id number] [address] Sep, [facility] [address] [facility] [id number] [address] Sep, [facility] [place] [facility] [address] [facility] [id number] [address] Aug, [facility] [place] [facility] [address] [facility] [id number] [address] Aug, [facility] [place] [address] [place] [address] Aug, [facility] [place] [facility] [id number] [address] Aug, [facility] [place] [facility] [address] [id number], [place] [address] Jul, [facility] [place] [facility] [address] [id number], [place] [address] Jul, [facility] [address] [place] [address] Jul, [facility] [address] [place] [address] Jul, [facility] [place] [facility] [address] [id number] [address] Jul, [facility] [place] [facility] [address] [id number], [place] [address] Jul, [facility] [place] [facility] [address] [facility] [id number], [place] [address] May, [facility] [place] [facility] [address] [facility] [id number] [address] May, [facility] [address] [place] [address] 08 May, 2014 [facility] [place] [facility] [address] [facility] [id number] [address] May, [facility] [place] [facility] [address] [facility] [id number] [address] Feb, [facility] [address] [facility] [place] [address] Feb, [facility] [address] [facility] [place] [address] Feb, [facility] [address] [facility] [id number] [place] [address] Feb, [facility] [address] [facility] [place] [address] Feb, [facility] [address] [facility] [id number] [place] [address] Feb, [facility] [place] [facility] [address] [facility] [id number] [place] [address] January, [facility] [address] [facility] [id number] [place] [address] January, [facility] [address] [facility] [place] [address] January, [facility] [address] [facility] [id number] [place] [address] January, [facility] [place] [facility] [address] [facility] [id number] [place] [address] Dec, [facility] [place] [facility] [address] [facility] [id number] [place] [address] Dec, [facility] [place] [facility] [address] [facility] [id number], [place] [address] Dec, [facility] [place] [facility] [address] [facility] [id number] [address] Nov, [facility] [place] [facility] [address] [facility] [id number] [place] [address] Nov, [facility] [address] [facility] [place] [address] Nov, [facility] [place] [facility] [address] [facility] [id number] [address] Nov, [facility] [place] [facility] [address] [id number] [place] [address] 18 May, 2013 [facility] [place] [address] [facility] [place] [address] May, [facility] [address] [id number] [place] [address] 10 May, 2013 [facility] [address] [id number] [place] [address] 09 May, 2013 [facility] [address] [id number] [place] [address] January, [facility] [address] [id number] [place] [address] Nov, [facility] [address] [facility] [id number] [place] [address] Jul, [facility] [address] [id number] [place] [address] Jul, [facility] [address] [facility] [id number] [place] [address] Jun, [facility] [address] [facility] [id number] [place] [address] Jun, [facility] [address] [facility] [id number] [place] [address] January, [facility] [address] [id number] [place] [address] January, [facility] [address] [id number] [place] [address] January, [facility] [address] [facility] [id number] [place] [address] Dec, [facility] [address] [facility] [id number] [place] [address] Oct, [facility] [address] [id number] [address] Oct, [facility] [address] [facility] [id number] [place] [address] Oct, [facility] [address] [facility] [id number] [address] Oct, [facility] [address] [facility] [id number] [place] [address] Sep, [facility] [place] [address] [facility] [id number][place] [id number] Sep, IMMUNIZATIONS No Known Immunizations SOCIAL HISTORY Never Assessed REASON FOR VISIT EMR-[facility] [place] PLAN OF CARE VITAL SIGNS MEDICATIONS Unknown Medications RESULTS No Results PROCEDURES No Known procedures INSTRUCTIONS MEDICATIONS ADMINISTERED No Known Medications MEDICAL (GENERAL) HISTORY Type Description Date Medical History Chronic obstructive pulmonary disease, unspecified Medical History Mixed hyperlipidemia Medical History Palpitations Medical History Marfan''s syndrome, unspecified Medical History Epilepsy, unspecified, not intractable, without status epilepticus Medical History Family history of prostate cancer Surgical History C 5-7 fusion 2006 Surgical History Cadiac ablation-stroke at this time 2006 Hospitalization History Hospitalization for surgery only Hospitalization [place]
--- OUTSIDE RECORDS SUMMARY | 2019-02-13 07:04 | XMS REPORT ---
Author Author Migration, Doctor Organization [facility] Address Unknown Phone Unavailable Care Team Providers Care Supervising Airplane Pilot Name Role Phone Migration, Doctor Unavailable Unavailable PROBLEMS Type Condition ICD9-CM Code WHX93-ND Code Onset Dates Condition Status SNOMED Code Problem Tinea corporis B35.4 Active 99412328 Problem Palpitations R00.2 Active 10631573 Problem Sinusitis J32.9 Active 11970126 Problem Pain in right shoulder M25.511 Active 328973578 Problem Marfan's syndrome, unspecified Q87.40 Active 27234991 Problem Mixed hyperlipidemia E78.2 Active 909087650 Problem ETD (eustachian tube dysfunction), left H69.82 Active 52079967 Problem Tobacco dependence F17.200 Active 58111045 Problem Left maxillary sinusitis J32.0 Active 06139179 Problem Epilepsy, unspecified, not intractable, without status epilepticus G40.909 Active 32795760 Problem Generalized anxiety disorder F41.1 Active 99131208 Problem Chronic obstructive pulmonary disease, unspecified J44.9 Active 16042760 Problem Major depressive disorder, recurrent 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 Active 85750542 Problem Type 1 diabetes mellitus without complications E10.9 Active 541471302 Problem PSVT (paroxysmal supraventricular tachycardia) I47.1 Active 27956907 Problem Cerebrovascular accident (CVA), unspecified mechanism I63.9 Active 038681513 ALLERGIES No Information ENCOUNTERS Encounter Location Date Diagnosis [facility] [address] [place] [address] Nov, [facility] [address] [place] [address] Jul, Mixed hyperlipidemia E78.2 [facility] [address] [place] [address] Jul, Encounter for immunization Z23 [facility] [address] [place] [address] Jul, Major depressive disorder, recurrent 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 and Generalized anxiety disorder F41.1 [facility] [address] [address] Feb, [facility] [address] [address] January, Left maxillary sinusitis J32.[address] [address] 17 Oct, 2017 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 ; Palpitations R00.2 ; PSVT ( paroxysmal supraventricular tachycardia) I47.1 ; Cerebrovascular accident (CVA) , unspecified mechanism I63.9 and Tobacco use Z72.[address] [address] Apr, Tobacco dependence F17.200 and Type 1 diabetes mellitus without complications E10.[address] [address] Mar, Tobacco dependence F17.200 ; Chronic obstructive pulmonary disease, unspecified J44.9 ; Mixed hyperlipidemia E78.2 ; Palpitations R00.2 and Family history of prostate cancer Z80.[address] [address] Dec, Major depressive disorder, recurrent 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 ; Type 1 diabetes mellitus without complications E10.9 and 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 [address] Jul, ETD ( eustachian tube dysfunction), left H69.82 and Tobacco dependence F17.200 [facility] [address] [facility] [id number] [address] Jun, Pain in left shoulder M25.512 [facility] [address] [place] [address] Jun, Pain in left shoulder M25.512 [facility] [address] [place] [address] Jun, Pain in left shoulder M25.512 [facility] [id number] [place] [address] Jun, Pain in left shoulder M25.512 [facility] [id number] [place] [address] Jun, Pain in left shoulder M25.512 [facility] [id number] [place] [address] May, Pain in right shoulder M25.[address] [address] Apr, Pain in right shoulder M25.[address] [address] Dec, Tinea corporis B35.4 and Sinusitis J32.[address] [address] Sep, Sinusitis chronic, frontal J32.1 and URI (upper respiratory infection) J06.[address] [address] May, Shoulder pain, right 719.[address] [address] January, Chronic airway obstruction, not elsewhere classified 496 ; Palpitations 785.1 ; Bleeds easily 287.9 and Mixed hyperlipidemia 272.2 [place] [address] [place] [address] 14 Dec, 2014 [place] [id number] [place] [address] Dec, [place] [address] [id number] [address] Sep, [facility] [address] [facility] [id number] [address] Sep, [facility] [place] [facility] [address] [facility] [id number] [address] Aug, [facility] [place] [facility] [address] [facility] [id number] [address] Aug, [facility] [place] [address] [place] [address] Aug, [facility] [place] [facility] [address] [id number] [address] Aug, [facility] [place] [facility] [address] [id number] [address] Jul, [facility] [place] [facility] [address] [id number] [address] Jul, [facility] [place] [address] [place] [address] Jul, [facility] [place] [address] [place] [address] Jul, [facility] [place] [facility] [address] [id number] [address] Jul, [facility] [place] [facility] [address] [id number] [address] Jul, [facility] [place] [facility] [address] [facility] [id number] [address] May, [facility] [place] [facility] [address] [facility] [id number] [address] May, [facility] [place] [address] [place] [address] 08 May, 2014 [facility] [place] [facility] [address] [facility] [id number] [address] May, [facility] [place] [facility] [address] [facility] [id number] [address] Feb, [facility] [place] [address] [place] [facility] [place] [address] Feb, [facility] [place] [address] [place] [facility] [place] [address] Feb, [facility] [address] [facility] [id number] [place] [address] Feb, [facility] [place] [address] [facility] [place] [address] Feb, [facility] [address] [facility] [id number] [place] [address] Feb, [facility] [place] [facility] [address] [facility] [id number] [place] [address] January, [facility] [address] [facility] [id number] [place] [address] January, [facility] [place] [address] [facility] [place] [address] January, [facility] [address] [facility] [id number] [place] [address] January, [facility] [place] [facility] [address] [facility] [id number] [place] [address] Dec, [facility] [place] [facility] [address] [facility] [id number] [place] [address] Dec, [facility] [place] [facility] [address] [facility] [id number] [address] Dec, [facility] [place] [facility] [address] [facility] [id number] [address] Nov, [facility] [place] [facility] [address] [facility] [id number] [place] [address] Nov, [facility] [place] [address] [facility] [place] [address] Nov, [facility] [place] [facility] [address] [facility] [id number] [address] Nov, [facility] [place] [facility] [address] [id number] [place] [address] 18 May, 2013 [facility] [place] [address] [place] [address] May, [facility] [address] [id number] [place] [address] 10 May, 2013 [facility] [address] [id number] [place] [address] 09 May, 2013 [facility] [address] [id number] [place] [address] January, [facility] [address] [id number] [place] [address] Nov, [facility] [address] [facility] [id number] [place] [address] Jul, [facility] [address] [id number] [place] [address] Jul, [facility] [address] [facility] [id number] [place] [address] Jun, [facility] [address] [facility] [id number] [place] [address] Jun, [facility] [address] [facility] [id number] [place] [address] January, [facility] [address] [id number] [place] [address] January, [facility] [address] [id number] [place] [address] January, [facility] [address] [facility] [id number] [place] [address] Dec, [facility] [address] [facility] [id number] [place] [address] Oct, [facility] [address] [id number] [address] Oct, [facility] [address] [facility] [id number] [place] [address] Oct, [facility] [address] [facility] [id number] [address] Oct, [facility] [address] [facility] [id number] [place] [address] Sep, Jai COOPER [address] [facility] [id number] [id number] Sep, IMMUNIZATIONS No Known Immunizations SOCIAL HISTORY Never Assessed REASON FOR VISIT E[place] [place] CARE VITAL SIGNS MEDICATIONS Unknown [...]
--- OUTSIDE RECORDS SUMMARY | 2019-02-13 07:04 | XMS REPORT ---
Author Author Mya Shea [facility] Address [address] [place], [place] [id number] Care Team Providers Care Math And Sciences Department Chair Name Role Phone Mya Shea PCP Unavailable Allergies and Adverse Reactions Name Reaction Notes No known allergies Plan of Treatment Planned Activity Comments Planned Date Planned Time Plan/Goal Tetanus and diphtheria toxoids (Td) 01/26/2019 12:00 AM Medications Active Name Start Date Estimated Completion Date SIG Comments Cardizem oral digoxin oral metoprolol tartrate oral gabapentin oral Seroquel oral Chantix oral Problem List Description Status Onset Depression Active Neuropathic pain Active Tachycardia Active Vital Signs Date Time BP-Sys(mm[Hg] BP-Moer(mm[Hg]) HR(bpm) RR(rpm) Temp WT HT HC BMI BSA BMI Percentile O2 Sat(%) 01/26/2019 12:43:00 PM 114 mmHg 76 mmHg 123 bpm 16 rpm 99.1 F 150.375 lbs 72 in 20.3943 kg/m 1.8615 m 98 % Social History Name Description Comments Alcohol Use 01/26/2019 - heavy Smoker Current every day 01/26/2019 - currently taking Chantix History of Procedures Date Ordered Description Order Status 01/26/2019 12:00 AM THER/PROPH/DIAG INJ SC/IM Reviewed Results Summary Not available. History Of Immunizations Not available. History of Past Illness Name Date of Onset Comments Neuropathic pain Neck fracture Depression Tachycardia Stroke Seizure disorder Foot pain, right Jan 26 2019 12:45PM Avulsion of skin of right foot, initial encounter Jan 26 2019 12:45PM Open wound Jan 26 2019 12:45PM Payers Insurance Name Company Name Plan Name Plan Number Policy Number Policy Group Number Start Date [facility] Comm [id number] N/A History of Encounters Visit Date Visit Type Provider 01/26/2019 Office visit Mya Shea TABULATING CLERK
--- OUTSIDE RECORDS SUMMARY | 2019-02-13 07:09 | XMS REPORT | Continuity of Care Document ---
Author Organization Unknown Address Unknown Allergies Active Description Code Type Severity Reaction Onset Reported/Identified Relationship to Patient Clinical Status Yes NKA Drug N/A N/A Yes No Known Drug Allergies [id number] Drug Allergy Unknown N/A 12/17/2011 Yes Abilify Drug Allergy N/A N/A 06/11/2013 Medications There is no data. Problems Date [...] CAUSE UNSPECIFIED 10/18/2011 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 10/18/2011 JOSE WAKEFIELD DO 427.89 OTHER SPECIFIED CARDIAC DYSRHYTHMIAS 10/18/2011 WAKEFIELD [...] ELKINS DDS, SHANT 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 10/18/2011 ANDREIA SANTOS, VICTORIANO Gupta 427.89 OTHER SPECIFIED CARDIAC DYSRHYTHMIAS 10/18/2011 VICTORIANO [...] 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 07/09/2012 JOSE WAKEFIELD DO 785.1 PALPITATIONS 07/09/2012 785.1 PALPITATIONS 07/09/2012 JOSE WAKEFIELD DO 785.1 PALPITATIONS 07/09/2012 ONEAL DDSJANNIE 785.1 PALPITATIONS 07/09/2012 BRITTNI DDSSHANT 785.1 PALPITATIONS 07/09/2012 VICTORIANO BOSWELL MD 785.1 PALPITATIONS 07/09/2012 VICTORIANO BOSWELL MD 785.1 PALPITATIONS 07/09/2012 VICTORIANO BOSWELL MD 785.1 PALPITATIONS 07/09/2012 VICTORIANO BOSWELL MD 785.1 PALPITATIONS 07/09/2012 VICTORIANO BOSWELL MD 785.1 PALPITATIONS 07/09/2012 VICTORIANO BOSWELL MD 785.1 PALPITATIONS 07/09/2012 785.1 PALPITATIONS 2012 Ot 785.0 TACHYCARDIA NOS 2012 Ot 785.1 PALPITATIONS 01/29/2013 JOSE WAKEFIELD DO V76.51 COLON CANCER SCREENING 01/29/2013 V76.51 COLON CANCER SCREENING 01/29/2013 JOSE WAKEFIELD DO V76.51 COLON CANCER SCREENING 01/29/2013 ONEAL ESCALANTESJANNIE V76.51 COLON CANCER SCREENING 01/29/2013 BRITTNI KAHN, SHANT V76.51 COLON CANCER SCREENING 01/29/2013 VICTORIANO BOSWELL MD V76.51 COLON CANCER SCREENING 01/29/2013 VICTORIANO BOSWELL MD V76.51 COLON CANCER SCREENING 01/29/2013 VICTORIANO BOSWELL MD V76.51 COLON CANCER SCREENING 01/29/2013 VICTORIANO BOSWELL MD V76.51 COLON CANCER SCREENING 01/29/2013 VICTORIANO BOSWELL MD V76.51 COLON CANCER SCREENING 01/29/2013 VICTORIANO BOSWELL MD V76.51 COLON CANCER SCREENING 06/11/2013 785.0 TACHYCARDIA 06/11/2013 WAKEFIELD DO, JOSE K 785.0 TACHYCARDIA 06/11/2013 ONEAL ESCALANTES, JANNIE Trejo 785.0 TACHYCARDIA 06/11/2013 BRITTNI KAHN, SHANT 785.0 TACHYCARDIA 06/11/2013 VICTORIANO BOSWELL MD 785.0 TACHYCARDIA 06/11/2013 ANDREIA SANTOS, VICTORIANO Gupta 785.0 TACHYCARDIA 06/11/2013 ANDREIA SANTOS, VICTORIANO Gupta 785.0 TACHYCARDIA 06/11/2013 ANDREIA SANTOS, VICTORIANO Gupta 785.0 TACHYCARDIA 06/11/2013 ANDREIA SANTOS, VICTORIANO Gupta 785.0 TACHYCARDIA 06/11/2013 VICTORIANO BOSWELL MD 785.0 TACHYCARDIA 06/17/2013 WAKEFIELD DO, JOSE K 305.1 TOBACCO ABUSE 06/17/2013 WAKEFIELD DO, JOSE K 345.90 SEIZURE DISORDER 06/17/2013 WAKEFIELD DO, JOSE K 427.0 PAROXYSMAL SUPRAVENTRICULAR TACHYCARDIA 06/17/2013 WAKEFIELD DO, JOSE K 438.9 CVA LATE EFFECTS 06/17/2013 WAKEFIELD DO, JOSE K 496 COPD 06/17/2013 WAKEFIELD DO, JOSE K 786.09 DYSPNEA 06/17/2013 WAKEFIELD DO, JOSE K 786.50 CHEST PAIN 06/17/2013 ONEAL DDS, JANNIE Trejo 305.1 TOBACCO ABUSE 06/17/2013 ONEAL DDS, JANNIE [...] ELKINS DDS, SHANT 786.50 CHEST PAIN 06/17/2013 VICTORIANO BOSWELL MD [...] VICTORIANO BOSWELL MD 786.50 CHEST PAIN 12/01/2013 JANNIE NO DDS 214.8 LIPOMA OF OTHER SPECIFIED SITES 12/01/2013 JANNIE NO DDS 521.00 UNSPECIFIED DENTAL CARIES 12/01/2013 SHANT ELKINS DDS 214.8 LIPOMA OF OTHER SPECIFIED SITES 12/01/2013 [...] MD 521.00 UNSPECIFIED DENTAL CARIES 12/04/2013 ONEAL ESCALANTES, JANNIE Trejo V72.2 DENTAL EXAMINATION 12/04/2013 SHANT ELKINS DDS V72.2 DENTAL EXAMINATION 12/04/2013 VICTORIANO BOSWELL MD V72.2 DENTAL EXAMINATION 12/04/2013 VICTORIANO BOSWELL MD V72.2 DENTAL EXAMINATION 12/04/2013 VICTORIANO BOSWELL MD V72.2 DENTAL EXAMINATION 12/04/2013 VICTORIANO BOSWELL MD V72.2 DENTAL EXAMINATION 12/04/2013 VICTORIANO BOSWELL MD V72.2 DENTAL EXAMINATION 12/04/2013 VICTORIANO BOSWELL MD V72.2 DENTAL EXAMINATION 01/13/2014 SHANT ELKINS DDS 250.01 DIABETES 1 CONTROLLED 01/13/2014 SHANT ELKINS DDS 433.10 CAROTID 01/13/2014 VICTORIANO BOSWELL MD 250.01 [...] BOSWELL MD 724.2 BACK PAIN, LOWER 03/08/2014 ANDREIA SANTOS, VICTORIANO Gupta 724.2 BACK PAIN, LOWER 03/08/2014 ANDREIA SANTOS, VICTORIANO Gupta 724.2 BACK PAIN, LOWER 03/08/2014 ANDREIA SANTOS, VICTORIANO Gupta 724.2 BACK PAIN, LOWER 08/13/2014 VICTORIANO BOSWELL MD V03.82 PPV23 (PNEUMOVAX) DX 08/13/2014 VICTORINAO BOSWELL MD V04.81 FLU SHOT 08/13/2014 VICTORIANO [...] Ot 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 05/29/2017 MYRA SANTOS FACGuerita, ALI FACP CCDS Ot 786.09 RESPIRATORY ABNORM NEC 05/29/2017 MYRA SANTOS FACC, ALI FACP CCDS Ot 786.50 CHEST PAIN NOS 05/29/2017 MYRA SANTOS FACC, ALI FACP CCDS Ot 424.0 MITRAL VALVE DISORDER 05/29/2017 MYRA SANTOS FACC, ALI FACP CCDS Ot 427.0 PAROX ATRIAL TACHYCARDIA 06/04/2017 Ot 397.0 TRICUSPID VALVE DISEASE 06/04/2017 Ot 424.0 MITRAL VALVE DISORDER 06/04/2017 Ot 427.89 CARDIAC DYSRHYTHMIAS NEC 06/04/2017 Ot 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 06/04/2017 Ot 785.0 TACHYCARDIA NOS 06/04/2017 Ot 785.1 PALPITATIONS 06/04/2017 Ot 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 06/04/2017 MYRA SANTOS [facility], ALI ADRIANA CCDS Ot 786.09 RESPIRATORY ABNORM NEC 06/04/2017 MYRA SANTOS [facility], [facility] CCDS Ot 786.50 CHEST PAIN NOS 06/04/2017 MYRA SANTOS [facility], [facility] CCDS Ot 424.0 MITRAL VALVE DISORDER 06/04/2017 MYRA SANTOS [facility], [facility] ADRIANAP CCDS Ot 427.0 PAROX ATRIAL TACHYCARDIA 12/31/2017 JOHAN DAVIES MD Ot I08.1 RHEUMATIC DISORDERS [...] UNSPECIFIED 12/20/2018 VINCENT BOBO APRN Ot Z79.51 GEOPHYSICAL PROSPECTING SURVEYOR (CURRENT) USE OF INHALED STERO 12/20/2018 VINCENT BOBO APRN Ot Z79.82 GEOPHYSICAL PROSPECTING SURVEYOR (CURRENT) USE OF ASPIRIN 12/20/2018 VINCENT BOBO [...] UNSPECIFIED 12/24/2018 VINCENT BOBO APRN Ot Z79.51 GEOPHYSICAL PROSPECTING SURVEYOR (CURRENT) USE OF INHALED STERO 12/24/2018 VINCENT BOBO APRN Ot Z79.82 GEOPHYSICAL PROSPECTING SURVEYOR (CURRENT) USE OF ASPIRIN 12/24/2018 VINCENT BOBO APRN Ot Z98.1 ARTHRODESIS STATUS 12/24/2018 VINCENT BOBO APRN Ot Z98.890 OTHER SPECIFIED POSTPROCEDURAL STATES 12/24/2018 JOHAN DAVIES MD Ot F10.21 ALCOHOL DEPENDENCE, IN REMISSION 12/24/2018 JOHAN DAVIES MD Ot F17.210 NICOTINE DEPENDENCE, CIGARETTES, UNCOMPL 12/24/2018 JOHAN DAVIES MD Ot I10 ESSENTIAL (PRIMARY) HYPERTENSION 12/24/2018 JOHAN DAVIES MD Ot I25.10 ATHSCL HEART DISEASE OF [place] CORONARY 12/24/2018 JOHAN DAVIES MD Ot I47.1 SUPRAVENTRICULAR TACHYCARDIA 12/24/2018 JOHAN DAVIES MD Ot I65.23 OCCLUSION AND STENOSIS OF BILATERAL [place] 12/24/2018 JOHAN DAVIES MD Ot J44.9 CHRONIC OBSTRUCTIVE PULMONARY DISEASE, U 12/24/2018 JOHAN DAVIES MD Ot Q87.40 MARFAN'S SYNDROME, UNSPECIFIED 12/24/2018 JOHAN DAVIES MD Ot R00.2 PALPITATIONS 12/26/2018 JOHAN DAVIES MD Ot F10.21 ALCOHOL DEPENDENCE, IN REMISSION 12/26/2018 JOHAN DAVIES MD Ot F17.210 NICOTINE DEPENDENCE, CIGARETTES, UNCOMPL 12/26/2018 JOHAN DAVIES MD Ot I10 ESSENTIAL (PRIMARY) HYPERTENSION 12/26/2018 JOHAN DAVIES MD Ot I25.10 ATHSCL HEART DISEASE OF [place] CORONARY 12/26/2018 JOHAN DAVIES MD Ot I47.1 SUPRAVENTRICULAR TACHYCARDIA 12/26/2018 JOHAN DAVIES MD Ot I65.23 OCCLUSION AND STENOSIS OF BILATERAL [place] 12/26/2018 JOHAN DAVIES MD Ot J44.9 CHRONIC OBSTRUCTIVE PULMONARY DISEASE, U 12/26/2018 JOHAN DAVIES MD, Ot Q87.40 MARFAN'S SYNDROME, UNSPECIFIED 12/26/2018 JOHAN DAVIES MD Ot R00.2 PALPITATIONS Procedures Code Description [place] [address] ROUTINE VENIPUNCTURE GERMAN SANTOS, TERESA Mccallum 01/24/2009 66164 X-RAY EXAM OF NECK SPINE GERMAN SANTOS, TERESA Mccallum 01/24/2009 71410 COMPREHEN METABOLIC PANEL GERMAN SANTOS, TERESA Mccallum 01/24/2009 11671 DRUG SCREEN, QUALITATE/ MULTI GERMAN SANTOS, TERESA Mccallum 01/24/2009 32857 ASSAY OF BREATH ETHANOL GERMAN SANTOS, TERESA Mccallum 01/24/2009 32705 COMPLETE CBC W/AUTO DIFF WBC GERMAN SANTOS, TERESA Mccallum 01/24/2009 92265 THER/PROPH/DIAG IV INF, INIT GERMAN SANTOS, TERESA Mccallum 01/24/2009 79219 THER/PROPH/DIAG INJ, SC/IM GERMAN SANTOS, TERESA Mccallum 01/24/2009 17169 EMERGENCY DEPT VISIT GERMAN SANTOS, TERESA Mccallum 01/24/2009 9929 INJECT/INFUSE NEC GERMAN SANTOS, TERESA Mccallum 01/24/2009 J1610 GLUCAGON HCL INJ GERMAN SANTOS, TERESA Mccallum 01/24/2009 J3411 THIAMINE HCL 100 MG GERMAN SANTOS, TERESA Mccallum 01/24/2009 A0425 GROUND MILEAGE GERMAN SANTOS, TERESA Mccallum 01/24/2009 A0429 BLS EMERGENCY GERMAN SANTOS, TERESA Mccallum 01/24/[address] CHEST W/O DYE 12/03/2012 Cardiolog Teresita Brian 06/09/2013 89949 ROUTINE VENIPUNCTURE 06/17/2013 07405 CMP 06/17/2013 76826 LIPID PANEL 06/17/2013 1300726 GFR CALC (RESULT ONLY) 06/17/2013 54649 TSH 06/17/2013 51397 T4 FREE 06/17/2013 83629 DIGOXIN 06/17/2013 82733 STRESS TEST, CARDIAC ( SPECIFY TYPE) 06/19/2013 93935 US CAROTID DOPPLER 06/19/2013 D0099 NO CHARGE/FOLLOW UP 12/04/2013 GENERAL D ADRIANNA SIMON 12/04/2013 67386 ECHO 2D 01/13/2014 82917 OXIMETRY 01/13/2014 06846 EKG, TRACING (IN-HOUSE) 09/27/2014 67690 OXIMETRY 09/27/2014 Results Test Result Range Complete blood count (CBC) with automated white [...] 10:48 THYROID STIMULATING HORMONE 0.98 u[iU]/mL 0.35-4.94 Automated blood complete blood count (hemogram) panel - 12/24/18 12:18 Blood leukocytes automated count (number/volume) 8.1 10*3/uL 4.3-11.0 Blood erythrocytes automated count (number/volume) 4.53 10*6/uL 4.35-5.85 Venous blood hemoglobin measurement (mass/volume) 13.6 g/dL 13.3-17.7 Blood hematocrit (volume fraction) 41 % 40-54 Automated erythrocyte mean corpuscular volume 90 [foz_us] 80-99 Automated erythrocyte mean corpuscular hemoglobin (mass per erythrocyte) 30 pg 25-34 Automated erythrocyte mean corpuscular hemoglobin concentration measurement ( mass/volume) 33 g/dL 32-36 Automated erythrocyte distribution width ratio 14.2 % 10.0-14.5 Automated blood platelet count (count/volume) 219 10*3/uL 130-400 Automated blood platelet mean volume measurement 9.7 [foz_us] 7.4-10.4 PT panel in platelet poor plasma by coagulation assay - 12/24/18 12:18 Prothrombin time (PT) in platelet poor plasma by coagulation assay 12.0 s 12.2-14.7 INR in platelet poor plasma or blood by coagulation assay 0.9 0.8-1.4 Activated partial thromboplastin time (aPTT) in platelet poor plasma bycoagulation assay - 12/24/18 12:18 Activated partial thromboplastin time (aPTT) in platelet poor plasma bycoagulation assay 27 s 24-35 Comprehensive metabolic panel - 12/24/18 12:18 Serum or plasma sodium measurement (moles/volume) 138 mmol/L 135-145 Serum or plasma potassium measurement (moles/volume) 3.5 mmol/L 3.6-5.0 Serum or plasma chloride measurement (moles/volume) 102 mmol/L 98-107 Carbon dioxide 24 mmol/L 21-32 Serum or plasma anion gap determination (moles/volume) 12 mmol/L 5-14 Serum or plasma urea nitrogen measurement (mass/volume) 14 mg/dL 7-18 Serum or plasma creatinine measurement (mass/volume) 0.84 mg/dL 0.60-1.30 Serum or plasma urea nitrogen/creatinine mass ratio 17 NRG Serum or plasma creatinine measurement with calculation of estimated glomerular filtration rate > NRG Serum or plasma glucose measurement (mass/volume) 101 mg/dL 70-105 Serum or plasma calcium measurement (mass/volume) 9.2 mg/dL 8.5-10.1 Serum or plasma total bilirubin measurement (mass/volume) 0.5 mg/dL 0.1-1.0 Serum or plasma alkaline phosphatase measurement (enzymatic activity/volume) 74 U/L 40-136 Serum or plasma aspartate aminotransferase measurement (enzymatic activity/ volume) 20 U/L 5-34 Serum or plasma alanine aminotransferase measurement (enzymatic activity/volume ) 16 U/L 0-55 Serum or plasma protein measurement (mass/volume) 7.3 g/dL 6.4-8.2 Serum or plasma albumin measurement (mass/volume) 4.5 g/dL 3.2-4.5 CALCIUM CORRECTED 8.8 mg/dL 8.5-10.1 Lipid 1996 panel - 12/24/18 12:18 Serum or plasma triglyceride measurement (mass/volume) 158 mg/dL <150 Serum or plasma cholesterol measurement (mass/volume) 176 mg/dL < 200 Serum or plasma cholesterol in HDL measurement (mass/volume) 88 mg/ dL 40-60 Cholesterol in LDL [mass/volume] in serum or plasma by direct assay 54 mg/dL 1-129 Serum or plasma cholesterol in VLDL measurement (mass/volume) 32 mg/ dL 5-40 Methicillin resistant Staphylococcus aureus (MRSA) screening culture - 12:18 Methicillin resistant Staphylococcus aureus (MRSA) screening culture NEG NRG Encounters ACCT No. Visit Date/Time Discharge Status Pt. Type Provider Facility Loc./Unit Complaint [id number] 01/24/2009 19:35:00 01/24/2009 23:59:59 CLS Emergency [id number] 01/24/2009 18:17:00 01/24/2009 23:59:59 CLS Outpatient [id number] 01/26/2019 13:32:32 01/26/2019 23:59:59 CLS Outpatient Mya Shea [id number] 02/10/2019 13:00:00 02/10/2019 13:00:00 CAN Preadmit Melody ROBB MD [facility] PREOP NSVT [id number] 12/24/2018 11:46:00 12/24/2018 18:10:00 DIS Outpatient JOHAN DAVIES MD [facility] CATH NSVT, PALPITATIONS, DYSPENA [id number] 12/18/2018 09:40:00 12/18/2018 12:10:00 DIS Outpatient VINCENT BOBO APRN [facility] ER SVT [id number] 12/15/2018 16:14:00 12/15/2018 23:59:59 CLS Outpatient JADE PROCTOR [facility] CARD COPD, PSVT [id number] 12/30/2017 10:43:00 12/30/2017 23:59:59 CLS Outpatient JOHAN DAVIES MD [facility] CARD R00.2 PALPITATIONS [id number] 06/05/2017 12:00:00 06/05/2017 23:59:59 CLS Preadmit JOHAN DAVIES MD [facility] CARD PSVT [id number] 02/08/2014 10:56:00 02/08/2014 23:59:59 CLS Outpatient MYRA SANTOS FACC, ALI FACP CCDS [facility] CARD AV JUNCTIONAL BEATS,STROKE [id number] 06/22/2013 12:21:00 06/22/2013 23:59:59 CLS Outpatient MYRA SANTOS FACC, ALI FACP CCDS [facility] RAD DYSPNEA,CHEST PAIN [id number] 02/13/2019 08:00:00 PEN Preadmit Melody ROBB MD [facility] CATH NSVT, PSVT [id number] 12/08/2012 11:06:00 Document Registration [id number] 10/31/2012 08:00:00 Document Registration [id number] 08/01/2012 08:22:00 Document Registration [id number] 02/15/2012 11:30:00 Document Registration [id number] 12/17/2011 10:52:00 Document Registration [id number] 11/16/2011 11:26:00 Document Registration [id number] 09/27/2014 00:00:00 09/27/2014 23:59:59 CLS Outpatient VICTORIANO BOSWELL MD [id number] 09/08/2014 09:10:00 09/08/2014 23:59:59 CLS Outpatient VICTORIANO BOSWELL MD [id number] 08/13/2014 15:09:00 08/13/2014 23:59:59 CLS Outpatient VICTORIANO BOSWELL MD [id number] 06/07/2014 10:11:00 06/07/2014 23:59:59 CLS Outpatient VICTORIANO BOSWELL MD [id number] 03/22/2014 14:54:00 03/22/2014 23:59:59 CLS Outpatient VICTORIANO BOSWELL MD [id number] 02/04/2014 09:08:00 02/04/2014 23:59:59 CLS Outpatient VICTORIANO BOSWELL MD [id number] 01/13/2014 11:04:00 01/13/2014 23:59:59 CLS Outpatient BRITTNI KAHNPETERW [id number] 12/04/2013 10:12:00 12/04/2013 23:59:59 CLS Outpatient ONEAL KAHNJANNIE [id number] 06/17/2013 09:43:00 06/17/2013 23:59:59 CLS Outpatient JOSE WAKEFIELD DO [id number] 12/03/2012 09:01:00 12/03/2012 23:59:59 [place] [id number] 08/06/2012 09:55:00 08/06/2012 23:59:59 CLS Outpatient [id number] 06/11/2013 10:30:00 Document Registration [id number] 12/09/2017 09:57:00 12/09/2017 09:57:00 DIS Emergency [facility] ER [id number] 12/18/2018 07:42:09 12/18/2018 23:59:59 DIS Outpatient VICTORIANO BOSWELL [facility] labs [id number] 03/24/2018 12:33:22 03/24/2018 23:59:59 DIS Outpatient FAUSTINO TRACY [facility] left maxillary sinusitis
[2019-02-13] MEDS ORDERED: ISOPROTERENOL 0.2 MG/D5W 50 ML IV ONE (07:15)
[2019-02-13 07:29] LABS: HEMOGLOBIN 13.3 G/DL (13.3-17.7); MEAN PLATELET VOLUME 9.8 FL (7.4-10.4); RED CELL DISTRIBUTION WIDTH 15.4 % (10.0-14.5); WHITE BLOOD COUNT 8.1 10^3/uL (4.3-11.0)
[2019-02-13] MEDS ORDERED: MIDAZOLAM 5 MG/5 ML (VERSED) VIAL ONE (07:39)
[2019-02-13 07:43] LABS: INR 0.9 (0.8-1.4)
[2019-02-13] MEDS ORDERED: PROPOFOL INJECTION 100 ML IV ONE (07:45)
[2019-02-13 07:51] LABS: ALANINE AMINOTRANSFERASE 17 U/L (0-55); ALBUMIN 4.5 GM/DL (3.2-4.5); ALKALINE PHOSPHATASE 67 U/L (40-136); BILIRUBIN,TOTAL 0.4 MG/DL (0.1-1.0); BUN/CREATININE RATIO 14; CALCIUM 9.5 MG/DL (8.5-10.1); CARBON DIOXIDE 19 MMOL/L (21-32); CHLORIDE 104 MMOL/L (98-107); CREATININE SERUM 0.84 MG/DL (0.60-1.30); GFR ESTIMATED > 60; GLUCOSE 96 MG/DL (70-105); POTASSIUM 3.8 MMOL/L (3.6-5.0); SODIUM 137 MMOL/L (135-145); TOTAL PROTEIN 7.2 GM/DL (6.4-8.2)
--- NOTE | 2019-02-13 10:37 | Electrophysiology Procedure ---
EP Procedure DATE OF SERVICE:02/13/19 Comprehensive EP study with induction. REFERRING MINCING MACHINE OPERATOR: Porfirio Bolanos MD CARDIAC RESTORATION SILVERSMITH: Marion Wick MD INDICATION: Palpitations, possible PSVT, nonsustained VT. PREOPERATIVE DIAGNOSIS:Palpitations, possible PSVT, nonsustained VT. POSTOPERATIVE DIAGNOSES: Nonsustained VT, noninducible PSVT. HISTORY: This is a 58-year-old gentleman with previous history of PSVT ablation in 2004. He presents with recurrent palpitations. Event monitor showed nonsustained VT were 17 beats. Coronary angiography was normal. Echocardiogram showed normal LV and RV size and function. Nuclear stress testing showed no LV scar. The patient is planned for comprehensive EP study and ablation. PROCEDURE PERFORMED: 1. Comprehensive EP study with induction. 2. Fluoroscopy. 3. Left atrial pacing and recording using the distal CS electrodes. 4. Drug infusion. 5. VT induction protocol. COMPLICATION: None. ESTIMATED BLOOD LOSS: 10 mL. CONTRAST USED: None. FLUOROSCOPY TIME: 11 minutes. FLUOROSCOPY DOSE: 51 mgy. SPECIMENS: None. ANESTHESIA: Done by our anesthesia colleagues. ANTICOAGULATION: None. PROCEDURE IN DETAIL: After informed consent was taken, the patient was brought to the EP lab. Anesthesia was provided by our anesthesia colleagues. The patient was draped and prepped in the usual sterile fashion. The patient presented to the EP lab in sinus rhythm. Access was gained in the right femoral vein with a 6-Citizen Of [place] and an 8-Citizen [place] sheath. Left access in left femoral vein was gained with 6-Citizen [place] and 6-Citizen [place] sheath respectively. High right atrial catheter was an Panchito catheter, right ventricular catheter was placed, his catheter and the CS catheter were also placed. A comprehensive EP study was done. Left atrial pacing and recording was done using the distal CS electrodes. Dual AV og physiology Was not demonstrated. PSVT was not induced with and without Isuprel Infusion. Rapid atrial pacing with and without Isuprel did not induce Any tachycardia. RV pacing did not demonstrate any concealed pathway. Distal CS pacing did not reveal any left-sided pathway. Aggressive VT induction protocol was done with 2 drive trains, including 600 ms and 400 ms with 3 extrastimuli. Most aggressive RV pacing was at 600/220/220/220 as well as 400/220/220/220. Only brief nonsustained VT for 5 beats was induced. The patienttolerated the procedure well and did not have any complication. The patientleft the lab in sinus rhythm. MEASUREMENTS/EP STUDY: AA interval 753 ms, AH interval 103 ms, HV interval 52 ms, QRS duration 66, QT interval 223 ms, AV Wenckebach when pacing at 430 ms, Retrograde Wenckebach when pacing at 450 ms, AV og ERP was 600/370 ms, Retrograde ERP was 600/400 ms, AV og ERP was 500/380 ms. PLAN: The patient will be observed overnight and will be discharged home today with precise followup instructions. Marion Wick MD, RS, CCDS Cardiac Electrophysiology Melody WICK MD February 13, 2019 10:37 am
[2019-02-13] MEDS ORDERED: PATIENT MAY USE OWN MEDS, ALL PO SCH (10:45)
--- NOTE | 2019-02-13 10:52 | Discharge Inst-Post CATH ---
Discharge Inst-CATH/EP Post Cardiac Cath/EP D/C Inst Follow Up/Plan Dr. Wick on previously scheduled appointment. <b>CARDIAC CATH/EP PROCEDURE DISCHARGE INSTRUCTIONS</b> Cardiac Rehab Please be expecting a follow up call from Cardiac Rehab within in one week. ACTIVITY * Go Home directly and rest. * Limit activity of the leg (or wrist if it was used) for 7 days including aerobics, swimming, jogging, bicycling, etc. * Restrict stair-climbing for 7 days if possible, if not, climb up with your non-cath leg, then bring together on the same step. * Avoid lifting, pushing, pulling or excessive movement of the affected extremity for 7 days. * Customary sexual activity may be resumed after 2 days-use caution not to use a position that strains or causes pain to the affected extremity. * No driving for 24 hours. * NO SMOKING. * Avoid straining for bowel movements for 7 days. * Gentle walking on level ground is allowed. * Returning to work will depend on the type of procedure and the results. Your doctor will discuss this with you. CALL YOUR DOCTOR FOR ANY OF THE FOLLOWING: *If bleeding from the puncture site occurs- Apply gentle pressure to site with clean cloth and call your doctor or EMS. * If a knot or lump forms under the skin, increases in size, or causes pain. * If bruising appears to be worsening or moving further down your leg instead of disappearing. * Temperature above 101 F. CARE OF YOUR GROIN INCISION; * Bruising or purple discoloration of the skin near the puncture site is common. * You may shower only, no bathtub bathing for 5 days. Be careful to avoid slipping as your leg may feel stiff. * If a closure device was used on your femoral artery, please see the attached guide regarding care of the device and your leg. * Leave dressing on FOR 24 hours. CARE OF YOUR WRIST INCISION; * Bruising or purple discoloration of the skin near the puncture site is common. * You may shower. * DO NOT submerge wrist. * Leave dressing on FOR 24 hours. Melody WICK MD February 13, 2019 10:52
--- NOTE | 2019-02-13 10:58 | Cardiology Discharge Summary ---
Diagnosis/Chief Complaint Date of Admission 02/13/2019 Date of Discharge 02/13/2019 Admission Diagnosis Nonsustained ventricular tachycardia, palpitations Final/Discharge Diagnosis Nonsustained ventricular tachycardia, noninducible PSVT Chief Complaint/HPI Chief Complaint/HPI This is a 58-year-old gentleman who previously had PSVT ablation in 2004. He complained of palpitations. Event monitor showed a 17 beat run of nonsustained VT. Coronary angiography was negative. Echocardiogram showed normal LV func tion. Normal RV size and function. Nuclear stress test showed no scar in the LV. He continued to complain of palpitations. Therefore EP study was recommended for evaluation of PSVT as well as VT induction. Discharge Summary Procedures EP study with induction. No dual AV og physiology. No PSVT induced with the without Isuprel. Aggressive VT induction protocol was done however no VT was induced. Discharge Physical Examination Stable. Hospital Course Was the Problem List Reviewed?: Yes Unremarkable. Pending Labs Laboratory Tests 02/13/19 07:18: White Blood Count 8.1, Red Blood Count 4.41, Hemoglobin 13.3, Hematocrit 38, Ashley n Corpuscular Volume 87, Mean Corpuscular Hemoglobin 30, Mean Corpuscular Hemoglobin Concent 35, Red Cell Distribution Width 15.4, Platelet Count 265, Mean Platelet Volume 9.8, Prothrombin Time 12.0, INR Comment 0.9, Activated Partial Thromboplast Time 27, Sodium Level 137, Potassium Level 3.8, Chloride Level 104, Carbon Dioxide Level 19, Anion Gap 14, Blood Urea Nitrogen 12, Creat inine 0.84, Estimat Glomerular Filtration Rate > 60, BUN/Creatinine Ratio 14, Glucose Level 96, Calcium Level 9.5, Corrected Calcium 9.1, Total Bilirubin 0.4, Aspartate Amino Transf (AST/SGOT) 22, Alanine Aminotransferase (ALT/SGPT) 17, Alkaline Phosphatase 67, Total Protein 7.2, Albumin 4.5 Discussion & Recommendations Discussion Discussed with the family. Continue same medication including beta jose. Follow up appt.: Dr. Wick at previously scheduled appointment. Dicharge Diet: Cardiac Diet Activity as Tolerated: Yes Home Medications Reviewed patient Home Medication Reconciliation performed by pharmacy medication reconciliations security installation technician and/or nursing. Patients Allergies have been reviewed. Discharge Home Medications: Reviewed and agree with Discharge Medication list on patient's Discharge Instruction sheet Condition at discharge Stable. Instructions to patient/family Dr. Wick on previously scheduled appointment. Melody WICK MD February 13, 2019 10:58
[2019-02-13] MEDS ORDERED: fentaNYL INJECTION 100 MCG/2 ML AMP ONE (11:01)
[2019-02-13] MEDS ORDERED: ONDANSETRON 4 MG/2 ML (SDV) Z0FRAN IVP PRN (11:15)
[2019-02-13] MEDS ORDERED: fentaNYL INJECTION 100 MCG/2 ML AMP IVP ONE (11:15)
[2019-02-13] MEDS ORDERED: MEPERIDINE (DEMEROL) INJ 50 MG/ML IVP ONE (11:15)
--- NOTE | 2019-02-13 11:35 | Cardiac Procedure Note-CS/ASA ---
Pre-Procedure Note Pre-Op Procedure Note H&P Reviewed The H&P was reviewed, patient examined and no changes noted. Date H&P Reviewed: February 13, 2019 Time H&P Reviewed: 08:00 Conscious Sedation Pre-Proced Time 08:00 ASA Score 3 For ASA 3 and 4: Consider anesthesia and medical clearance. Also, for patients with a history of failed moderate sedation consider anesthesia. Airway Lungs Heart ASA score ASA 1: a normal healthy patient ASA 2: a patient with a mild systemic disease (mid diabetes, controlled hypertension, obesity ASA 3: a patient with a severe systemic disease that limits activity (angina, COPD, prior Myocardial infarction) ASA 4: a patient with an incapacitating disease that is a constant threat to life (CHF, renal failure) ASA 5: a moribund patient not expected to survive 24 hrs. (ruptured aneurysm) ASA 6: a declared brain- patient whose organs are being harvested. For emergent operations, add the letter E after the classification Mallampati Classification Grade 1 Sedation Plan Analgesia, Amnesia, Plan communicated to team members, Discussed options with patient/fam, Discussed risks with patient/fam The patient is an appropriate candidate to undergo the planned procedure, sedation, and anesthesia. The patient immediately re-assessed prior to indication. Melody ROBB MD February 13, 2019 11:35 am
== END 2019-02-13 16:00 | disposition home or self-care (01) ==
LOC: CATH 07:00 → SDC 11:30 → CATH 16:00
PROVIDERS: ATTEND Internal Medicine Interventional Cardiology
DX: I47.2 Ventricular tachycardia (principal); Q87.40 Marfan syndrome, unspecified; F17.210 Nicotine dependence, cigarettes, uncomplicated; Z79.899 Other long term (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
CPT/HCPCS: 36415; 80053; 85027; 85610; 85730; 87081; 93620; 93621; 93623

== ENCOUNTER 2019-04-14 15:14 | Outpatient (RCR) | payer MEDICAID | END 2019-07-13 | disposition home or self-care (01) | LOC: CARD 15:14 | PROVIDERS: ATTEND Internal Medicine Interventional Cardiology | DX: I47.1 Supraventricular tachycardia (principal); I47.2 Ventricular tachycardia; R42 Dizziness and giddiness; R00.2 Palpitations ==

== ENCOUNTER 2019-06-11 08:10 | Day surgery (SDC) | payer MEDICAID ==
[~2019-06-11] VITALS: Ht 188 cm; Wt 67.1 kg
[~2019-06-11 08:10] MED LIST changes: +LIDOCAINE 1% INJ 20 ML 20 ML VIAL ONE
[2019-06-11] MEDS ORDERED: LIDOCAINE 1% INJ 20 ML 20 ML VIAL INJ ONE (08:15)
[2019-06-11 08:20] VITALS: BP 117/77
[2019-06-11 09:53] VITALS: BP 121/80
--- NOTE | 2019-06-11 16:55 | Implantation of Loop Monitor ---
Implant of Loop Monitior PROCEDURE PHYSICIAN: Marion Wick MD IMPLANTATION OF LOOP MONITOR REPORT DATE OF PROCEDURE: 06/11/19 PERFORMING PHYSICIAN: Dr. Giovany Wick. INDICATION: Long-term surveillance of atrial fibrillation PREOP DIAGNOSIS: Long-term surveillance of atrial fibrillation POSTOP DIAGNOSIS: Atrial fibrillation, s/p implantation of loop recorder. PROCEDURE DETAILS: The patient is a 58 male with history of paroxysmal atrial fibrillation requ iring long-term surveillance. Therefore implantable loop recorder was discussed and agreed with the patient. Informed consent was taken. All risks and complications were discussed at length. The patient was draped and prepped in the usual sterile fashion. Local anesthesia was lidocaine, which was given in the substernal area close to the 4th intercostal space. Loop monitor was imp lanted according to the protocol. Steri-Strips were placed at the end of the procedure. There were no complications and the patient tolerated the procedure well. The device was interrogated with a voltage of 0.62 mV. ANESTHESIA: Local anesthesia with lidocaine. COMPLICATIONS: None CONTRAST/FLUOROSCOPY: None CONCLUSION: 1. Successful implantation of loop monitor for paroxysmal atrial fibrillation. 2. No complication and the patient tolerated the procedure well. Marion Wick MD, [facility], CCDS Cardiac Electrophysiology Melody WICK MD Jun 11, 2019 16:55
== END 2019-06-11 09:54 ==
LOC: CATH 08:10
PROVIDERS: ATTEND Internal Medicine Interventional Cardiology
DX: I48.0 Paroxysmal atrial fibrillation (principal); J44.9 Chronic obstructive pulmonary disease, unspecified; I47.2 Ventricular tachycardia; F17.210 Nicotine dependence, cigarettes, uncomplicated; Z88.8 Allergy status to other drugs, medicaments and biological substances; Z88.6 Allergy status to analgesic agent; Z86.73 Personal history of transient ischemic attack (TIA), and cerebral infarction without residual deficits; Z82.3 Family history of stroke; Z82.49 Family history of ischemic heart disease and other diseases of the circulatory system
CPT/HCPCS: 33285

== ENCOUNTER → 2021-08-10 | Outpatient (CLI) | payer MEDICAID ==
[~2021-08-10] MED LIST changes: -LIDOCAINE 1% INJ 20 ML 20 ML VIAL ONE
== END ==
LOC: CARD 14:09
PROVIDERS: ATTEND Internal Medicine Cardiovascular Disease
DX: I34.0 Nonrheumatic mitral (valve) insufficiency (principal); I10 Essential (primary) hypertension
CPT/HCPCS: 93306

== ENCOUNTER → 2022-09-17 | Outpatient (CLI) | payer MEDICAID ==
[~2022-09-17] MED LIST changes: +CARI3CAP PO; +VARE1TAB28 PO; +VENL75CA93 PO; +[UNRECOGNIZED DRUG - CODE] PO
== END ==
LOC: CARD 10:48
PROVIDERS: ATTEND Internal Medicine Cardiovascular Disease
DX: I34.0 Nonrheumatic mitral (valve) insufficiency (principal); Z95.818 Presence of other cardiac implants and grafts; Z98.890 Other specified postprocedural states; Z86.79 Personal history of other diseases of the circulatory system
CPT/HCPCS: 93306

== ENCOUNTER 2022-09-19 07:04 | Day surgery (SDC) | payer MEDICAID ==
[2022-09-19] VITALS (14 sets, daily range): BP systolic 100–123; BP diastolic 67–81
[~2022-09-19] VITALS: Ht 182.9 cm; Wt 64.1 kg
[~2022-09-19 07:04] MED LIST changes: -CARI3CAP PO; -VARE1TAB28 PO; -VENL75CA93 PO; -[UNRECOGNIZED DRUG - CODE] PO
[2022-09-19] MEDS ORDERED: NS IV 1000 ML 1,000 ML IV SCH (07:45)
[2022-09-19] MEDS ORDERED: LIDOCAINE 2% VISCOUS 15 ML UDC ONE (07:47)
[2022-09-19] MEDS ORDERED: NS IV 1000 ML 1,000 ML ONE (07:47)
--- NOTE | 2022-09-19 08:25 | Cardiac Procedure Note-CS/ASA ---
Pre-Procedure Note Pre-Op Procedure Note Date of Available H&P: Sep 18, 2022 Date H&P Reviewed: Sep 19, 2022 Time H&P Reviewed: 08:25 History & Physical: H&P Reviewed, Patient Examed, No changes noted Pre-Operative Diagnosis: Mitral valve regurg Conscious Sedation Pre-Proced Time 08:25 ASA Score 3 For ASA 3 and 4: Consider anesthesia and medical clearance. Also, for patients with a history of failed moderate sedation consider anesthesia. Airway Lungs Heart ASA score ASA 1: a normal healthy patient ASA 2: a patient with a mild systemic disease (mid diabetes, controlled hypertension, obesity ASA 3: a patient with a severe systemic disease that limits activity (angina, COPD, prior Myocardial infarction) ASA 4: a patient with an incapacitating disease that is a constant threat to life (CHF, renal failure) ASA 5: a moribund patient not expected to survive 24 hrs. (ruptured aneurysm) ASA 6: a declared brain- patient whose organs are being harvested. For emergent operations, add the letter E after the classification Mallampati Classification Grade 3 Sedation Plan Analgesia, Amnesia, Plan communicated to team members, Discussed options with patient/fam, Discussed risks with patient/fam The patient is an appropriate candidate to undergo the planned procedure, sedation, and anesthesia. The patient immediately re-assessed prior to indication. JOHAN DAVIES MD Sep 19, 2022 08:25
[2022-09-19 08:27] LABS: HEMATOCRIT 40 % (40-54); HEMOGLOBIN 13.6 g/dL (13.3-17.7); MEAN CORPUSCULAR HEMOGLOBIN 30 pg (25-34); MEAN CORPUSCULAR HGB CONC 34 g/dL (32-36); MEAN CORPUSCULAR VOLUME 88 fL (80-99); MEAN PLATELET VOLUME 9.4 fL (9.0-12.2); PLATELET COUNT 227 10^3/uL (130-400); WHITE BLOOD COUNT 9.3 10^3/uL (4.3-11.0)
[2022-09-19] MEDS ORDERED: VARE1TAB28 PO (08:30)
[2022-09-19] MEDS ORDERED: CARI3CAP PO (08:30)
[2022-09-19] MEDS ORDERED: VENL75CA93 PO (08:30)
[2022-09-19] MEDS ORDERED: [UNRECOGNIZED DRUG - CODE] PO (08:30)
[2022-09-19 08:31] LABS: BILIRUBIN,URINE NEGATIVE (NEGATIVE); CLARITY,URINE CLEAR; COLOR,URINE YELLOW; GLUCOSE, URINE (UA) NEGATIVE (NEGATIVE); KETONES,URINE TRACE (NEGATIVE); LEUKOCYTE ESTERASE ,URINE NEGATIVE (NEGATIVE); NITRITE,URINE NEGATIVE (NEGATIVE); PROTEIN,URINE NEGATIVE (NEGATIVE)
--- NOTE | 2022-09-19 08:32 | Diagnostic Imaging Report ---
INDICATION: Heart disease. AP view of the chest obtained with comparison made study of 12/24/2018 FINDINGS: Heart size and pulmonary vascularity are within normal limits. There is no consolidation, overt edema or significant pleural fluid. Loop recorder seen in the left chest wall. IMPRESSION: No acute abnormality or adverse change. Dictated by: Dictated on workstation # [id number]
[2022-09-19 08:38] LABS: INR 0.9 (0.8-1.4); PROTHROMBIN TIME PATIENT 12.4 SEC (12.2-14.7)
[2022-09-19] MEDS ORDERED: fentaNYL INJ 100 MCG/2 ML AMP ONE (08:41)
[2022-09-19] MEDS ORDERED: MIDAZOLAM 2 MG/2 ML (VERSED) VIAL ONE (08:41)
[2022-09-19] MEDS ORDERED: LIDOCAINE 2% VISCOUS 15 ML UDC PO ONE (08:45)
[2022-09-19 08:47] LABS: BACTERIA,URINE NEGATIVE /HPF; SQUAMOUS EPITHELIAL CELL,UR RARE /HPF
[2022-09-19] MEDS ORDERED: MIDAZOLAM 5 MG/5 ML (VERSED) VIAL IVP ONE (09:00)
[2022-09-19] MEDS ORDERED: fentaNYL INJ 100 MCG/2 ML AMP IVP ONE (09:00)
--- NOTE | 2022-09-19 09:28 | Discharge Inst-Post CATH ---
Discharge Inst-CATH/EP Problems Reviewed?: Yes Post Cardiac Cath/EP D/C Inst Follow Up/Plan Appointment with Dr. Bolanos's office in 2 to 4 weeks <b>CARDIAC CATH/EP PROCEDURE DISCHARGE INSTRUCTIONS</b> ACTIVITY * Go Home directly and rest. * Limit activity of the leg (or wrist if it was used) for 7 days including aer obics, swimming, jogging, bicycling, etc. * Restrict stair-climbing for 7 days if possible, if not, climb up with your non-cath leg, then bring together on the same step. * Avoid lifting, pushing, pulling or excessive movement of the affected extremi ty for 7 days. * Customary sexual activity may be resumed after 2 days-use caution not to use a position that strains or causes pain to the affected extremity. * No driving for 24 hours. * NO SMOKING. * Avoid straining for bowel movements for 7 days. * Gentle walking on level ground is allowed. * Returning to work will depend on the type of procedure and the results. Your doctor will discuss this with you. CALL YOUR DOCTOR FOR ANY OF THE FOLLOWING: *If bleeding from the puncture site occurs- Apply gentle pressure to site with clean cloth and call your doctor or EMS. * If a knot or lump forms under the skin, increases in size, or causes pain. * If bruising appears to be worsening or moving further down your leg instead of disappearing. * Temperature above 101 F. CARE OF YOUR GROIN INCISION; * Bruising or purple discoloration of the skin near the puncture site is common. * You may shower only, no bathtub bathing for 5 days. Be careful to avoid slipping as your leg may feel stiff. * If a closure device was used on your femoral artery, please see the attached guide regarding care of the device and your leg. * Leave dressing on FOR 24 hours. CARE OF YOUR WRIST INCISION; * Bruising or purple discoloration of the skin near the puncture site is common. * You may shower. * DO NOT submerge wrist. * Leave dressing on FOR 24 hours. JOHAN BOLANOS MD Sep 19, 2022 09:28
[2022-09-19 09:29] LABS: ALBUMIN 4.3 GM/DL (3.2-4.5); BILIRUBIN,TOTAL 0.4 MG/DL (0.1-1.0); CALCIUM 9.3 MG/DL (8.5-10.1); CREATININE SERUM 0.92 MG/DL (0.60-1.30); POTASSIUM 3.6 MMOL/L (3.6-5.0); TOTAL PROTEIN 7.3 GM/DL (6.4-8.2)
--- NOTE | 2022-09-19 11:35 | Clinic Account Progress/Dx ---
Clinic Account Progress/Dx DIAGNOSIS: Date Seen by Provider: Sep 19, 2022 Time Seen by Provider: 11:35 Mitral regurgitation Marfan syndrome Hypertension JOHAN DAVIES MD Sep 19, 2022 11:35
== END 2022-09-19 13:02 ==
LOC: CATH 07:04 → SDC 09:54 → CATH 13:02
PROVIDERS: ATTEND Internal Medicine Cardiovascular Disease
DX: I34.0 Nonrheumatic mitral (valve) insufficiency (principal); Q87.40 Marfan syndrome, unspecified; I10 Essential (primary) hypertension; F17.210 Nicotine dependence, cigarettes, uncomplicated; I25.10 Atherosclerotic heart disease of native coronary artery without angina pectoris; J44.9 Chronic obstructive pulmonary disease, unspecified; I65.23 Occlusion and stenosis of bilateral carotid arteries; G40.919 Epilepsy, unspecified, intractable, without status epilepticus; I47.20 Ventricular tachycardia, unspecified; E78.2 Mixed hyperlipidemia
CPT/HCPCS: 36415; 71045; 80053; 80061; 81000; 85027; 85610; 85730; 87081; 93005; 93312

== ENCOUNTER → 2023-02-15 | Day surgery (SDC) | payer MEDICAID ==
[~2023-02-15] VITALS: Ht 182.9 cm; Wt 64.1 kg
[~2023-02-15] MED LIST changes: +CARI3CAP PO; +LIDOCAINE 1% INJ 20 ML VIAL INJ ONE; +LIDOCAINE 1% INJ 20 ML VIAL ONE; +VARE1TAB28 PO; +VENL75CA93 PO; +[UNRECOGNIZED DRUG - CODE] PO
--- NOTE | 2023-02-15 10:15 | Implantation of Loop Monitor ---
Implant of Loop Monitior IMPLANTATION OF LOOP MONITOR REPORT DATE OF PROCEDURE: 02/15/23 PREOP DIAGNOSIS: Ventricular tachycardia, paroxysmal supraventricular tachycardia POSTOP DIAGNOSIS: Ventricular tachycardia, paroxysmal supraventricular tachycardia PROCEDURE DETAILS: The patient is a 62 male with history of nonsustained ventricular tachycardia and paroxysmal supraventricular tachycardia, had ablation done in 2004, second ablation done in April 2022. Patient has a loop monitor that reached battery depletion an the device was extracted and he was scheduled for new device implantation. Therefore implantable loop recorder was discussed and agreed with the patient. Informed consent was taken. All risks and complications were discussed at length. The patient was draped and prepped in the usual sterile fashion. Local anesthesia was lidocaine, which was given in the substernal area close to the 4th intercostal space. Loop monitor DVTeltronic with serial number [id number] was implanted according to the protocol. Steri-Strips were placed at the end of the procedure. There were no complications and the patient tolerated the procedure well. ANESTHESIA: Local anesthesia with lidocaine. COMPLICATIONS: None CONTRAST/FLUOROSCOPY: None CONCLUSION: Successful implantation of loop monitor with no complication FINAL DIAGNOSIS: Paroxysmal supraventricular tachycardia Ventricular tachycardia Palpitation JOHAN DAVIES MD February 15, 2023 10:15
== END ==
LOC: CATH 08:38
PROVIDERS: ATTEND Internal Medicine Cardiovascular Disease
DX: I47.1 Supraventricular tachycardia (principal); E78.5 Hyperlipidemia, unspecified; I10 Essential (primary) hypertension; F17.210 Nicotine dependence, cigarettes, uncomplicated; I65.23 Occlusion and stenosis of bilateral carotid arteries; E78.2 Mixed hyperlipidemia; I63.9 Cerebral infarction, unspecified; Z79.899 Other long term (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
CPT/HCPCS: 33285; C1764